=== PATIENT | female | born 1955 | race Caucasian/White ===

== ENCOUNTER → 2018-07-27 | Day surgery (SDC) | payer OTHER ==
--- NOTE | 2018-07-26 08:54 | Diagnostic Imaging Report ---
PROCEDURE: X-RAY CHEST, TWO VIEWS COMPARISON: None. INDICATIONS: PRE OPERATIVE CHEST X-RAY FOR KNEE SURGERY FINDINGS: The lungs are well-inflated. No focal airspace consolidation, pleural effusion, or pneumothorax. Mildly tortuous thoracic aorta with otherwise normal cardiomediastinal contour for technique. No acute osseous abnormality. Surgical clips project over the upper abdomen on the lateral radiograph and likely reflect cholecystectomy. CONCLUSION: No acute cardiopulmonary abnormality. Dictated by: Raymond Aldridge M.D. on 07/26/2018 at 9:05 Electronically approved by: Raymond Aldridge M.D. on 07/26/2018 at 9:05
[2018-07-26 08:55] LABS: BASOPHILS % 0.5 % (0.0-1.0); EOSINOPHILS # (AUTO) 0.2 (0.0-0.4); HEMATOCRIT 44.4 % (34.2-44.1); HEMOGLOBIN 14.2 g/dL (12.0-16.0); LYMPHOCYTES # (AUTO) 2.7 (1.0-3.2); LYMPHOCYTES % 33.6 % (18.0-39.1); MEAN CORPUSCULAR HEMOGLOBIN 28.2 pg (28-32); MEAN CORPUSCULAR VOLUME 88.3 fL (81-99); MONOCYTES # (AUTO) 0.6 (0.2-0.8); MONOCYTES % 7.7 % (4.4-11.3); NEUTROPHILS # (AUTO) 4.4 (2.1-6.9); PLATELET COUNT 207 x10e3/uL (140-360); RED BLOOD COUNT 5.03 x10e6/uL (3.6-5.1); RED CELL DISTRIBUTION WIDTH 13.7 % (11.7-14.4)
[~2018-07-27] MED LIST: BUPIVACAINE 0.5%/EPI 30 ML SDV INJ ONE; CEFAZOLIN SOD 2 GM/D5W 50ML 50 ML IV ONE; DEXAMETHASONE SOD PHOS INJ 4 MG/ML VIAL ONE; FENTANYL CITRATE/PF 100MCG/2 ML INJ ONE; KETOROLAC TROMETHAMINE 30 MG/ML VIAL ONE; LIDOCAINE HCL 2% LOCAL INJ 5 ML SDV VIAL INJ ONE; LOSARTAN POTASS25 MG PO; MIDAZOLAM HCL 2 MG/2 ML VIAL ONE; NEXIUM40 MG PO; ONDANSETRON HCL INJ 2 MG/ML VIAL ONE; PRAVACHOL40 MG PO; PROPOFOL IV EMULSION 10 MG/ML 20 ML VIAL ONE; SEVOFLURANE INHAL SOLN 250 ML PEN BTL ONE; TRILIPIX135 MG PO; VICODIN 5-5001 EACH PO; ZOFRAN ODT4 MG PO
--- OUTSIDE RECORDS SUMMARY | 2018-07-27 11:11 | XMS REPORT | Summary of Care ---
Author Author [facility] Outpatient Imaging [facility] [place] Address Unknown Phone Unavailable Encounter HQ Encntr_alias(FIN) [id number] Date(s): 02/20/15 - 02/20/15 [facility] [address] [place] [phone] Discharge Disposition: Home Attending Physician: Ian Lay DO Vital Signs No data available for this section Problem List No data available for this section Allergies, Adverse Reactions, Alerts No data available for this section Medications No data available for this section Results No data available for this section Immunizations No data available for this section Procedures No data available for this section Social History No data available for this section Assessment and Plan No data available for this section
--- OUTSIDE RECORDS SUMMARY | 2018-07-27 11:11 | XMS REPORT | Summary of Care ---
Author Organization Unknown Address Unknown Phone Unavailable Encounter HQ Julietter_génesis(FERNANDA) [id number] Date(s): 01/09/14 - 01/09/14 [facility] Outpatient Imaging - [address] [address] [place] Discharge Disposition: Home Physician Attending: Malena Hylton MD Reason for Visit 338 - PAIN NEC Problem List No data available for this section Allergies, Adverse Reactions, Alerts No data available for this section Medications No data available for this section Medications Administered During Your Visit No data available for this section Immunizations No data available for this section
--- OUTSIDE RECORDS SUMMARY | 2018-07-27 11:11 | XMS REPORT ---
[facility] Address Unknown Phone Unavailable Care Team Providers Care Claim Rep Name Role Phone ANKUR FRANKLIN Unavailable Unavailable Problems This patient has no known problems. Allergies, Adverse Reactions, Alerts This patient has no known allergies or adverse reactions. Medications This patient has no known medications. Results Test Description Test Time Test Comments Text Results Atomic Results Result Comments CHEST 2 VIEWS 2018-07-26 09:05:00 [place] [address] Patient Name: RACHAEL ASCENCIO MR #: [id number] : 1955 Age/Sex: 63/F Req #: [id number] Adm Physician: Ordered by: ANKUR FRANKLIN MD Report #: [id number] Location: OR Room/Bed: Procedure: [id number] DX/CHEST 2 VIEWS Exam Date: 07/26/18 Exam Time: 0830 REPORT STATUS: Signed PROCEDURE: X-RAY CHEST, TWO VIEWS COMPARISON: None. IN DICATIONS: PRE OPERATIVE CHEST X-RAY FOR KNEE SURGERY FINDINGS: The lungs are well-inflated. No focal airspace consolidation, pleural effusion, or pneumothorax. Mildly tortuous thoracic aorta with otherwise normal cardiomediastinal contour for technique. No acute osseous abnormality. Surgical clips project over the upper abdomen on the lateral radiograph and likely reflect cholecystectomy. CONCLUSION: No acute cardiopulmonary abnormality. Dictated by: En Montes M.D. on 07/26/2018 at 9:05 Electronically approved by: En Montes M.D. on at 9:05 Dictated By: EN MONTES MD 4 Transcribed By: PARMINDER on 07/26/18904 COPY TO: ANKUR FRANKLIN MD
--- OUTSIDE RECORDS SUMMARY | 2018-07-27 11:11 | XMS REPORT | Summary of Care ---
Author Author [facility] Outpatient Imaging [facility] Address Unknown Phone Unavailable Encounter HQ Clarantr_aliqueta(FIN) [id number] Date(s): 03/10/16 - 03/10/16 [facility] Outpatient Imaging [facility] [address] [facility], [address] [place] [phone] Discharge Disposition: Home or Self Care Attending Physician: Malena Hylton MD Vital Signs No data available for this [...]
--- OUTSIDE RECORDS SUMMARY | 2018-07-27 11:11 | XMS REPORT | Continuity of Care Document ---
Author Author Charito bolton Organization Interface Address Unknown Phone Unavailable Problems Problem Status Onset Date Classification Date Reported Comments Source M25.562 - PAIN IN LEFT KNEE M17.9 - "OST Active 12/19/2015 [facility] [address] 719.44 - JOINT PAIN-HAND Active 02/07/2015 [facility] [place] UNK Active 01/02/2015 [facility] 338 - PAIN NEC Active 01/02/2014 [facility] [place] Medications Medication Details Route Status Patient Instructions Ordering Provider Order Date Source Allergies, Adverse Reactions, Alerts Substance Category Reaction Severity Reaction type Status Date Reported Comments Source Immunizations Immunization Date Given Site Status Last Updated Comments Source Results Order Name Results Value Reference Range Date Interpretation Comments Source Knee 3 views DX Knee 3 views DX EXAM: X-RAY RIGHT KNEE 2 VIEWS DATE: 03/10/2016 7:57 AM CDT INDICATION: R93.7 Abnormal findings on diagnostic imaging of other parts of musculoskeletal system COMPARISON: None TECHNIQUE: AP, lateral, and patellar sunrise views FINDINGS: There is mild narrowing of the medial aspect of the patellofemoral joint compartment on the sunrise view. No fractures, osseous malalignment, or osseous destructive lesions are seen. No knee joint effusion or soft tissue abnormalities are noted. IMPRESSION: Mild patellofemoral joint space narrowing, likely from mild chondromalacia and osteoarthritis. 03/10/2016 - - Read by: Harley Bob MD Dictated Date/time: 03/10/16 08:18 Electronically Signed by: Harley Bob MD 03/10/16 08:19 FINAL REPORT Charito Bolton Knee 4+ views unilateral DX Knee 4+ views unilateral DX EXAM: X-RAY LEFT KNEE 4 VIEWS DATE: 12/23/2015 8:08 AM CDT INDICATION: M25.562 Pain in left knee COMPARISON: None TECHNIQUE: AP, lateral, patellar sunrise, and femoral tunnel views. AP and femoral tunnel views include the contralateral knee. FINDINGS: There is a slight degree of medial joint compartment joint space narrowing with no fractures, osseous malalignment, or osseous destructive lesions of the left knee. No left knee joint effusion or soft tissue abnormalities are seen. There is a mottled area of sclerosis involving the mid proximal tibial metaphysis and epiphysis measuring 1.5 x 2.3 cm and transverse and CC dimensions. This may represent a prominent tibial tuberosity en face versus a lesion possibly with cartilaginous matrix within it. Formal right knee series is recommended for further evaluation. IMPRESSION: 1. Mild medial joint compartment joint space narrowing of the left knee, possibly from mild chondromalacia or early osteoarthritis. 2. Nonspecific mottled sclerotic focus in the proximal right tibia which may represent a prominent tibial tuberosity versus a nonspecific lesion, possibly with cartilaginous matrix. Formal right knee series be recommended for further characterization. 12/23/2015 - - Read by: Harley Bob MD Dictated Date/time: 12/23/15 08:54 Electronically Signed by: Harley Bob MD 12/23/15 08:57 FINAL REPORT [facility] Hand 3 views DX Hand 3 views DX EXAM: X-RAY LEFT HAND 3 VIEWS DATE: 01/07/2015 COMPARISON EXAMS: None. CLINICAL INDICATION: Stiffness in the left thumb status post fall 4 months ago. Disorders of synovium, tendon, and bursa. DATA: None TECHNIQUE: AP, lateral, and oblique views DISCUSSION: There is mild joint space narrowing involving the first carpometacarpal joint. Mild osteophyte formation is seen at this joint. No fractures, osseous malalignment, or osseous destructive lesions are seen. Remainder the joint spaces the left hand are well-maintained. No soft tissue abnormalities are demonstrated. IMPRESSION: 1. Mild nonspecific joint space narrowing of the first carpometacarpal joint with mild osteophyte formation, most compatible with mild osteoarthritis. 2. No fractures or dislocations are demonstrated. 01/07/2015 - - Read by: Harley Bob MD Dictated Date/time: 01/07/15 10:36 Electronically Signed by: Harley Bob MD 01/07/15 10:39 FINAL REPORT [facility] Calcaneous series Calcaneous series 2 view(s) of the right calcaneus. INDICATION: Pain. COMPARISON: None. FINDINGS: No acute fracture or dislocation. Plantar calcaneal enthesophyte. Correlate clinically for plantar fasciitis. Intact Boehler's angle. Intact Achilles fat-pad. IMPRESSION: 1. No acute fracture. 2. Plantar calcaneal enthesophyte. 01/09/2014 - - Read by: Prabhu Arias MD Dictated Date/time: 01/09/14 23:36 Electronically Signed by: Prabhu Arias MD 01/09/14 23:37 FINAL REPORT [facility] Vital Signs Vital Sign Value Date Comments Source Encounters Location Location Details Encounter Type Encounter Number Reason For Visit Attending Provider ADM Date DC Date Status Source [facility] Outpatient Imaging - [place] [facility] [id number] Malena Hylton 01/09/2014 01/10/2014 [facility] Al[facility] Outpatient Imaging - [place] [facility] [id number] Malena Hylton 01/07/2015 01/08/2015 [facility] [place] [facility] [id number] Ian Lay 02/20/2015 2015 [facility] Outpatient Imaging - [place] [facility] [id number] Malena Hylton 12/23/2015 12/24/2015 [facility] Outpatient Imaging - [place] [facility] [id number] Malena Hylton 03/10/2016 03/11/2016 [facility] [place] Procedures Procedure Code Date Perfomer Comments Source
--- OUTSIDE RECORDS SUMMARY | 2018-07-27 11:11 | XMS REPORT | Summary of Care ---
Author Organization Unknown Address Unknown Phone Unavailable Encounter HQ Julietter_lorettaqueta(FERNANDA) [id number] Date(s): 01/07/15 - 01/07/15 [facility] Outpatient Imaging - [address], [address] [phone] Discharge Disposition: Home Physician Attending: Malena Hylton MD Vital Signs No data [...]
[2018-07-27 15:20] VITALS: BP 135/80
--- NOTE | 2018-07-28 14:02 | Operative Report ---
DATE OF PROCEDURE: July 27, 2018 PREOPERATIVE DIAGNOSES 1. Left knee medial meniscus tear. 2. Left knee degenerative joint disease in the knee. POSTOPERATIVE DIAGNOSES 1. Left knee medial meniscus tear. 2. Left knee degenerative joint disease in the knee. PROCEDURES PERFORMED: The patient underwent a left knee examination under anesthesia, left knee arthroscopy, left knee partial medial meniscectomy, left knee chondroplasty of the patella, the trochlea, the medial femoral condyle, the medial tibial plateau and the lateral tibial plateau. LITHOPRESS OPERATOR: Beulah Garcia. ANESTHESIA: General endotracheal intubation anesthesia. IV FLUIDS: Per the anesthesia record. OPERATIVE PROCEDURE IN DETAIL: Ms. Sharma was taken to the operating room, placed in the supine position on the operating room table. Following induction of general anesthesia as well as endotracheal intubation, the patient's left lower extremity was examined under anesthesia. It was found to have a mild effusion within the knee joint but an otherwise ligamentously stable knee. The patient's lower extremity was prepped and draped in standard surgical fashion. A 2-port technique used to provide this patient arthroscopic evaluation of the knee joint. Examination of the suprapatellar pouch and medial and lateral gutters found no evidence of loose bodies. There was, however, evidence of chondromalacia of the patellar and trochlear surfaces. The scope was advanced to the medial compartment. Examination of the medial compartment demonstrated a torn medial meniscus. There was also a chondromalacia of the articulating surfaces. A combination of biting forceps and a motorized shaver were used to resect the torn portion of meniscus. Chondroplasties of the medial femoral condyle and medial tibial plateau were performed at this time. The scope was then advanced to the intercondylar notch and the anterior cruciate ligament was identified and found to be intact. The scope was then advanced into the lateral compartment and examination of lateral compartment demonstrated chondromalacia of the lateral tibial plateau. A chondroplasty of this surface was performed. The scope was then placed in the suprapatellar pouch and chondroplasties of the patellar and trochlea were performed. The knee was then deflated of its sterile normal saline. Each of the portal sites were closed using 4-0 nylon suture. The portal sites as well as knee itself were then injected with half-percent Marcaine with epinephrine. Sterile dressings were applied. The patient was awakened and taken to the postanesthesia care in stable condition. Job#: [id number] TA
== END | disposition home or self-care (01) ==
LOC: OR 11:08
PROVIDERS: ATTEND Specialist
DX: S83.222A Peripheral tear of medial meniscus, current injury, left knee, initial encounter (principal); M17.12 Unilateral primary osteoarthritis, left knee; M22.42 Chondromalacia patellae, left knee; G47.33 Obstructive sleep apnea (adult) (pediatric); I10 Essential (primary) hypertension; E78.5 Hyperlipidemia, unspecified; I83.90 Asymptomatic varicose veins of unspecified lower extremity; X58.XXXA Exposure to other specified factors, initial encounter; Z01.810 Encounter for preprocedural cardiovascular examination; Z01.812 Encounter for preprocedural laboratory examination; Z01.818 Encounter for other preprocedural examination; Z68.41 Body mass index [BMI] 40.0-44.9, adult
CPT/HCPCS: 29881; 36415; 71046; 85025; 93005; J0690; J1100; J1885; J2001; J2250; J2405; J2704

== ENCOUNTER 2018-10-05 16:53 | Outpatient (RCR) | payer OTHER ==
[~2018-10-05 16:53] MED LIST changes: -BUPIVACAINE 0.5%/EPI 30 ML SDV INJ ONE; -CEFAZOLIN SOD 2 GM/D5W 50ML 50 ML IV ONE; -DEXAMETHASONE SOD PHOS INJ 4 MG/ML VIAL ONE; -FENTANYL CITRATE/PF 100MCG/2 ML INJ ONE; -KETOROLAC TROMETHAMINE 30 MG/ML VIAL ONE; -LIDOCAINE HCL 2% LOCAL INJ 5 ML SDV VIAL INJ ONE; -MIDAZOLAM HCL 2 MG/2 ML VIAL ONE; -ONDANSETRON HCL INJ 2 MG/ML VIAL ONE; -PROPOFOL IV EMULSION 10 MG/ML 20 ML VIAL ONE; -SEVOFLURANE INHAL SOLN 250 ML PEN BTL ONE
== END 2018-10-06 ==
LOC: PT 16:53
PROVIDERS: ATTEND Specialist
DX: M17.12 Unilateral primary osteoarthritis, left knee (principal); M25.562 Pain in left knee; M25.662 Stiffness of left knee, not elsewhere classified; M62.81 Muscle weakness (generalized); R26.2 Difficulty in walking, not elsewhere classified

== ENCOUNTER 2019-05-14 12:04 | Emergency (ER) | payer MEDICARE, OTHER ==
[~2019-05-14] VITALS: Ht 154.9 cm; Wt 97.1 kg
[2019-05-14 13:18] LABS: BASOPHILS % 0.2 % (0.0-1.0); EOSINOPHILS % 0.1 % (0.0-6.0); HEMOGLOBIN 13.7 g/dL (12.0-16.0); LYMPHOCYTES # (AUTO) 2.9 (1.0-3.2); LYMPHOCYTES % 18.4 % (18.0-39.1); MEAN CORPUSCULAR HEMOGLOBIN 28.1 pg (28-32); MEAN CORPUSCULAR HGB CONC 32.6 g/dL (31-35); MEAN CORPUSCULAR VOLUME 86.1 fL (81-99); MONOCYTES # (AUTO) 1.1 (0.2-0.8); MONOCYTES % 7.1 % (4.4-11.3); NEUTROPHILS # (AUTO) 11.7 (2.1-6.9); NEUTROPHILS % 73.4 % (38.7-80.0); PLATELET COUNT 282 x10e3/uL (140-360); RED BLOOD COUNT 4.88 x10e6/uL (3.6-5.1); RED CELL DISTRIBUTION WIDTH 13.1 % (11.7-14.4)
[2019-05-14 13:31] LABS: INR 1.04; PROTHROMBIN TIME 14.1 seconds (11.9-14.5)
[2019-05-14 13:40] LABS: ALANINE AMINOTRANSFERASE 27 IU/L (0-55); ALBUMIN 3.3 g/dL (3.5-5.0); ALBUMIN/GLOBULIN RATIO 0.8 (0.8-2.0); ALKALINE PHOSPHATASE 104 IU/L (40-150); ANION GAP 15.2 mmol/L (8-16); BLOOD UREA NITROGEN 14 mg/dL (7-26); BUN/CREATININE RATIO 19 (6-25); CALCIUM 9.7 mg/dL (8.4-10.2); CARBON DIOXIDE 27 mmol/L (22-29); CHLORIDE 103 mmol/L (98-107); CREATINE KINASE 119 IU/L (29-168); CREATININE, SERUM 0.73 mg/dL (0.57-1.11); EST GLOMERULAR FILTRATION RATE > 60 ML/MIN (60-); GLUCOSE 104 mg/dL (74-118); POTASSIUM 3.2 mmol/L (3.5-5.1); SODIUM 142 mmol/L (136-145)
[2019-05-14 13:52] LABS: BILIRUBIN,URINE NEGATIVE (NEGATIVE); CLARITY,URINE CLEAR (CLEAR); COLOR,URINE YELLOW (YELLOW); KETONES,URINE NEGATIVE (NEGATIVE); LEUKOCYTE ESTERASE ,URINE TRACE (NEGATIVE); NITRITE,URINE NEGATIVE (NEGATIVE); PROTEIN,URINE DIPSTICK TRACE (NEGATIVE); URINE UROBILINOGEN 0.2 mg/dL (0.2 - 1)
[2019-05-14 14:10] LABS: BACTERIA,URINE RARE /HPF; EPITHELIAL CELLS,URINE FEW /LPF
--- NOTE | 2019-05-14 14:12 | Diagnostic Imaging Report ---
History: Altered mental status Comparison studies: None Technique: Axial images were obtained from the skull base to the vertex. Coronal and sagittal reconstructions obtained from the axial data. Dose modulation, iterative reconstruction, and/or weight based adjustment of the mA/kV was utilized to reduce the radiation dose to as low as reasonably achievable. Intravenous contrast: None Findings: Scalp/skull: No abnormalities. No fractures, blastic or lytic lesions. Extra-axial spaces: No masses. No fluid collections. Brain sulci: Appropriate for age. Ventricles: Normal in size and configuration. No hydrocephalus. Parenchyma: No abnormal densities. No masses, hemorrhage, acute or chronic cortical vascular insults. Sellar/suprasellar region: No abnormalities Craniocervical junction: Patent foramen magnum. No Chiari one malformation. Incidental findings: Partially visualized air-fluid levels within the left greater and right sphenoid sinus and opacification of the left maxillary sinus and scattered ethmoid air cells. IMPRESSION: 1. No acute intracranial abnormalities. 2. Air-fluid levels within the sphenoid sinuses as well as partially visualized opacification of the left maxillary and ethmoid air cells. Correlation for signs/symptoms of sinusitis is recommended. Signed by: DR Garett Mendes M.D. on 05/14/2019 3:44 PM
--- NOTE | 2019-05-14 14:14 | Diagnostic Imaging Report ---
Frontal and lateral views of the chest. HISTORY: High blood pressure, altered mental status COMPARISON: Images from chest radiographs July 26, 2018. DISCUSSION: Soft tissue attenuation partially limits sensitivity of the exam. Overlying monitoring leads. Lungs: The lungs are well inflated. No evidence of a consolidative pneumonia or pulmonary alveolar edema. Pleura: No pleural effusion or pneumothorax. Heart and mediastinum: The cardiomediastinal silhouette appear(s) unremarkable. Bones and soft tissues: Mild multilevel degenerative disc changes. IMPRESSION: 1. No acute radiographic abnormality. 2. No significant interval change. Signed by: Dr. Pipo Sanon D.O., M.M.M. on 05/14/2019 2:10 PM
[2019-05-14] MEDS ORDERED: POTASSIUM CHLORIDE 20 MEQ TAB CR PO NR (15:02)
[2019-05-14] MEDS ORDERED: CEFTRIAXONE SOD 1 GM/NS 50 ML 50 ML IV ONE (16:15)
== END 2019-05-14 16:18 | disposition home or self-care (01) ==
LOC: ER 12:04
DX: I10 Essential (primary) hypertension (principal); J32.9 Chronic sinusitis, unspecified; N39.0 Urinary tract infection, site not specified; E78.5 Hyperlipidemia, unspecified; E66.9 Obesity, unspecified
CPT/HCPCS: 36415; 70450; 71046; 80053; 81001; 82550; 82553; 84484; 85025; 85610; 85730; 93005; 99284; J0696

== ENCOUNTER 2020-03-19 11:53 | Emergency (ER) | payer MEDICARE ==
[~2020-03-19] VITALS: Ht 154.9 cm; Wt 97.1 kg
--- NOTE | 2020-03-19 12:38 | Emergency Department Note ---
History of Present Illnes History of Present Illness Chief Complaint: Hypertension History of Present Illness This is a 65 year old female Chief Complaint Comment pt aaox4. ambul atory. pt states checked her bp at home and was 221/103. +hx of htn and "take two pills." no cp no sob. compliant with meds. . Historian: Patient Arrival Mode: Car Last Waxer Required: No Onset (how long ago): day(s) (1) Severity: mild Onset quality: sudden Duration (how long): day(s) (1) Timing of current episode: constant Progression: unchanged Chronicity: new Context: Denies recent illness Relieving factors: none Exacerbating factors: none Associated symptoms: Reports denies other symptoms Past Medical/Family History Physician Review I have reviewed the patient's past medical and family history. Any updates have been documented here. Past Medical History Recent Fever: No Clinical Suspicion of Infectio: No New/Unexplained Change in Ment: No Past Medical History: Hypertension, Hyperlipedemia Other Medical History: OBESITY NON SMOKER Past Surgical History: Cholecysctectomy, Hysterectomy, Knee Replacement, Orthopedic Implants Other Surgery: RIGHT WRIST Social History Smoking Cessation: Never Smoker Counseling Performed: No Alcohol Use: None Any Illegal Drug Use: No Other Last Tetanus: UTD Any Pre-Existing Lines (PICC,: No Review of Systems Review of Systems Constitutional: Reports no symptoms EENTM: Reports no symptoms Cardiovascular: Reports no symptoms Respiratory: Reports no symptoms Gastrointestinal: Reports no symptoms Genitourinary: Reports no symptoms Musculoskeletal: Reports no symptoms Integumentary: Reports no symptoms Neurological: Reports no symptoms Psychological: Reports no symptoms Endocrine: Reports no symptoms Hematological/Lymphatic: Reports no symptoms Physical Exam Related Data Allergies: Coded Allergies: No Known Allergies (Unverified , 05/05/13) Triage Vital Signs Vital Signs Date Time Temp Pulse Resp B/P (MAP) Pulse Ox O2 Delivery O2 Flow Rate FiO2 03/19/20 12:01 98.4 84 16 195/80 100 Room Air Vital signs reviewed: Yes Physical Exam CONSTITUTIONAL Constitutional: Present well-developed, Present well-nourished HENT HENT: Present normocephalic, Present atraumatic, Present oropharynx clear/moist, Present nose normal HENT L/R: Present left ext ear normal, Present right ext ear normal EYES Eyes: Reports PERRL, Reports conjunctivae normal NECK Neck: Present ROM normal PULMONARY Pulmonary: Present effort normal, Present breath sounds normal CARDIOVASCULAR Cardiovascular: Present regular rhythm, Present heart sounds normal, Present capillary refill normal, Present normal rate GASTROINTESTINAL Abdominal: Present soft, Present nontender, Present bowel sounds normal GENITOURINARY Genitourinary: Present exam deferred SKIN Skin: Present warm, Present dry MUSCULOSKELETAL Musculoskeletal: Present ROM normal NEUROLOGICAL Neurological: Present alert, Present oriented x 3, Present no gross motor or sensory deficits PSYCHOLOGICAL Psychological: Present mood/affect normal, Present judgement normal Results Laboratory Lab results reviewed: Yes Procedures 12 Lead ECG Interpretation ECG Interpretation : Last Waxer: Interpreted by ED physician Date: Mar 19, 2020 Rhythm: sinus rhythm Rate: normal QRS axis: normal ST segments normal: Yes T waves normal: Yes Clinical Impression: non-specific ECG Assessment & Plan Medical Decision Making MDM 65-year-old female sent for hypertension. She is a symptomatically this time. She currently takes amlodipine 2.5 mg at night. Laboratory workup was unremarkable and at this time there are no indications of an organ dysfunction. She was given potassium replacement for a potassium of 3.0 in the emergency department and 5 milligrams of amlodipine. Instructed her to increase her amlodipine to 5 mg daily and to call her doctor for further medication changes. Patient states agreement plan she is appropriate for discharge. Reassessment Reassessment time: 13:36 Reassessment Well appearing, NAD Assessment & Plan Final Impression: (1) Hypertension Depart Disposition: HOME, SELF-CARE Last Vital Signs Date Time Temp Pulse Resp B/P (MAP) Pulse Ox O2 Delivery O2 Flow Rate FiO2 03/19/20 12:01 98.4 84 16 195/80 100 Room Air Home Meds Reported Medications Losartan Potassium (LOSARTAN POTASSIUM) 25 Mg Tablet, 25 MG PO DAILY 05/04/13 NADINE RM MD Mar 19, 2020 12:38
--- NOTE | 2020-03-19 12:49 | NUR ---
PATIENT TO ROOM 1
[2020-03-19 12:52] LABS: BASOPHILS % 0.4 % (0.0-1.0); EOSINOPHILS # (AUTO) 0.1 (0.0-0.4); EOSINOPHILS % 1.1 % (0.0-6.0); HEMATOCRIT 46.5 % (34.2-44.1); HEMOGLOBIN 14.9 g/dL (12.0-16.0); LYMPHOCYTES # (AUTO) 2.1 (1.0-3.2); LYMPHOCYTES % 23.4 % (18.0-39.1); MEAN CORPUSCULAR HEMOGLOBIN 27.5 pg (28-32); MONOCYTES # (AUTO) 0.7 (0.2-0.8); NEUTROPHILS # (AUTO) 6.1 (2.1-6.9); NEUTROPHILS % 66.8 % (38.7-80.0); PLATELET COUNT 177 x10e3/uL (140-360); RED BLOOD COUNT 5.41 x10e6/uL (3.6-5.1); RED CELL DISTRIBUTION WIDTH 13.5 % (11.7-14.4)
[2020-03-19 13:04] LABS: BILIRUBIN,URINE NEGATIVE (NEGATIVE); CLARITY,URINE CLEAR (CLEAR); COLOR,URINE YELLOW (YELLOW); KETONES,URINE NEGATIVE (NEGATIVE); LEUKOCYTE ESTERASE ,URINE NEGATIVE (NEGATIVE); NITRITE,URINE NEGATIVE (NEGATIVE); PROTEIN,URINE DIPSTICK NEGATIVE (NEGATIVE); URINE UROBILINOGEN 0.2 mg/dL (0.2 - 1)
[2020-03-19 13:11] LABS: ALANINE AMINOTRANSFERASE 46 IU/L (0-55); ALBUMIN 4.2 g/dL (3.5-5.0); ALBUMIN/GLOBULIN RATIO 1.2 (0.8-2.0); ALKALINE PHOSPHATASE 93 IU/L (40-150); BLOOD UREA NITROGEN 10 mg/dL (7-26); BUN/CREATININE RATIO 12 (6-25); CALCIUM 9.8 mg/dL (8.4-10.2); CARBON DIOXIDE 28 mmol/L (22-29); CHLORIDE 103 mmol/L (98-107); CREATININE, SERUM 0.81 mg/dL (0.57-1.11); EST GLOMERULAR FILTRATION RATE > 60 ML/MIN (60-); GLUCOSE 98 mg/dL (74-118); SODIUM 141 mmol/L (136-145)
[2020-03-19 13:15] LABS: BACTERIA,URINE FEW /HPF; EPITHELIAL CELLS,URINE FEW /LPF; RBC,URINE 0-5 /HPF (0-5); WBC,URINE (MAN) 0-5 /HPF (0-5)
--- OUTSIDE RECORDS SUMMARY | 2020-03-19 13:16 | XMS REPORT | Continuity of Care Document ---
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 Name Role Phone [facility] Unavailable Un available Problems Problem Status Onset Date Classification Date Reported Comments Source M25.562 - PAIN IN LEFT KNEE M17.9 - "OST Active 12/19/2015 [facility] 719.44 - JOINT PAIN-HAND Active 02/07/2015 [facility] UNK Active 0 01/02/2015 [facility] - PAIN NEC Active 01/02/2014 [facility] [place] Vaccines Prophylactic Need Against Influenza Active 10/09/2013 [facility] Esophageal Reflux Active 10/09/2013 [facility] Tinea Cruris Active 10/09/2013 [facility] Hypertension Active 10/09/2013 [facility] Hyperlipidemia Active 10/09/2013 [facility] Taking Medication For A Long Time Active 10/09/2013 [facility] Medications Medication Details Route Status Patient Instructions Ordering Provider Order Date Source Losartan Potassium-HCTZ 100-25 MG Oral Tablet ; Start Date: 10/09/2013 (Active) Active 10/09/2013 [facility] AmLODIPine Besylate 5 MG Oral Tablet ; Start Date: 10/01/2013; End Date: (Active) Active 10/01/2013 [facility] Fenofibric Acid 135 MG Oral Capsule Delayed Release ; Start Date: 10/01/2013; End Date: (Active) Active 10/01/2013 [facility] NexIUM 40 MG Oral Capsule Delayed Release ; Start Date: 09/12/2013; End Date: (Active) Active 09/12/2013 [facility] Ranitidine HCl 300 MG Oral Tablet ; Start Date: 05/26/2013 (Active) Active 05/26/2013 [facility] Econazole Nitrate 1 % External Cream ; Start Date: 05/26/2013 (Active) Active 05/26/2013 [facility] AmLODIPine Besylate 5 MG Oral Tablet (Active) Active [facility] NexIUM 40 MG Oral Capsule Delayed Release (Active) Active [facility] Trilipix 135 MG Oral Capsule Delayed Release (Active) Active [facility] Losartan Potassium-HCTZ 100-25 MG Oral Tablet (Active) Active [facility] Pravastatin Sodium 10 MG Oral Tablet (Active) Active [facility] Multi Vitamin/Minerals Oral Tablet (Active) Active [facility] Calcium TABS (Active) Active [facility] Allergies, Adverse Reactions, Alerts Substance Category Reaction Severity Reaction type Status Date Reported Comments Source No Known Drug Allergies drug a llergy drug aller gy Active [facility] Immunizations Immunization Date Given Site Status Last Updated Comments Source Fluzone Intramuscular Injectable 05/26/2013 completed [facility] Hepatitis A completed [facility] Influenza completed [facility] Results No Data Provided for This Section Pathology Reports No Data Provided for This Section Diagnostic Reports Report Value Date Source Breast Limited Uni US LIMITED ULTRASOUND OF LEFT BREAST: 01/29/2020 CLINICAL: N63.20 Unspecified Lump In The Left Breast, Unspecified Quadrant/R92.8 Other Abnormal And Inconclusive Findings On Diagnostic Imaging Of Breast; N63.20 Unspecified Lump In The Left Breast, Unspecified Quadrant. COMPARISON:Comparison is made to exams dated: 01/29/2020 mammogram, 11/28/2018 ultrasound, 11/28/2018 mammogram, and 10/24/2018 mammogram - [facility]. TECHNIQUE: Color flow and real-time ultrasound of the left breast were performed on the areas of interest. FINDINGS: There is a stable oval 1.3 x 1.3 x 0.7 cm mass with a circumscribed margin in the left breast at 1 o'clock middle depth 9 cm from the nipple. This oval mass is hypoechoic. Color flow imaging demonstrates that there is no vascularity present. IMPRESSION: PROBABLY BENIGN RECOMMENDATION:The stable oval mass in the left breast resembles a fibroadenoma and is probably benign. A follow-up mammogram and an ultrasound in 12 months is recommended.(01/28/2021) Magnification views of left breast calcifications may be performed at that time to document stability. Professional services are provided by the [facility]. Hung Lema M.D. cm/:01/29/2020 13:41:02 Fashion Intern(s): Natalia Wiley [facility] letter sent: BI-RADS 3 Ultrasound BI-RADS: 3 Probably benign 01/29/2020 [facility] Breast Mammo Diag CHAD w spencer incl CAD MA BILATERAL DIGITAL DIAGNOSTIC MAMMOGRAM 3D/2D WITH CAD: 01/29/2020 CLINICAL: /R92.8. Current study was evaluated with a Computer Aided Detection (CAD) system. COMPARISON:Comparison is made to exams dated: 11/28/2018 mammogram and 10/24/2018 mammogram - [facility]. TECHNIQUE: Digital Breast Tomosynthesis was performed and utilized for Interpretation. Current study was also evaluated with a Computer Aided Detection (CAD) system. FINDINGS: The tissue of both breasts is heterogeneously dense, which could obscure detection of small masses. Scattered stable calcifications are noted bilaterally. There is a stable oval equal density mass with a circumscribed margin in the left breast at 1 o'clock middle depth 9 cm from the nipple. No other significant masses, calcifications, or other findings are seen in either breast. IMPRESSION: INCOMPLETE: NEEDS ADDITIONAL IMAGING EVALUATION RECOMMENDATION:The stable oval equal density mass in the left breast is indeterminate. An ultrasound is recommended. This exam was interpreted at [id number] for [place], SL 15. Professional services are provided by the [facility] of Diagnostic Imaging. Hung Lema M.D., cm/penrad:01/29/2020 12:11:28 Fashion Intern(s): RT Kelly(R)(M), [facility] Mammogram BI-RADS: 0 Indeterminate 01/29/2020 [facility] Bone Density DXA [employer] MA BONE DENSITY ASSESSMENT: 01/29/2020 CLINICAL DATA: Post menopausal. /Z13.820/Z78.0 RISK FACTORS: race. FINDINGS: Bone density evaluation was performed 01/29/2020 on the right femur neck using a Hologic unit. The BMD average for the exam is 0.788 g/cm2. The T-score is -0.60 and the Z-score is 1.10. This matches the World Health Organization's criteria for normal bone density and places the patient within normal limits of fracture risk. An additional bone density evaluation was performed 01/29/2020 on the left femur neck using a Hologic unit. The BMD average for the exam is 0.771 g/cm2. The T- score is -0.70 and the Z-score is 0.90. This matches the World Health Organization's criteria for normal bone density and places the patient within normal limits of fracture risk. An additional bone density evaluation was performed 01/29/2020 on the right hip using a Hologic unit. The BMD average for the exam is 0.918 g/cm2. The T-score is -0.20 and the Z-score is 1.10. This matches the World Health Organization's criteria for normal bone density and places the patient within normal limits of fracture risk. An additional bone density evaluation was performed 01/29/2020 on the left hip using a Hologic unit. The BMD average for the exam is 0.886 g/cm2. The T-score is -0.50 and the Z-score is 0.90. This matches the World Health Organization's criteria for normal bone density and places the patient within normal limits of fracture risk. An additional bone density evaluation was performed 01/29/2020 on the AP L1-L3 region of spine using a Hologic unit. The BMD average for the exam is 1.015 g/cm2. The Z-score is 1.80. This matches the World Health Organization's criteria for normal bone density and places the patient within normal limits of fracture risk. IMPRESSION: BONE DENSITY WITHIN NORMAL LIMITS Patient is at normal risk for fracture. This exam was interpreted at [id number] for NICK Abdalla 15. Hung Lema M.D. cm/penrad:01/29/2020 11:27:19 Fashion Intern(s): Livier LEGER(R)(M), [facility] 01/29/2020 [facility] [place] Breast Limited Uni US LIMITED ULTRASOUND OF LEFT BREAST: 11/28/2018 CLINICAL: /Callback. COMPARISON:Comparison is made to exams dated: 11/28/2018 mammogram and 10/24/2018 mammogram - [facility]. TECHNIQUE: Color flow and real-time ultrasound of the left breast were performed on the areas of interest. FINDINGS: There is an oval mass with a circumscribed margin in the left breast at 1 o'clock middle depth 9 cm from the nipple. This oval mass is hypoechoic. Color flow imaging demonstrates that there is no vascularity present. IMPRESSION: PROBABLY BENIGN RECOMMENDATION:The oval mass in the left breast resembles a fibroadenoma and is probably benign. A follow-up mammogram and an ultrasound in 6 months is recommended to demonstrate stability.(05/30/2019) This exam was interpreted at [id number] for NICK Abdalla. Professional services are provided by the [facility] Division of Diagnostic Imaging. Hung Lema M.D. cm/penrad:11/28/2018 16:02:56 Fashion Intern(s): Monalisa Lynn, [facility] letter sent: BI-RADS 3 Ultrasound BI-RADS: 3 Probably benign 11/28/2018 [facility] [place] Breast Mammo Diag UNI incl CAD MA UNILATERAL LEFT DIGITAL DIAGNOSTIC MAMMOGRAM WITH CAD: 11/28/2018 CLINICAL: R92.8 Other Abnormal And Inconclusive Findings On Diagnostic Imaging Of Breast/R92.8 Other Abnormal And Inconclusive Findings On Diagnostic Imaging Of Breast. Current study was evaluated with a Computer Aided Detection (CAD) system. COMPARISON:Comparison is made to exam dated: 10/24/2018 mammogram - [facility]. TECHNIQUE: Mammographic views were obtained using digital acquisition. Current study was also evaluated with a Computer Aided Detection (CAD) system. FINDINGS: The tissue of left breast is heterogeneously dense, which could obscure detection of small masses. There is a 1.4 cm oval equal density mass with an obscured margin in the left breast at 1 o'clock middle depth 9 cm from the nipple. There also are grouped amorphous round calcifications in the left breast at 12 o'clock middle depth 11 cm from the nipple. There are multiple other similar appearing groups of calcifications seen in the right breast. No other significant masses or calcifications are seen in the breast. IMPRESSION: INCOMPLETE: NEEDS ADDITIONAL IMAGING EVALUATION RECOMMENDATION:The 1.4 cm oval equal density mass in the left breast at 1 o'clock middle depth is indeterminate. An ultrasound is recommended. The grouped amorphous round calcifications in the left breast at 12 o'clock middle depth are probably benign. This exam was interpreted at [id number] for NICK Abdalla. [facility]. Hung Lema M.D. cm/penrad:11/28/2018 16:01:54 Fashion Intern(s): RT Rhonda(R)(M), [facility] Mammogram BI-RADS: 0 Indeterminate 11/28/2018 [facility] [place] Breast Mammo Scrn CHAD incl CAD MA BILATERAL DIGITAL SCREENING MAMMOGRAM WITH CAD: 10/24/2018 CLINICAL: Routine/Screening. Current study was evaluated with a Computer Aided Detection (CAD) system. COMPARISON:No prior exams were available for comparison. TECHNIQUE: Mammographic views were obtained using digital acquisition. Current study was also evaluated with a Computer Aided Detection (CAD) system. FINDINGS: The tissue of both breasts is heterogeneously dense, which could obscure detection of small masses. There are grouped calcifications in the left breast at 12 o'clock middle depth 10 cm from the nipple. There also is a 1.4 cm oval equal density asymmetry with an obscured and circumscribed margin in the left breast anterior depth superior region seen on the mediolateral oblique view only 10 cm from the nipple. No other significant masses, calcifications, or other findings are seen in either breast. IMPRESSION: INCOMPLETE: NEEDS ADDITIONAL IMAGING EVALUATION RECOMMENDATION:The grouped calcifications in the left breast at 12 o'clock middle depth are indeterminate. Magnification and lateral views are recommended. The 1.4 cm oval equal density asymmetry in the left breast anterior depth superior region seen on the mediolateral oblique view only is indeterminate. Diagnostic mammography views as well as an ultrasound are recommended. This exam was interpreted at [id number] for PILO Simeon. SUMMARY: The staff of [facility] will contact the referring physician for orders and then contact the patient to schedule the additional studies. A supplemental report will be issued following interpretation of the additional studies. Professional services are provided by the [facility] of Diagnostic Imaging. Tiffanie vaughn/katina:10/25/2018 14:00:05 Fashion Intern(s): RT Rhonda(R)(M), [facility] letter sent: BI-RADS 0 Mammogram BI-RADS: 0 Indeterminate 10/24/2018 [facility] Knee 3 views DX EXAM: X-RAY RI GHT KNEE 2 VIEWS DATE: 03/10/2016 7:57 AM [...] likely from mild chondromalacia and osteoarthritis. 03/10/2016 [facility] Knee 4+ views unilateral DX EX AM: X-RAY LEFT KNEE 4 VIEWS DATE: 12/23/2015 [...] IMPRESSION: 1. Mild medial joint compartment joint s pace narrowing of the left knee, possibly from mild chondromalacia or early osteoarthritis. 2. Nonspecific mottled sclerotic focus i n the proximal right tibia which may represent a prominent tibial tuberosity versus a nonspecific lesion, possibly with cartilaginous matrix. Formal right knee series be recommended for further characterization. 12/23/2015 [facility] Hand 3 views DX EXAM: X-RAY LE FT HAND 3 VIEWS DATE: 01/07/2015 COMPARISON EXAMS: [...] demonstrated. IMPRESSION: 1. Mild nonspecific joint space narrowin g of the first carpometacarpal joint with mild osteophyte formation, most compatible with mild osteoarthritis. 2. No fractures or dislocations are demo nstrated. 01/07/2015 [facility] Calcaneous series 2 view(s) of the right calcaneus. INDICATION: Pain. COMPARISON: None. FINDINGS: No acute fracture or dislocation. Plantar calcaneal enthesophyte. Correlate clinically for plantar fasciitis. Intact Boehler's angle. Intact Achilles fat-pad. IMPRESSION: 1. No acute fracture. 2. Plantar calcaneal enthesophyte. 01/09/2014 [facility] Consultation Notes No Data Provided for This Section Discharge Summaries No Data Provided for This Section History and Physicals No Data Provided for This Section Vital Signs No Data Provided for This Section Encounters Location Location Details Encounter Type Encounter Number Reason For Visit Attending Provider ADM Date DC Date Status Source AUDIT [id number] 05/26/2013 05/26/2013 [facility] AUDIT [id number] 09/12/2013 09/12/2013 [facility] A[facility]IT [id number] 10/01/2013 10/02/2013 [facility] AUDIT [id number] 10/09/2013 10/09/2013 [facility] [place] [facility] [id number] 00 Malena Hylton 01/09/2014 01/10/2014 KRISD [place] [facility] Out[facility] [place] [facility] [id number] Malena Hylton [facility]/07/2015 [facility] [place] [facility] [id number] Ian Rosanne 02/20/2015 2015 JAX oRsas [facility] [place] [facility] [id number] 03 Malena Hylton 12/23/2015 [facility]24[facility] [place] [facility] [id number] 04 Malena Warner 03/10/2016 03/11/2016 [facility] Outpatient Imaging - [place] [facility] [id number] 05 Malena Warner 10/24/2018 10/25/2018 [facility] [place] [facility] Out[facility] [place] [facility] [id number] 06 Malena Hylton 11/28/2018 11/29/2018 KRISShaunna Alvarenga [facility] Outpatient [facility] [place] [facility] [id number] 07 Malena Hylton 01/29/2020 01/30/2020 [facility] [place] Procedures No Data Provided for This Section Assessment and Plan No Data Provided for This Section Plan of Care Plan of Care Date Source [QLH] CMP W/EGFR 05/26/2013 Routine[Q] L IPID PANEL WITH REFLEX TO DIRECT LDL 05/26/2013 Routine[QLH] VITAMIN D, 1,25 DIHYDROXY LC/MS/MS 05/26/2013 Routine[QLH] TSH, 3RD GENERATION W/REFLEX TO FT4 05/26/2013 Routine[Q] METHYLMALONIC ACID, GC/MS/MS 05/26/2013 Routine 05/26/2013 [facility] Social History Social History Date Source No data available for this section 01/30/2020 [facility] No data available for this section 03/11/2016 [facility] Deyvi No data available for this section 2015 [facility] Marital History - Currently (Active) Never A Smoker (Active) Never Used Drugs (Active) Being A Social Drinker (Active) 10/09/2013 [facility] Family History Value Date S ource Maternal history of Hypertension (V17.49 ); (Active) Paternal history of Cirrhosis (Active) Paternal history of Alcoholism (Active) 10/09/2013 [facility] Maternal history of Hypertension (V17.49 ); (Active) Paternal history of Cirrhosis (Active) Paternal history of Alcoholism (Active) 10/02/2013 [facility] Maternal history of Hypertension (V17.49 ); (Active) Paternal history of Cirrhosis (Active) Paternal history of Alcoholism (Active) 09/12/2013 [facility] Maternal history of Hypertension (V17.49 ); (Active) Paternal history of Cirrhosis (Active) Paternal history of Alcoholism (Active) 05/26/2013 [facility] Advance Directives Order Name Results Value Date Source Advance Directives Advance Dir ectives No Advance Directives available. 10/09/2013 [facility] Advance Directives Advance Dir ectives No Advance Directives available. 10/02/2013 [facility] Advance Directives Advance Dir ectives No Advance Directives available. 09/12/2013 [facility] Advance Directives Advance Dir ectives No Advance Directives available. 05/26/2013 [facility] Functional Status No Data Provided for This Section
--- OUTSIDE RECORDS SUMMARY | 2020-03-19 13:16 | XMS REPORT | Summary of Care ---
Author Author [facility] - [facility] Organization [facility] - [facility] Address Unknown Phone Unavailable Encounter HQ Encntr_alias(FIN) [id number] Date(s): 01/29/20 - 01/29/20 [facility] Outpatient Imaging - [address] [address] [phone] Discharge Disposition: Home or Self Care Attending Physician: Malena Hylton MD Referring Physician: Malena Hylton MD Vital Signs No [...]
--- OUTSIDE RECORDS SUMMARY | 2020-03-19 13:16 | XMS REPORT | Summary of Care ---
Author Author [facility] Outpatient Imaging - [facility] Organization [facility] Outpatient Imaging - [facility] Address Unknown Phone Unavailable Encounter HQ Encntr_alias(FIN) [id number] Date(s): 10/24/18 - 10/24/18 [facility] Outpatient Imaging - [address] [phone] Discharge Disposition: Home or Self Care Attending [...]
--- OUTSIDE RECORDS SUMMARY | 2020-03-19 13:16 | XMS REPORT ---
Author Author RACHAEL ORDONEZ Organization Unknown Address Unknown Phone Care Team Providers Care Charge Entry Specialist Name Role Phone ELMIRA ORDONEZ PP Unavailable Reason for Referral No Reason for Referral was given. History of Present Illness No HPI available. Problems * Normal Routine History And Physical Adult (V70.0); (Active) * Vaccines Prophylactic Need Against Influenza (V04.81); (Active) * Esophageal Reflux (530.81); (Active) * Tinea Cruris (110.3); (Active) * Hypertension (401.9); (Active) * Hyperlipidemia (272.4); (Active) * Taking Medication For A Long Time (V58.69); (Active) Medication * AmLODIPine Besylate 5 MG Oral Tablet; TAKE 1 TABLET BY MOUTH DAILY; Start Date: 10/01/2013 (Active) * NexIUM 40 MG Oral Capsule Delayed Release; TAKE ONE CAPSULE BY MOUTH DAILY; Start Date: 09/12/2013; End Date: (Active) * Trilipix 135 MG Oral Capsule Delayed Release; TAKE 1 CAPSULE DAILY. (Active) * Losartan Potassium-HCTZ 100-25 MG Oral Tablet; TAKE 1 TABLET DAILY. (Active) * Pravastatin Sodium 10 MG Oral Tablet; TAKE 1 TABLET DAILY. (Active) * Multi Vitamin/Minerals Oral Tablet (Active) * Calcium TABS; TAKE 1 TABLET DAILY (Active) * Ranitidine HCl 300 MG Oral Tablet; TAKE 1 TABLET DAILY AT BEDTIME.; Start Date: 05/26/2013 (Active) * Econazole Nitrate 1 % External Cream; APPLY AND GENTLY MASSAGE INTO AFFECTED AREA(S) TWICE DAILY.; Start Date: 05/26/2013 (Active) * Fenofibric Acid 135 MG Oral Capsule Delayed Release; TAKE ONE CAPSULE BY MOUTH DAILY; Start Date: 10/01/2013; End Date: (Active) Allergies and Adverse Reactions * No Known Drug Allergies (Active) Past Medical History * History of Polyps Of The Sigmoid Colon (211.3); (Resolved) * History of Hypertension (401.9); (Resolved) * History of Hyperlipidemia (272.4); (Resolved) * History of Esophageal Reflux (530.81); (Resolved) Procedures Procedure Procedure Date Date Completed Status Hysterectomy - - Resolved Oophorectomy - Bilat (Removal Of Both Ovaries) Laparoscopic - - Resolved Cholecystectomy - - Resolved Wrist Surgery - - Resolved Immunization * Hepatitis A * Influenza * Fluzone Intramuscular Injectable (Lot #: [id number]) - Administered on: 05/26/2013 Family History * Maternal history of Hypertension (V17.49); (Active) * Paternal history of Cirrhosis (Active) * Paternal history of Alcoholism (Active) Social History * Marital History - Currently (Active) * Never A Smoker (Active) * Never Used Drugs (Active) * Being A Social Drinker (Active) Advance Directives * No Advance Directives available. Encounters * AUDIT 10/01/2013
--- OUTSIDE RECORDS SUMMARY | 2020-03-19 13:16 | XMS REPORT ---
Author Author RACHAEL Hitchcock Organization Unknown Address Unknown Phone Care Team Providers Care Account Specialist Name Role Phone Michelle Hitchcock PP Unavailable Reason for Referral No Reason [...] 5 MG Oral Tablet; TAKE 1 TABLET DAILY. (Active) * NexIUM 40 MG Oral Capsule [...] AREA(S) TWICE DAILY.; Start Date: 05/26/2013 (Active) Allergies and Adverse Reactions * No [...] Influenza * Fluzone Intramuscular Injectable (Lot #: [id number]) - Administered on: 05/26/2013 Family History * Maternal history of Hypertension (V17.49); (Active) * Paternal history of Cirrhosis (Active) * Paternal history of Alcoholism (Active) Social History * Marital History - Currently (Active) * Never A Smoker (Active) * Never Used Drugs (Active) * Being A Social Drinker (Active) Advance Directives * No Advance Directives available. Encounters * AUDIT 09/12/2013
--- OUTSIDE RECORDS SUMMARY | 2020-03-19 13:16 | XMS REPORT ---
Author Author RACHAEL Don Organization Unknown Address Unknown Phone Care Team Providers Care Aircraft Captain Name Role Phone Neema Don PP Unavailable Reason for Referral No Reason [...] 40 MG Oral Capsule Delayed Release; TAKE 1 CAPSULE DAILY (Active) * Trilipix 135 MG Oral Capsule [...] 1 TABLET DAILY AT BEDTIME.; Start Date: 05/26/2013; End Date: (Active) * Econazole Nitrate 1 % External Cream; APPLY AND GENTLY MASSAGE INTO AFFECTED AREA(S) TWICE DAILY.; Start Date: 05/26/2013; End Date: (Active) Allergies and Adverse Reactions [...] Influenza * Fluzone Intramuscular Injectable (Lot #: [id number]) - Administered on: 05/26/2013 Family History * Maternal history of Hypertension (V17.49); (Active) * Paternal history of Cirrhosis (Active) * Paternal history of Alcoholism (Active) Social History * Marital History - Currently (Active) * Never A Smoker (Active) * Never Used Drugs (Active) * Being A Social Drinker (Active) Treatment Plan * [QLH] CMP W/EGFR 05/26/2013 Routine * [Q] LIPID PANEL WITH REFLEX TO DIRECT LDL 05/26/2013 Routine * [QLH] VITAMIN D, 1,25 DIHYDROXY LC/MS/MS 05/26/2013 Routine * [QLH] TSH, 3RD GENERATION W/REFLEX TO FT4 05/26/2013 Routine * [Q] METHYLMALONIC ACID, GC/MS/MS 05/26/2013 Routine Advance Directives * No Advance Directives available. Encounters * AUDIT 05/26/2013
--- OUTSIDE RECORDS SUMMARY | 2020-03-19 13:16 | XMS REPORT ---
Author Author RACHAEL ORDONEZ Organization Unknown Address Unknown Phone Care Team Providers Care Machine Container Washer Name Role Phone ELMIRA ORDONEZ PP Unavailable [...] 1 TABLET BY MOUTH DAILY; Start Date: 10/01/2013; End Date: (Active) * NexIUM 40 MG Oral Capsule Delayed Release; TAKE ONE CAPSULE BY MOUTH DAILY; Start Date: 09/12/2013; End Date: (Active) * Trilipix 135 MG Oral Capsule Delayed Release; TAKE 1 CAPSULE DAILY. (Active) * Pravastatin Sodium 10 MG Oral Tablet; TAKE 1 TABLET DAILY. (Active) * Calcium TABS; TAKE 1 TABLET DAILY (Active) * Multi Vitamin/Minerals Oral Tablet (Active) * Ranitidine HCl 300 MG Oral Tablet; TAKE 1 TABLET DAILY AT BEDTIME.; Start Date: 05/26/2013 (Active) * Econazole Nitrate 1 % External Cream; APPLY AND GENTLY MASSAGE INTO AFFECTED AREA(S) TWICE DAILY.; Start Date: 05/26/2013 (Active) * Fenofibric Acid 135 MG Oral Capsule Delayed Release; TAKE ONE CAPSULE BY MOUTH DAILY; Start Date: 10/01/2013; End Date: (Active) * Losartan Potassium-HCTZ 100-25 MG Oral Tablet; TAKE 1 TABLET BY MOUTH DAILY; Start Date: 10/09/2013 (Active) Allergies and Adverse Reactions * No [...] Influenza * Fluzone Intramuscular Injectable (Lot #: [id number]) - Administered on: 05/26/2013 Family History * Maternal history of Hypertension (V17.49); (Active) * Paternal history of Cirrhosis (Active) * Paternal history of Alcoholism (Active) Social History * Marital History - Currently (Active) * Never A Smoker (Active) * Never Used Drugs (Active) * Being A Social Drinker (Active) Advance Directives * No Advance Directives available. Encounters * AUDIT 10/09/2013
--- OUTSIDE RECORDS SUMMARY | 2020-03-19 13:16 | XMS REPORT | Summary of Care ---
Author Author [facility] Outpatient Imaging - [facility] Organization [facility] Outpatient [facility] - [facility] Address Unknown Phone Unavailable Encounter HQ Encntr_[id number](FIN) [id number] Date(s): 11/28/18 - 11/28/18 [facility] Outpatient Imaging - [address] [phone] Discharge Disposition: Home or Self Care Attending [...]
--- OUTSIDE RECORDS SUMMARY | 2020-03-19 13:17 | XMS REPORT | Summary of Care ---
Author Author RACHAEL Gaviria Organization Unknown Address Unknown Phone Unavailable Care Team Providers Care Surveying Crew Rodman Name Role Phone JOSÉ LUIS Castellanos, ELMIRA Unavailable Unavailable Amanda Gaviria Unavailable Unavailable JOSÉ LUIS SHELTON [place], ELMIRA VELASCO Unavailable Unavailable ALISSA SHELTON, LUIS ANTONIO Vu Unavailable Unavailable LEIGH SHELTON [place], FAITH Alvarado Unavailable Unavailable ASHA BLOW OFF WORKER-C, ANGELO Maza Unavailable Unavailable JASMYNE SHELTON, SANJUANA Unavailable Unavailable Unavailable Unavailable Functional Status Name Dates Details Functional status health issues are not documented Status: Name Dates Details Cognitive status health issues are not d ocumented Status: Problems Name Dates Details Tinea cruris (110.3, B35.6) Status: Active Influenza vaccine needed (V04.81, Z23) Status: Active Skin irritation (709.9, R23.8) Status: Active Cutaneous candidiasis (112.3, B37.2) Status: Active Thumb paresthesia, left (782.0, R20.2) Status: Active Need for Zostavax administration (V04.89 , Z23) Status: Active Deficit of flexor tendon (727.89, M67.90 ) Status: Active Injury of flexor tendon of hand (959.4, S66.809A) Status: Active Left hand paresthesia (782.0, R20.2) Status: Active Esophageal reflux (530.81, K21.9) Status: Active Encounter for long-term (current) use of medications (V58.69, Z79.899) Status: Active Plantar fasciitis (728.71, M72.2) Status: Active Screening for colon cancer (V76.51, Z12. 11) Status: Active Need for lxdjpkqhlo-krpimpv-nvhsxmdyp (T dap) vaccine (V06.1, Z23) Status: Active Injury of left thumb (959.5, S69.92XA) Status: Active Chronic allergic rhinitis (477.9, J30.9) Status: Active RAD (reactive airway disease) (493.90, J 45.909) Status: Active History of frequent nasal spray use (Z87 .898) Status: Active Acute tracheobronchitis (466.0, J20.9) Status: Active Left knee pain (719.46, M25.562) Status: Active Acute UTI (599.0, N39.0) Status: Active Influenza vaccination declined by patien t (V64.06, Z28.21) Status: Active Suspected sleep apnea (781.99, R29.818) Status: Active Meralgia paresthetica, bilateral lower l imbs (355.1, G57.13) Status: Active DJD (degenerative joint disease) of knee (715.36, M17.10) Status: Active Need for influenza vaccination (V04.81, Z23) Status: Active On statin therapy (V58.69, Z79.899) Status: Active Pruritic erythematous rash (698.8, L29.8 ) Status: Active Abnormal bone xray (793.7, R93.7) Status: Active H/O mixed hyperlipidemia (V12.29, Z86.39 ) Status: Resolved Screening for diabetes mellitus (V77.1, Z13.1) Status: Active Screening for hypothyroidism (V77.0, Z13 .29) Status: Active 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 2) Status: Active BOM (bilateral otitis media) (382.9, H66 .93) Status: Active BMI 40.0-44.9, adult (V85.41, Z68.41) Status: Active Hyperlipidemia (272.4, E78.5) Status: Active Follow up (V67.9, Z09) Status: Active Hypertriglyceridemia (272.1, E78.1) Status: Active Need for hepatitis C screening test (V73 .89, Z11.59) Status: Active Postcholecystectomy diarrhea (564.4, R19 .7) Status: Active Postcholecystectomy diarrhea (564.4, R19 .7) Status: Active Blepharitis of left lower eyelid, unspec ified type (373.00, H01.005) Status: Active Encounter for monitoring statin therapy (V58.83, Z51.81) Status: Active Need for 23-polyvalent pneumococcal poly saccharide vaccine (V03.82, Z23) Status: Active Nephropathy screen (V81.5, Z13.89) Status: Active Need for shingles vaccine (V04.89, Z23) Status: Active Encounter for mini-mental status examina tion Status: Active No impairment of memory (V49.89, Z78.9) Status: Active Heart murmur (785.2, R01.1) Status: Active Depression screen (V79.0, Z13.31) Status: Active At low risk for fall (V49.89, Z91.81) Status: Active Essential (primary) hypertension (401.9, I10) Status: Active Mixed hyperlipidemia (272.2, E78.2) Status: Active Sigmoid diverticulosis (562.10, K57.30) Status: Active Low serum HDL (272.9, R74.8) Status: Active On potassium wasting diuretic therapy (V 58.69, Z79.899) Status: Active Abnormal mammogram of left breast (793.8 0, R92.8) Status: Active Personal history of colonic polyps (V12. 72, Z86.010) Status: Active Breast cancer screening (V76.10, Z12.39) Status: Active Colon cancer screening (V76.51, Z12.11) Status: Active Encounter for osteoporosis screening in asymptomatic postmenopausal patient (V82.81, Z13.820) Status: Active Class 3 severe obesity due to excess malbe ories without serious comorbidity with body mass index (BMI) of 40.0 to 44.9 in adult (278.01, E66.01) Status: Active History of Prediabetes (790.29, R73.03) Status: Resolved At risk for coronary artery disease (V49 .89, Z91.89) Status: Active Dense breast tissue on mammogram (793.89 , R92.2) Status: Active Left breast mass (611.72, N63.20) Status: Active Screening for osteoporosis (V82.81, Z13. 820) Status: Active Postmenopausal (V49.81, Z78.0) Status: Active Medications Name Dates Details Losartan Potassium-HCTZ 100-25 MG Oral T ablet TAKE 1 TABLET BY MOUTH DAILY Quantity: 90 JOSÉ LUIS Castellanos, ELMIRA * Start : 09-Oct-2013 Active Rosuvastatin Calcium 10 MG Oral Tablet Take one tablet daily * Quantity: 90 Refills: 1 JOSÉ LUIS Castellanos, ELMIRA * Start : 23-Feb-2019 Active amLODIPine Besylate 2.5 MG Oral Tablet TAKE 1 TABLET BY MOUTH DAILY AT BEDTIME * Quantity: 90 Refills: 1 JOSÉ LUIS Castellanos, ELMIRA * Start : 06-Oct-2019 Active Cholestyramine 4 GM Oral Packet MIX ONE PACKET AND TAKE BY MOUTH ONCE A DAY IN THE MORNING * Quantity: 30 Refills: 3 JOSÉ LUIS Castellanos, ELMIRA * Start : 06-Oct-2019 Active Shingrix 50 MCG Intramuscular Suspension Reconstituted INJECT 0.5 ML IM, please administer vaccine series per protocol * Quantity: 1 Refills: 0 JOSÉ LUIS Castellanos, ELMIRA * Start : 06-Oct-2019 Active Tyixe-4-wcgz Ethyl Esters 1 GM Oral Capsule TAKE 2 CAPSULES BY MOUTH TWICE A DAY * Quantity: 120 Refills: 3 JOSÉ LUIS Castellanos, ELMIRA * Start : 04-Dec-2019 Active Allergies and Adverse Reactions Name Dates Details No Known Drug Allergies (Allergy) Status : Active Past Medical History Name Dates Details Influenza vaccine needed (V04.81, Z23) Status: Active H/O mixed hyperlipidemia (V12.29, Z86.39 ) Status: Resolved History of esophageal reflux (V12.79, Z8 7.19) Status: Resolved History of essential hypertension (V12.5 9, Z86.79) Status: Resolved History of hyperlipidemia (V12.29, Z86.3 9) Status: Resolved History of Polyp of sigmoid colon (211.3 , K63.5) Status: Resolved History of Prediabetes (790.29, R73.03) Status: Resolved Procedures Procedure Dates Details [Q] LIPID PANEL WITH REFLEX TO DIRECT LDL Date: 05-Dec-2019 MA Digital Mammo DX [place] G0204 Date: 05-Dec-2019 [place] [address] Date: 05-Dec-2019 MA Bone Density DXA Dual Energy 54130 Date: 05-Dec-2019 History of Hysterectomy Completed History of Oophorectomy - Bilat (Removal Of Both Ovaries) La paroscopic Completed History of Cholecystectomy Completed History of Wrist Surgery Completed History of Knee Surgery Completed Immunization Name Dates Details Influenza on: 10-Jun-2011 Hepatitis A on: 19-Nov-2011 Fluzone INJ Lot #: [id number] on: 26-May-2013 Zoster (Zostavax) Lot #: [id number] on: 04-Dec-2014 Tdap Lot #: [id number] on: 07-Jan-2015 Fluzone Quadrivalent 0.5 ML Intramuscula r Suspension Lot #: [id number] on: 01-Jun-2017 Influenza on: 09-Jun-2019 Pneumococcal polysaccharide vaccine, 23 valent Lot #: [id number] on: 06-Oct-2019 Family History Name Dates Details Family history of Hypertension (V17.49) Status: Active Name Dates Details Family history of Cirrhosis Status: Active Family history of Alcoholism Status: Active Social History Name Dates Details - Status: Name Dates Details Never smoked tobacco (finding) Vital Signs Date Test Result Details No Known Vitals to report Results Date Description Value Details Results not documented Plan of Care Name Dates Details Planned Observations Planned Goals not documented Planned Encounters Gastroenterology Referral Appointment; MARI KOVACS M.D. On: 21-Dec-2019 13:30 Appointment; ELMIRA ORDONEZ M.D. On: 19-Jan-2020 9:00 Interventions Provided Follow-ups/Referrals* Cardiology Referral; To Be Done: 05 Dec 2019 Instructions Name Dates Details Instructions not documented Encounters Appointment; SANJUANA MEDLEY M.D. Encounter Diagnosis: Problem not documented On: 11-Jan-2018 13:15 Appointment; ELMIRA ORDONEZ M.D. Encounter Diagnosis: Problem not documented On: 08-Aug-2018 9:30 Appointment; LIGIA MCGARRY P.A. Encounter Diagnosis: Problem not documented On: 02-Nov-2018 10:30 Appointment; DAVIDE ANSARI APRN Encounter Diagnosis: Problem not documented On: 10-Feb-2019 14:30 Appointment; ANGELO BARRY APRN Encounter Diagnosis: Problem not documented On: 12-May-2019 13:30 Appointment; ANGELO BARRY APRN Encounter Diagnosis: Problem not documented On: 19-May-2019 10:30 Appointment; DAVIDE ANSARI APRN Encounter Diagnosis: Problem not documented On: 29-May-2019 8:45 Appointment; ESTEPHANIE WAGNER M.D. Encounter Diagnosis: Problem not documented On: 29-Jun-2019 9:00 Appointment; ELMIRA ORDONEZ M.D. Encounter Diagnosis: Problem not documented On: 06-Oct-2019 14:15 Appointment; GORGE, MILLIE Encounter Diagnosis: Problem not documented On: 25-Oct-2019 13:00 Appointment; ELMIRA ORDONEZ M.D. Encounter Diagnosis: Problem not documented On: 04-Dec-2019 15:45
--- OUTSIDE RECORDS SUMMARY | 2020-03-19 13:17 | XMS REPORT | Summary of Care ---
Author Author RACHAEL Hernandez Organization Unknown Address [facility] Phone Unavailable Care Team Providers Care Director Of Strategic Programs Name Role Phone ANGELO BARRY APRN Unavailable Unavailable JOSÉ LUIS Castellanos, ELMIRA Unavailable Unavailable Alva Hernandez Unavailable Unavailable ELAN WARNER, DAVIDE Unavailable Unavailable JOSÉ LUIS SHELTON [place], ELMIRA VELASCO Unavailable Unavailable ALISSA SHELTON, LUIS ANTONIO Vu Unavailable Unavailable LEIGH SHELTON [place], FAITH Alvarado Unavailable Unavailable ASHA MIXER MACHINE FEEDER-C, ANGELO Maza Unavailable Unavailable JASMYNE SHELTON, SANJUANA [...] (V76.51, Z12. 11) Status: Active Need for cfwdlmgycz-bouqwhu-fdvzqysna (T dap) vaccine (V06.1, Z23) Status: Active [...] mixed hyperlipidemia (V12.29, Z86.39 ) Status: Resolved Breast cancer screening (V76.10, Z12.39) Status: Active Screening for diabetes mellitus (V77.1, Z13.1) Status: Active Screening for hypothyroidism (V77.0, Z13 .29) Status: Active Prediabetes (790.29, R73.03) Status: Active Low serum HDL (272.9, R74.8) Status: Active On potassium wasting diuretic therapy (V 58.69, Z79.899) Status: Active Ulcer of right cornea (370.00, [...] Status: Active Hypertriglyceridemia (272.1, E78.1) Status: Active Mixed hyperlipidemia (272.2, E78.2) Status: Active Need for hepatitis C screening test (V73 .89, Z11.59) Status: Active Need for 23-polyvalent pneumococcal poly saccharide vaccine (V03.82, Z23) Status: Active Essential (primary) hypertension (401.9, I10) Status: Active Postcholecystectomy diarrhea (564.4, R19 .7) Status: Active Class 3 severe obesity due to excess mable ories with body mass index (BMI) of 40.0 to 44.9 in adult (278.01, E66.01) Status: Active Encounter for monitoring statin therapy (V58.83, Z51.81) Status: Active Nephropathy screen (V81.5, Z13.89) Status: Active Heart murmur (785.2, R01.1) Status: Active Need for shingles vaccine (V04.89, Z23) Status: Active Postcholecystectomy diarrhea (564.4, R19 .7) Status: Active Blepharitis of left lower eyelid, unspec ified type (373.00, H01.005) Status: Active At low risk for fall (V49.89, Z91.81) Status: Active Depression screen (V79.0, Z13.31) Status: Active No impairment of memory (V49.89, Z78.9) Status: Active Encounter for mini-mental status examina tion Status: Active Medications Name Dates Details Losartan Potassium-HCTZ 100-25 MG Oral T ablet TAKE 1 TABLET BY MOUTH DAILY Quantity: 30 ELMIRA ORDONEZ M.D. * Start : 09-Oct-2013 Active Rosuvastatin Calcium 10 MG Oral Tablet TAKE 1 TABLET BY MOUTH AT BEDTIME * Quantity: 90 Refills: 0 DAVIDE ANSARI APRN * Start : 23-Feb-2019 Active Fluticasone Propionate 50 MCG/ACT Nasal Suspension USE 2 SPRAYS IN EACH NOSTRIL TWICE DAILY. * Quantity: 1 Refills: 0 ANGELO BARRY APRN * Start : 19-May-2019 Active 16 GM Bottle amLODIPine Besylate 2.5 MG Oral Tablet TAKE 1 TABLET BY MOUTH DAILY AT BEDTIME * Quantity: 30 Refills: 3 JOSÉ LUIS [...] Castellanos, ELMIRA * Start : 06-Oct-2019 Active Allergies and Adverse Reactions Name Dates [...] sigmoid colon (211.3 , K63.5) Status: Resolved Procedures Procedure Dates Details [QLH] CMP W/EGFR Date: 06-Oct-2019 [QLH] TSH, 3RD GENERATION W/REFLEX TO FT4 Date: 06-Oct-2019 [QH] PROTEIN, TOTAL W/CREAT, RANDOM URINE Date: 06-Oct-2019 [QLH] HEPATITIS C ANTIBODY Date: 06-Oct-2019 [QH] LIPID PANEL WITH REFLEX TO DIRECT LDL Date: 06-Oct-2019 [N] 2D Echo complete, with Doppler 96300 Date: 06-Oct-2019 History of Hysterectomy Completed History of Oophorectomy - Bilat (Removal Of Both Ovaries) La paroscopic Completed History of Cholecystectomy Completed History of Wrist Surgery Completed History of Knee Surgery Completed Immunization Name Dates Details Influenza on: 10-Jun-2011 Hepatitis A on: 19-Nov-2011 Fluzone INJ Lot #: [id number] on: 26-May-2013 Zoster (Zostavax) Lot #: [id number] on: 04-Dec-2014 Tdap Lot #: [id number] on: 07-Jan-2015 Fluzone Quadrivalent 0.5 ML Intramuscula r Suspension Lot #: [id number] on: 01-Jun-2017 Influenza on: 09-Jun-2019 Pneumococcal polysaccharide vaccine, 23 valent Lot #: [id number] on: 06-Oct-2019 Family History Name Dates Details Family history of Hypertension (V17.49) Status: Active Name Dates Details Family history of Cirrhosis Status: Active Family history of Alcoholism Status: Active Social History Name Dates Details - Status: Name Dates Details Never smoked tobacco (finding) Vital Signs Date Test Result Details [id number] Systolic blood pressure 132 mm[Hg] Status: Comments : Location: LUE; Position: Sitting Diastolic blood pressure 84 mm[Hg] Status: Comment s: Location: LUE; Position: Sitting [id number] Systolic blood pressure 145 mm[Hg] Status: Comments : Location: LUE; Position: Sitting Diastolic blood pressure 79 mm[Hg] Status: Comment s: Location: LUE; Position: Sitting Body height 61 in Status: Weight 217.9 lb Status: Body mass index (BMI) [Ratio] 41.17 kg/m2 Status: Body surface area Derived from formula 1.96 m2 S tatus: Body temperature 97.1 f Status: Comments: Me thod: Temporal Heart Rate 74 /min Status: Comments: Lo cation: L Radial; Respiratory rate 16 /min Status: Comments: Qu ality: Normal Physical Findings 0 Status: Comments: Pa in Scale Physical Findings 0 Status: Comments: Al cohol Screen - How many times in the past yr have you had 5 (for M) or 4 (for F) or 4 (for all > 65yrs) or more drinks in a day? Physical Findings 0 Status: Comments: PH Q-9 Adult Depression Screening Results Date Description Value Details Results not documented Plan of Care Name Dates Details Planned Observations Planned Goals not documented Planned Encounters Appointment; MILLIE PENNINGTON On: 25-Oct-2019 13:00 Appointment; ELMIRA ORDONEZ M.D. On: 06-Nov-2019 9:00 Instructions Name Dates Details Instructions not documented [...]
--- OUTSIDE RECORDS SUMMARY | 2020-03-19 13:17 | XMS REPORT | Summary of Care ---
Author Author RACHAEL ORDONEZ M.D. Organization Unknown Address Unknown Phone Unavailable Care Team Providers Care Gun Club Manager Name Role Phone JOSÉ LUIS Castellanos, ELMIRA Unavailable Unavailable JOSÉ LUIS SHELTON [place], ELMIRA VELASCO Unavailable Unavailable LUIS ANTONIO MAXWELL MD Unavailable Unavailable LEIGH SHELTON [place], FAITH Alvarado Unavailable Unavailable ASHA ALONSO-C, ANGELO Maza Unavailable Unavailable JASMYNE SHELTON, SANJUANA [...] (V76.51, Z12. 11) Status: Active Need for pemvipjocy-dxqplrb-vqyzgyply (T dap) vaccine (V06.1, Z23) Status: Active [...] severe obesity due to excess mable ories without serious comorbidity with body mass index (BMI) of 40.0 to 44.9 in adult (278.01, E66.01) Status: Active History of Prediabetes (790.29, R73.03) Status: Resolved Medications Name Dates Details Losartan Potassium-HCTZ 100-25 MG Oral T ablet TAKE 1 TABLET BY MOUTH DAILY Quantity: 90 GOODINE M.D., ELMIRA * Start : 09-Oct-2013 Active Rosuvastatin Calcium 10 MG Oral Tablet Take one tablet daily * Quantity: 90 Refills: 1 ELMIRA ORDONEZ M.D. * Start : 23-Feb-2019 Active amLODIPine Besylate 2.5 MG Oral Tablet TAKE 1 TABLET BY MOUTH DAILY AT BEDTIME * Quantity: 90 Refills: 1 ELMIRA ORDONEZ M.D. * Start : 06-Oct-2019 Active Cholestyramine 4 GM Oral Packet MIX ONE PACKET AND TAKE BY MOUTH ONCE A DAY IN THE MORNING * Quantity: 30 Refills: 3 ELMIRA ORDONEZ M.D. * Start : 06-Oct-2019 Active Shingrix 50 MCG Intramuscular Suspension Reconstituted INJECT 0.5 ML IM, please administer vaccine series per protocol * Quantity: 1 Refills: 0 ELMIRA ORDONEZ M.D. * Start : 06-Oct-2019 Active Ivebu-0-wkqc Ethyl Esters 1 GM Oral Capsule TAKE 2 CAPSULES BY MOUTH TWICE A DAY * Quantity: 120 Refills: 3 ELMIRA ORDONEZ M.D. * Start : 04-Dec-2019 Active Allergies and [...] R73.03) Status: Resolved Procedures Procedure Dates Details History of Hysterectomy Completed History of Oophorectomy - Bilat (Removal Of Both Ovaries) La paroscopic Completed History of Cholecystectomy Completed History of Wrist Surgery Completed History of Knee Surgery Completed Immunization Name Dates Details Influenza on: 10-Jun-2011 Hepatitis A on: 19-Nov-2011 Fluzone INJ Lot #: [id number] on: 26-May-2013 Zoster (Zostavax) Lot #: [id number] on: 04-Dec-2014 Tdap Lot #: [id number] on: 07-Jan-2015 Fluzone Quadrivalent 0.5 ML Intramuscula r Suspension Lot #: [id number] on: 01-Jun-2017 Influenza on: 09-Jun-2019 Pneumococcal polysaccharide vaccine, 23 valent Lot #: [id number] on: 06-Oct-2019 Family History Name Dates Details [...] Planned Goals not documented Planned Encounters Appointment; ELMIRA ORDONEZ M.D. On: 04-Dec-2019 15:45 Interventions Provided Medication Changes* amLODIPine Besylate 2.5 MG Oral Tablet - Renew * Losartan Potassium-HCTZ 100-25 MG Oral Tablet - Renew * Kmytn-3-tspf Ethyl Esters 1 GM Oral Capsule - Start * Rosuvastatin Calcium 10 MG Oral Tablet - Renew Plan* Reviewed and discussed with patient results of lab performed 11/2019 and echocardiogram performed 10/2019 * Mixed hyperlipidemia with elevated LDL, low HDL, markedly elevated triglycerides: * CONTINUE rosuvastatin 10 mg daily. Discussed need for consistency with daily use and strategies for improving compliance. * START Lovaza 1 g 2 capsules twice daily. * Lab 6 weeks after starting Lovaza: Lipid panel. * Hypertension: Continue current antihypertensives without changes as follows * -Losartan - HCTZ 100-25 mg daily * -Amlodipine 2.5 mg daily. * -Continue to self monitor BP daily * Class III obesity with BMI 41: Diet and exercise counseling * Colon cancer screening and polyp surveillance in patient with history of multiple colonic polyps: Referral to gastroenterology, Dr. Pipo Sanchez. * Breast cancer screening: Follow-up studies at [facility] * Bilateral diagnostic mammogram. * Bilateral breast ultrasound. * Diagnoses: Heterogeneously dense breast tissue. Abnormal mammogram left breast. Left breast mass * Cardiology referral to establish care and for cardiac evaluation: * Diagnosis for referral: * -Risk factors for coronary artery disease: * -Mixed hyperlipidemia with low HDL syndrome, elevated LDL and elevated triglycerides. * -Hypertension. * -History of prediabetes * -Morbid obesity. BMI of 41 * Postmenopausal osteoporosis screening: Order DEXA scan ([facility]) * Lab requisition to be mailed to patient's home: Lipid panel to be performed in 6 weeks * Schedule patient office visit for 8 weeks. Instructions Name Dates Details Instructions not documented [...] Problem not documented On: 06-Oct-2019 14:15 Appointment; MILLIE PENNINGTON Encounter Diagnosis: Problem not documented On: 25-Oct-2019 13:00 Appointment; ELMIRA ORDONEZ M.D. Encounter Diagnosis: Problem not documented On: 04-Dec-2019 15:45
--- OUTSIDE RECORDS SUMMARY | 2020-03-19 13:17 | XMS REPORT | Summary of Care ---
Author Author JOSÉ LUIS Castellanos, RACHAEL Balderas Organization Unknown Address Unknown Phone Unavailable Care Team Providers Care Yarder Name Role Phone ANGELO BARRY APRN Unavailable Unavailable JOSÉ LUIS Castellanos, ELMIRA Unavailable Unavailable DAVIDE ANSARI APRN Unavailable Unavailable JOSÉ LUIS SHELTON ID, ELMIRA VELASCO Unavailable Unavailable ALISSA SHELTON, LUIS ANTONIO Vu Unavailable Unavailable LEIGH SHELTON ID, FAITH Alvarado Unavailable Unavailable ASHA YEAST TENDER-C, ANGELO Maza Unavailable Unavailable JASMYNE SHELTON, SANJUANA [...] (V76.51, Z12. 11) Status: Active Need for fxyusmlkbz-fjndned-wvqgowtgx (T dap) vaccine (V06.1, Z23) Status: Active [...] Active Mixed hyperlipidemia (272.2, E78.2) Status: Active On potassium wasting diuretic therapy (V 58.69, Z79.899) Status: Active Low serum HDL (272.9, R74.8) Status: Active Breast cancer screening (V76.10, Z12.39) Status: Active Colon cancer screening (V76.51, Z12.11) Status: Active Encounter for osteoporosis screening in asymptomatic postmenopausal patient (V82.81, Z13.820) Status: Active Prediabetes (790.29, R73.03) Status: Active Class 3 severe obesity due to excess mable ories without serious comorbidity with body mass index (BMI) of 40.0 to 44.9 in adult (278.01, E66.01) Status: Active Medications Name Dates Details Losartan Potassium-HCTZ 100-25 MG Oral T ablet TAKE 1 TABLET BY MOUTH DAILY Quantity: 30 GOODINE M.KRISTINA KimballA * Start : 09-Oct-2013 Active Rosuvastatin Calcium 10 MG Oral Tablet TAKE 1 TABLET BY MOUTH AT BEDTIME * Quantity: 90 Refills: 0 ELAN NUCLEAR MEDICINE OFFICER, DAVIDE * Start : 23-Feb-2019 Active Fluticasone Propionate 50 MCG/ACT Nasal Suspension USE 2 SPRAYS IN EACH NOSTRIL TWICE DAILY. * Quantity: 1 Refills: 0 ANGELO BARRY APRN * Start : 19-May-2019 Active 16 GM Bottle amLODIPine Besylate 2.5 MG Oral Tablet TAKE 1 TABLET BY MOUTH DAILY AT BEDTIME * Quantity: 30 Refills: 3 GOODINE M.D., ELMIRA * Start : 06-Oct-2019 Active Cholestyramine 4 GM Oral Packet MIX ONE PACKET AND TAKE BY MOUTH ONCE A DAY IN THE MORNING * Quantity: 30 Refills: 3 GOODINE M.D., ELMIRA * Start : 06-Oct-2019 Active Shingrix 50 MCG Intramuscular Suspension Reconstituted INJECT 0.5 ML IM, please administer vaccine series per protocol * Quantity: 1 Refills: 0 GOODINE M.D., ELMIRA * Start : 06-Oct-2019 Active Allergies [...] K63.5) Status: Resolved Procedures Procedure Dates Details History of Hysterectomy Completed History of Oophorectomy - Bilat (Removal Of Both Ovaries) La paroscopic Completed History of Cholecystectomy Completed History of Wrist Surgery Completed History of Knee Surgery Completed Immunization Name Dates Details Influenza on: 10-Jun-2011 Hepatitis A on: 19-Nov-2011 Fluzone INJ Lot #: [id number] on: 26-May-2013 Zoster (Zostavax) Lot #: [id number] on: 04-Dec-2014 Tdap Lot #: [id number] on: 07-Jan-2015 Fluzone Quadrivalent 0.5 ML Intramuscula r Suspension Lot #: [id number] on: 01-Jun-2017 Influenza on: 09-Jun-2019 Pneumococcal polysaccharide vaccine, 23 valent Lot #: [id number] on: 06-Oct-2019 Family History Name Dates Details [...] Appointment; ELMIRA ORDONEZ M.D. On: 04-Dec-2019 15:45 Instructions Name Dates Details Instructions not documented [...]
--- OUTSIDE RECORDS SUMMARY | 2020-03-19 13:17 | XMS REPORT | Summary of Care ---
Author RACHAEL Rudolph Organization Unknown Address [facility] Phone Unavailable Care Team Providers Care Beauty Culturist Apprentice Name Role Phone JOSÉ LUIS Castellanos, ELMIRA Unavailable Unavailable JOSÉ LUIS SHELTON [place], ELMIRA VELASCO Unavailable Unavailable ALISSA SHELTON, LUIS ANTONIO Vu Unavailable Unavailable LEIGH SHELTON [place], FAITH Alvarado Unavailable Unavailable ASHA FIBER OPTICS ENGINEER-C, ANGELO Maza Unavailable Unavailable JASMYNE SHELTON, SANJUANA [...] (V76.51, Z12. 11) Status: Active Need for gqkbxfemrr-dgsqhga-hganraagb (T dap) vaccine (V06.1, Z23) Status: Active [...] BY MOUTH DAILY Quantity: 90 JOSÉ LUIS Balderas.Shaunna., ELMIRA * Start : 09-Oct-2013 Active Rosuvastatin Calcium 10 MG Oral Tablet Take one tablet daily * Quantity: 90 Refills: 1 JOSÉ LUIS Balderas.Rehana, ELMIRA * Start : 23-Feb-2019 Active amLODIPine Besylate 2.5 MG Oral Tablet TAKE 1 TABLET BY MOUTH DAILY AT BEDTIME * Quantity: 90 Refills: 1 JOSÉ LUIS Balderas.Rehana, ELMIRA * Start : 06-Oct-2019 Active Cholestyramine 4 GM Oral Packet MIX ONE PACKET AND TAKE BY MOUTH ONCE A DAY IN THE MORNING * Quantity: 30 Refills: 3 JOSÉ LUIS Balderas.Shaunna., ELMIRA * Start : 06-Oct-2019 Active Shingrix 50 MCG Intramuscular Suspension Reconstituted INJECT 0.5 ML IM, please administer vaccine series per protocol * Quantity: 1 Refills: 0 JOSÉ LUIS Balderas.Shaunna., ELMIRA * Start : 06-Oct-2019 Active Extyw-6-mfng Ethyl Esters 1 GM Oral Capsule TAKE 2 CAPSULES BY MOUTH TWICE A DAY * Quantity: 120 Refills: 3 GOODDIRK M.Shaunna., ELMIRA * Start : 04-Dec-2019 Active Allergies [...] G0204 Date: 05-Dec-2019 [place] [address] Date: 05-Dec-2019 MA Bone Density DXA Dual Energy 40410 Date: 05-Dec-2019 History of Hysterectomy Completed History of Oophorectomy - Bilat (Removal Of Both Ovaries) La paroscopic Completed History of Cholecystectomy Completed History of Wrist Surgery Completed History of Knee Surgery Completed Immunization Name Dates Details Influenza on: 10-Jun-2011 Hepatitis A on: 19-Nov-2011 Fluzone INJ Lot #: [id number] on: 26-May-2013 Zoster (Zostavax) Lot #: [id number] on: 04-Dec-2014 Tdap Lot #: [id number] on: 07-Jan-2015 Fluzone Quadrivalent 0.5 ML Intramuscula r Suspension Lot #: [id number] on: 01-Jun-2017 Influenza on: 09-Jun-2019 Pneumococcal polysaccharide vaccine, 23 valent Lot #: [id number] on: 06-Oct-2019 Family History Name Dates Details [...] Planned Encounters Appointment; ELMIRA ORDONEZ M.D. On: 19-Jan-2020 9:00 Interventions Provided Follow-ups/Referrals* Cardiology Referral; To Be Done: 05 Dec 2019 * Gastroenterology Referral; To Be Done: 05 Dec 2019 [...]
--- OUTSIDE RECORDS SUMMARY | 2020-03-19 13:17 | XMS REPORT | Summary of Care ---
Author Author RACHAEL Gan R.N. Organization Unknown Address Unknown Phone Unavailable Care Team Providers Care Shank Archer Name Role Phone ASHA WARNER, ANGELO Unavailable Unavailable JOSÉ LUIS Castellanos, ELMIRA Unavailable Unavailable [facility] LIGIA Unavailable Unavailable ELAN WARNER, DAVIDE Unavailable Unavailable JOSÉ LUIS SHELTON [place], ELMIRA VELASCO Unavailable Unavailable JASMYNE SHELTON, SANJUANA Unavailable Unavailable ALISSA SHELTON, LUIS ANTONIO Vu Unavailable Unavailable LEIGH SHELTON [place], FAITH Alvarado Unavailable Unavailable ASHA VETERINARIAN EPIDEMIOLOGIST-C, ANGELO D Unavailable Unavailable Unavailable Unavailable Functional Status Name [...] (V76.51, Z12. 11) Status: Active Need for avyxamqiut-iwaxpsw-xsoegilda (T dap) vaccine (V06.1, Z23) Status: Active [...] lower l imbs (355.1, G57.13) Status: Active Morbid obesity with BMI of 40.0-44.9, ad ult (278.01, E66.01) Status: Active DJD (degenerative joint disease) of [...] BMI 40.0-44.9, adult (V85.41, Z68.41) Status: Active Essential (primary) hypertension (401.9, I10) Status: Active Hyperlipidemia (272.4, E78.5) Status: Active Follow up (V67.9, Z09) Status: Active Hypertriglyceridemia (272.1, E78.1) Status: Active Mixed hyperlipidemia (272.2, E78.2) Status: Active Need for hepatitis C screening test (V73 .89, Z11.59) Status: Active Medications Name Dates Details Losartan Potassium-HCTZ 100-25 MG Oral T ablet TAKE 1 TABLET BY MOUTH DAILY Quantity: 30 ELMIRA ORDONEZ M.D. * Start : 09-Oct-2013 Active Exkkvjgb-Xrwjgfqvk-TV 3.5-85952-3 Ophthalmic Suspension * Refills: 0 LIGIA LAND * Start : 02-Nov-2018 Active 7.5 ML Bottle Rosuvastatin Calcium 10 MG Oral Tablet TAKE 1 TABLET BY MOUTH AT BEDTIME * Quantity: 90 Refills: 0 DAVIDE ANSARI APRN * Start : 23-Feb-2019 Active Metoprolol Succinate ER 25 MG Oral Tablet Extended Release 24 Hour TAKE 1 TABLET DAILY. * Quantity: 30 Refills: 3 ANGELO BARRY APRN * Start : 19-May-2019 Active Ciprodex 0.3-0.1 % Otic Suspension INSTILL 4 DROPS IN THE AFFECTED EAR(S) TWICE DAILY * Quantity: 1 Refills: 0 ANGELO BARRY APRN * Start : 19-May-2019 Active 7.5 ML Bottle Fluticasone Propionate 50 MCG/ACT Nasal Suspension USE 2 SPRAYS IN EACH NOSTRIL TWICE DAILY. * Quantity: 1 Refills: 0 ANGELO BARRY APRN * Start : 19-May-2019 Active 16 GM Bottle Iqiau-6-bjuk Ethyl Esters 1 GM Oral Capsule TAKE 2 CAPSULE TWICE DAILY. * Quantity: 360 Refills: 1 DAVIDE ANSARI APRN * Start : 30-May-2019 Active Allergies and Adverse Reactions Name Dates [...] A on: 19-Nov-2011 Fluzone INJ Lot #: [id number] on: 26-May-2013 Zoster (Zostavax) Lot #: [id number] on: 04-Dec-2014 Tdap Lot #: [id number] on: 07-Jan-2015 Fluzone Quadrivalent 0.5 ML Intramuscula r Suspension Lot #: [id number] on: 01-Jun-2017 Family History Name Dates Details Family history [...] Planned Encounters Appointment; ELMIRA ORDONEZ M.D. On: 06-Oct-2019 14:15 Instructions Name Dates Details Instructions not documented [...]
--- OUTSIDE RECORDS SUMMARY | 2020-03-19 13:17 | XMS REPORT | Summary of Care ---
Author Author RACHAEL Palomo Organization Unknown Address Unknown Phone Unavailable Care Team Providers Care Air Chipper Name Role Phone ASHA WARNER, ANGELO Unavailable Unavailable JOSÉ LUIS Castellanos, ELMIRA Unavailable Unavailable [facility] [place] ECHO Unavailable Unavailable ELAN WARNER, DAVIDE Unavailable Unavailable JOSÉ LUIS SHELTON [place], ELMIRA VELASCO Unavailable Unavailable ALISSA SHELTON, LUIS ANTONIO Vu Unavailable Unavailable LEIGH SHELTON [place], FAITH Alvarado Unavailable Unavailable ASHA PUDDLER PILE DRIVING-C, ANGELO Maza Unavailable Unavailable JASMYNE SHELTON, SANJUANA [...] (V76.51, Z12. 11) Status: Active Need for vxtlohtsqf-vdsudir-gvdpxijal (T dap) vaccine (V06.1, Z23) Status: Active [...] screening test (V73 .89, Z11.59) Status: Active Essential (primary) hypertension (401.9, I10) [...] Active Heart murmur (785.2, R01.1) Status: Active Mixed hyperlipidemia (272.2, E78.2) Status: Active Depression screen (V79.0, Z13.31) Status: Active At low risk for fall (V49.89, Z91.81) Status: Active Class 3 severe obesity due to excess mable ories with body mass index (BMI) of 40.0 to 44.9 in adult (278.01, E66.01) Status: Active Medications Name Dates Details Losartan Potassium-HCTZ 100-25 MG Oral T ablet TAKE 1 TABLET BY MOUTH DAILY Quantity: 30 GOODINE ELMIRA Castellanos * Start : 09-Oct-2013 Active Rosuvastatin Calcium [...] AT BEDTIME * Quantity: 30 Refills: 3 ESTER ORDONEZ M.D.NDA * Start : 06-Oct-2019 Active Cholestyramine 4 GM Oral Packet MIX ONE PACKET AND TAKE BY MOUTH ONCE A DAY IN THE MORNING * Quantity: 30 Refills: 3 ESTER ORDONEZ M.D.NDA * Start : 06-Oct-2019 Active Shingrix 50 [...] WITH REFLEX TO DIRECT LDL Date: 06-Oct-2019 History of Hysterectomy Completed History of Oophorectomy - Bilat (Removal Of Both Ovaries) La paroscopic Completed History of Cholecystectomy Completed History of Wrist Surgery Completed History of Knee Surgery Completed Immunization Name Dates Details Influenza on: 10-Jun-2011 Hepatitis A on: 19-Nov-2011 Fluzone INJ Lot #: [id number] on: 26-May-2013 Zoster (Zostavax) Lot #: [id number] on: 04-Dec-2014 Tdap Lot #: [id number] on: 07-Jan-2015 Fluzone Quadrivalent 0.5 ML Intramuscula r Suspension Lot #: [id number] on: 01-Jun-2017 Influenza on: 09-Jun-2019 Pneumococcal polysaccharide vaccine, 23 valent Lot #: [id number] on: 06-Oct-2019 Family History Name Dates Details Family history of Hypertension (V17.49) Status: Active Name Dates Details Family history of Cirrhosis Status: Active Family history of Alcoholism Status: Active Social History Name Dates Details - Status: Name Dates Details Never smoked tobacco (finding) Vital Signs Date Test Result Details [id number] Systolic blood pressure 132 mm[Hg] Status: Comments : Location: LUE; Position: Sitting Diastolic blood pressure 84 mm[Hg] Status: Comment s: Location: LUE; Position: Sitting :39 Systolic blood pressure 145 mm[Hg] Status: Comments [...] Planned Encounters Appointment; ELMIRA ORDONEZ M.D. On: 06-Nov-2019 9:00 [...]
--- OUTSIDE RECORDS SUMMARY | 2020-03-19 13:17 | XMS REPORT | Summary of Care ---
Author Author RACHAEL Gan R.N. Organization Unknown Address Unknown Phone Unavailable Care Team Providers Care Rn Psych Name Role Phone ASHA WARNER, ANGELO Unavailable Unavailable JOSÉ LUIS Castellanos, ELMIRA Unavailable Unavailable ELAN WARNER, DAVIDE Unavailable Unavailable JOSÉ LUIS SHELTON [place], ELMIRA VELASCO Unavailable Unavailable JASMYNE SHELTON, SANJUANA Unavailable Unavailable ALISSA SHELTON, LUIS ANTONIO Vu Unavailable Unavailable LEIGH SHELTON [place], FAITH Alvarado Unavailable Unavailable ASHA TEST FIXTURE DESIGNER-C, ANGELO Maza Unavailable Unavailable Unavailable Unavailable Functional Status Name [...] (V76.51, Z12. 11) Status: Active Need for efcajshoci-uhnkotk-dvouzcweu (T dap) vaccine (V06.1, Z23) Status: Active [...] N39.0) Status: Active Influenza vaccination declined by patiafsaneh t (V64.06, Z28.21) Status: Active Suspected sleep [...] screening test (V73 .89, Z11.59) Status: Active Class 3 severe obesity due to excess mable ories with body mass index (BMI) of 40.0 to 44.9 in adult (278.01, E66.01) Status: Active Need for 23-polyvalent pneumococcal poly saccharide vaccine (V03.82, Z23) Status: Active Medications Name Dates Details Losartan [...] MG Oral Tablet Extended Release 24 Hour take 1 tablet prn * Refills: 3 ANGELO BARRY APRN * Start : 19-May-2019 Active Fluticasone Propionate 50 MCG/ACT Nasal Suspension USE 2 SPRAYS IN EACH NOSTRIL TWICE DAILY. * Quantity: 1 Refills: 0 ANGELO BARRY APRN * Start : 19-May-2019 Active 16 GM Bottle Allergies and Adverse Reactions Name Dates Details [...] A on: 19-Nov-2011 Fluzone INJ Lot #: [id number] on: 26-May-2013 Zoster (Zostavax) Lot #: [id number] on: 04-Dec-2014 Tdap Lot #: [id number] on: 07-Jan-2015 Fluzone Quadrivalent 0.5 ML Intramuscula r Suspension Lot #: [id number] on: 01-Jun-2017 Influenza on: 09-Jun-2019 Family History Name Dates Details Family history of Hypertension (V17.49) Status: Active Name Dates Details Family history of Cirrhosis Status: Active Family history of Alcoholism Status: Active Social History Name Dates Details - Status: Name Dates Details Never smoked tobacco (finding) Vital Signs Date Test Result Details :47 Systolic blood pressure 132 mm[Hg] Status: Comments [...] Details Planned Observations Planned Goals not documented Interventions Provided Labs/Procedures/Imaging* Tobacco Use Screening; Done: 06 Oct 2019 Instructions Name Dates Details Instructions not [...] not documented On: 19-May-2019 10:30 Appointment; DAVIDE NASARI APRN Encounter Diagnosis: Problem not documented On: 29-May-2019 8:45 Appointment; ESTEPHANIE WAGNER M.D. Encounter Diagnosis: Problem not documented On: 29-Jun-2019 9:00 Appointment; ELMIRA ORDONEZ M.D. Encounter Diagnosis: Problem not documented On: 06-Oct-2019 14:15
--- OUTSIDE RECORDS SUMMARY | 2020-03-19 13:17 | XMS REPORT | Summary of Care ---
Author Author RACHAEL Gan R.N. Organization Unknown Address Unknown Phone Unavailable Care Team Providers Care Electrical Subcontractor Name Role Phone ANGELO BARRY APRN Unavailable Unavailable JOSÉ LUIS Castellanos, ELMIRA Unavailable Unavailable DAVIDE ANSARI APRN Unavailable Unavailable JOSÉ LUIS SHELTON [place], ELMIRA VELASCO Unavailable Unavailable ALISSA SHELTON, LUIS ANTONIO Vu Unavailable Unavailable LEIGH SHELTON [place], FAITH Alvarado Unavailable Unavailable ASHA ORTHODONTIC TECHNICIAN-C, ANGELO Maza Unavailable Unavailable JASMYNE SHELTON, SANJUANA [...] (V76.51, Z12. 11) Status: Active Need for htjttmerhs-gljotmz-gjlcnrhcl (T dap) vaccine (V06.1, Z23) Status: Active [...] 06-Oct-2019 [N] 2D Echo complete, with Doppler 30615 Date: 06-Oct-2019 History of Hysterectomy Completed History of Oophorectomy - Bilat (Removal Of Both Ovaries) La paroscopic Completed History of Cholecystectomy Completed History of Wrist Surgery Completed History of Knee Surgery Completed Immunization Name Dates Details Influenza on: 10-Jun-2011 Hepatitis A on: 19-Nov-2011 Fluzone INJ Lot #: [id number] on: 26-May-2013 Zoster (Zostavax) Lot #: [id number] on: 04-Dec-2014 Tdap Lot #: [id number] on: 07-Jan-2015 Fluzone Quadrivalent 0.5 ML Intramuscula r Suspension Lot #: [id number] on: 01-Jun-2017 Influenza on: 09-Jun-2019 Pneumococcal polysaccharide vaccine, 23 valent Lot #: [id number] on: 06-Oct-2019 Family History Name Dates Details Family history of Hypertension (V17.49) Status: Active Name Dates Details Family history of Cirrhosis Status: Active Family history of Alcoholism Status: Active Social History Name Dates Details - Status: Name Dates Details Never smoked tobacco (finding) Vital Signs Date Test Result Details [id number] Systolic blood pressure 132 mm[Hg] Status: Comments : Location: LUE; Position: Sitting Diastolic blood pressure 84 mm[Hg] Status: Comment s: Location: LUE; Position: Sitting [id number] Systolic blood pressure 145 mm[Hg] Status: Comments [...] of Care Name Dates Details Planned Observations [N] 2D Echo complete, with Doppler [id number] On: 06-Oct-19 20 Intent Planned Goals not documented Planned Encounters Ophthalmology Referral Appointment; ELMIRA ORDONEZ M.D. On: 06-Nov-2019 9:00 Interventions Provided Medication Changes* amLODIPine Besylate 2.5 MG Oral Tablet - Start * Cholestyramine 4 GM Oral Packet - Start * Shingrix 50 MCG Intramuscular Suspension Reconstituted - Start Labs/Procedures/Imaging* [QH] LIPID PANEL WITH REFLEX TO DIRECT LDL; To Be Done: 06 Oct 2019 * [QH] PROTEIN, TOTAL W/CREAT, RANDOM URINE; To Be Done: 06 Oct 2019 * [QLH] CMP W/EGFR; To Be Done: 06 Oct 2019 * [QLH] HEPATITIS C ANTIBODY; To Be Done: 06 Oct 2019 * [QLH] TSH, 3RD GENERATION W/REFLEX TO FT4; To Be Done: 06 Oct 2019 * Tobacco Use Screening; Done: 06 Oct 2019 * Tobacco Use Screening; Done: 06 Oct 2019 Medications/Immunizations Administered* Pneumococcal polysaccharide vaccine, 23 valent; Done: 06 Oct 2019 Plan* Hypertension: * - Continue Instructions Name Dates Details Instructions not documented [...]
--- OUTSIDE RECORDS SUMMARY | 2020-03-19 13:17 | XMS REPORT | Summary of Care ---
Author Author RACHAEL Gan R.N. Organization Unknown Address Unknown Phone Unavailable Care Team Providers Care Clay Press Operator Name Role Phone JOSÉ LUIS Castellanos, ELMIRA Unavailable Unavailable Rosa Gan R.N. Unavailable Unavailable JOSÉ LUIS SHELTON [place], ELMIRA VELASCO Unavailable Unavailable ALISSA SHELTON, LUIS ANTONIO Vu Unavailable Unavailable LEIGH SHELTON [place], FAITH Alvarado Unavailable Unavailable ASHA ALONSO-Jazz, ANGELO Maza Unavailable Unavailable JASMYNE SHELTON, SANJUANA [...] (V76.51, Z12. 11) Status: Active Need for ivllvhsxjh-wmpdncr-eptlnvozv (T dap) vaccine (V06.1, Z23) Status: Active [...] 1 TABLET BY MOUTH DAILY Quantity: 90 ESETR ORDONEZ M.D.NDA * Start : 09-Oct-2013 Active Rosuvastatin Calcium 10 MG Oral Tablet Take one tablet daily * Quantity: 90 Refills: 1 ESTER ORDONEZ M.D.NDA * Start : 23-Feb-2019 Active amLODIPine Besylate [...] per protocol * Quantity: 1 Refills: 0 ESTER ORDONEZ M.D.NDA * Start : 06-Oct-2019 Active Katdt-2-ahqo Ethyl Esters 1 GM Oral Capsule TAKE [...] G0204 Date: 05-Dec-2019 [place] [address] Date: 05-Dec-2019 [place] Bone Density DXA Dual Energy 15027 Date: 05-Dec-2019 History of Hysterectomy Completed History of Oophorectomy - Bilat (Removal Of Both Ovaries) La paroscopic Completed History of Cholecystectomy Completed History of Wrist Surgery Completed History of Knee Surgery Completed Immunization Name Dates Details Influenza on: 10-Jun-2011 Hepatitis A on: 19-Nov-2011 Fluzone INJ Lot #: [id number] on: 26-May-2013 Zoster (Zostavax) Lot #: [id number] on: 04-Dec-2014 Tdap Lot #: [id number] on: 07-Jan-2015 Fluzone Quadrivalent 0.5 ML Intramuscula r Suspension Lot #: [id number] on: 01-Jun-2017 Influenza on: 09-Jun-2019 Pneumococcal polysaccharide vaccine, 23 valent Lot #: [id number] on: 06-Oct-2019 Family History Name Dates Details [...] of Care Name Dates Details Planned Observations [Q] LIPID PANEL WITH REFLEX TO DIRECT LDL On: 15-Jan-20 20 Intent Planned Goals not documented Planned Encounters Gastroenterology Referral Cardiology Referral Interventions Provided Labs/Procedures/Imaging* MA Bone Density DXA Dual Energy 66088; To Be Done: 05 Dec 2019 * MA Digital Mammo DX Leonid G0204; To Be Done: 05 Dec 2019 * [place] [address]; To Be Done: 05 Dec 2019 Instructions [...] not documented On: 12-May-2019 13:30 Appointment; ANGELO BARYR APRN Encounter Diagnosis: Problem not documented On: [...]
--- OUTSIDE RECORDS SUMMARY | 2020-03-19 13:17 | XMS REPORT | Continuity of Care Document ---
Author Author [facility] t Organization [facility] Address 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 Attphys Unavailable BESSIE PÉREZ M.D. Attphys Unavailemma TIJERINALINDA-, ECHO Attphys Unavailable ESTEPHANIE WAGNER M.D. Attphys Unavailable DAVIDE ANSARI APRN Attphys Unavailable ANGELO BARRY APRN Attphys Unavailable Emma MCLEAN Attphys Unavailable LIGIA MCGARRY P.A. Attphys Unavailable ANKUR FRANKLIN Attphys Unavailable SANJUANA MEDLEY M.D. Attphys Unavailable Clinton Lay Attphys Payers Payer Name Policy Type Policy Number Effective Date Expiration Date S rachel MEDICARE ADVANTAGE GENERIC [id number] 2019 00:00:00 Aar Medicare Complete [id number] I [facility] Hmo [id number] 2017 00:00:00 C HI [facility] Problems Condition Name Condition Details Condition Category Status Onset Date Resolution Date Last Treatment Date Treating Clinician Comments Source M25.562 - PAIN IN LEFT KNEE M17.9 - "OST M25.562 - PAIN IN LEFT KNEE M17.9 - "OST Active 12/19/2015 Charito Rosas Diagnosis Active 2015-12-19 00:01:00 2015-12-23 07:51:00 Sherrie Rosas 719.44 - JOINT PAIN-HAND 719. 44 - JOINT PAIN-HAND Active 02/07/2015 PILO Rosas Diagnosis Active 2015-02-07 00:01:00 2015 13:50:00 [facility] UNK UNK Active 01/02/2015 [facility] Active 2015-01-02 00:00:00 2015-04-16 15:36:00 M ozshawnjaime [address] 338 - PAIN NEC 338 - PAIN NEC Active 01/02/2014 OPIShaunna [place] Diagnosis Active 2014-01-02 00:01:00 2014-01-09 16:33:00 [facility] En[facility] for mini-mental status examination Encounter for mini-mental status examination Problem Active [facility] History of hyperlipidemia History of hyperlipidemia Problem Resolved [facility] History of Prediabetes History of Prediabetes Problem Resolved [facility] [place] [facility] History of esophageal reflux History of esophageal reflux Problem Re solved [facility] [place] [facility] History of essential hypertension History of essential hypertens ion Problem Resolved [facility] [place] [facility] History of Polyp of sigmoid colon History of Polyp of sigmoid co cj Problem Resolved [facility] [place] [facility] Tinea cruris Tinea cruris Problem Active [facility] [place] [facility] Influenza vaccine needed Influenza vaccine needed Problem Active [facility] [place] [facility] Skin irritation Skin irritation Problem Active [facility] [place] [facility] Cutaneous candidiasis Cutaneous candidiasis Problem Active [facility] [place] [facility] Left hand paresthesia Left hand paresthesia Problem Active [facility] [place] [facility] Deficit of flexor tendon Deficit of flexor tendon Problem Active [facility] [place] [facility] Injury of flexor tendon of hand Injury of flexor tendon of hand Pro blem Active [facility] jo[facility]ina Phys[facility] Chronic GERD Chronic GERD Problem Active [facility] [place] [facility] On potassium wasting diuretic therapy On potassium wasting d iuretic therapy Problem Active [facility] [place] [facility] Plantar fasciitis Plantar fasciitis Problem Active [facility] [place] [facility] Colon cancer screening Colon cancer screening Problem Active [facility] [place] [facility] Injury of left thumb Injury of left thumb Problem Active [facility] [place] [facility] Chronic allergic rhinitis Chronic allergic rhinitis Problem Active [facility] [place] [facility] RAD (reactive airway disease) RAD (reactive airway disease) Problem Active [facility] [place] [facility] History of frequent nasal spray use History of frequent nasal sp ray use Problem Active [facility] [place] [facility] Acute tracheobronchitis Acute tracheobronchitis Problem Active [facility] [place] [facility] Left knee pain Left knee pain Problem Active [facility] [place] [facility] Acute UTI Acute UTI Problem Active [facility] Influenza vaccination declined by patient Influenza va ccination declined by patient Problem Active [facility] Suspected sleep apnea Suspected sleep apnea Problem Active [facility] Meralgia paresthetica, bilateral lower limbs Meralgia paresthetica, bilateral lower limbs Problem Active [facility] DJD (degenerative joint disease) of knee DJD (degenera tive joint disease) of knee Problem Active [facility] Pruritic erythematous rash Pruritic erythematous rash Problem Active [facility] [place] [facility] Abnormal bone xray Abnormal bone xray Problem Active [facility] [place] [facility] Screening for diabetes mellitus Screening for diabetes mellitus Pro blem Active [facility] Screening for hypothyroidism Screening for hypothyroidism Problem Active [facility] [place] [facility] Ulcer of right cornea Ulcer of right cornea Problem Active [facility] [place] [facility] Blurred vision Blurred vision Problem Active [facility] [place] [facility] Elevated hemoglobin A1c Elevated hemoglobin A1c Problem Active [facility] [place] [facility] Acute recurrent maxillary sinusitis Acute recurrent maxillary si nusitis Problem Active [facility] [place] [facility] Otitis media Otitis media Problem Active [facility] [place] [facility] Allergic rhinitis, seasonal Allergic rhinitis, seasonal Problem Active [facility] BOM (bilateral otitis media) BOM (bilateral otitis media) Problem Active [facility] BMI 40.0-44.9, adult BMI 40.0-44.9, adult Problem Active [facility] Hyperlipidemia Hyperlipidemia Problem Active [facility] Follow up Follow up Problem Active [facility] Hypertriglyceridemia Hypertriglyceridemia Problem Active [facility] [place] [facility] Need for hepatitis C screening test Need for hepatitis C screeni ng test Problem Active [facility] Postcholecystectomy diarrhea Postcholecystectomy diarrhea Problem Active [facility] Blepharitis of left lower eyelid, unspecified type Ble pharitis of left lower eyelid, unspecified type Problem Active [facility] Encounter for monitoring statin therapy Encounter for monito ring statin therapy Problem Active [facility] [place] [facility] Nephropathy screen Nephropathy screen Problem Active [facility] [place] [facility] No impairment of memory No impairment of memory Problem Active [facility] [place] [facility] Heart murmur Heart murmur Problem Active [facility] [place] [facility] Depression screen Depression screen Problem Active [facility] [place] [facility] At low risk for fall At low risk for fall Problem Active [facility] [place] [facility] Essential (primary) hypertension Essential (primary) hypertensio n Problem Active [facility] [place] [facility] Mixed hyperlipidemia Mixed hyperlipidemia Problem Active [facility] [place] [facility] Sigmoid diverticulosis Sigmoid diverticulosis Problem Active [facility] [place] [facility] Low serum HDL Low serum HDL Problem Active [facility] [place] [facility] Abnormal mammogram of left breast Abnormal mammogram of left elise ast Problem Active [facility] Personal history of colonic polyps Personal history of colonic p olyps Problem Active [facility] Breast cancer screening Breast cancer screening Problem Active [facility] Screening for osteoporosis Screening for osteoporosis Problem Active [facility] Class 3 severe obesity due to excess mable ories without serious comorbidity with body mass index (BMI) of 40.0 to 44.9 in adult Class 3 severe obesity due to excess calories without serious comorbidity with body mass index (BMI) of 40.0 to 44.9 in adult Problem Active [facility] At risk for coronary artery disease At risk for coronary artery disease Problem Active [facility] Dense breast tissue on mammogram Dense breast tissue on mammogra m Problem Active [facility] Left breast mass Left breast mass Problem Active [facility] Postmenopausal Postmenopausal Problem Active [facility] Chronic diarrhea Chronic diarrhea Problem Active [facility] Vaccines Prophylactic Need Against Influenza Vaccines Prophylactic Need Against Influenza Active 10/09/2013 [facility] Problem Active 2013-10-09 12:45:51 Memilir Rosas Esophageal Reflux Esop hageal Reflux Active 10/09/2013 [facility] Problem Active 2013-10-09 12:45:51 M yoan Rosas Tinea Cruris Charo a Cruris Active 10/09/2013 [facility] Problem Active 2013-10-09 12:45:51 Erasmodaily Rosas Hypertension Hype rtension Active 10/09/2013 [facility] Problem Active 2013-10-09 12:45:51 Erasmodaily Rosas Hyperlipidemia Hype rlipidemia Active 10/09/2013 [facility] Problem Active 2013-10-09 12:45:51 M yoan Rosas Taking Medication For A Long Time Taking Medication For A Long Time Active 10/09/2013 [facility] Problem Active 2013-10-09 12:45:51 Charito Rosas Allergies, Adverse Reactions, Alerts Allergy Name Allergy Type Status Severity Reaction(s) Onset Date Inacti ve Date Treating Clinician Comments Source No Known Drug Allergies No Known Drug Allergies Active Charito Rosas Family History Family Member Diagnosis Comments Start Date Stop Date Source Mother Family history of Hypertension [facility] [place] [facility] Father Family history of Cirrhosis [facility] [place] [facility] Father Family history of alcoholism [facility] Unknown Family Member Family History 2013-05-26 14:37:22 2 14:37:22 Charito Rosas Social History Social Habit Start Date Stop Date Quantity Comments Source Sex Assigned At MD Zuniga Social History 2013-10-09 12:45:51 2013-10-09 12:45:51 Charito Rosas Smoking Status Start Date Stop Date Source Never smoked tobacco (finding) [facility] Medications Ordered Medication Name Filled Medication Name Start Date Stop Da te Current Medication? Ordering Clinician Indication Dosage Frequency Signature (SIG) Comments Components Source Remxf-3-vsif Ethyl Esters 1 GM Oral Capsule [place]-3-ac id Ethyl Esters 1 GM Oral Capsule 2019-12-04 00:00:00 Yes ELMIRA HYLTON M.D. TAKE 2 CAPSULES BY MOUTH TWICE A DAY [facility] amLODIPine Besylate 2.5 MG Oral Tablet amLODIPine Besylate 2 .5 MG Oral Tablet 2019-10-06 00:00:00 Yes ELMIRA HYLTON M.D. TAKE 1 TABLET BY MOUTH DAILY AT BEDTIME [facility] [place] [facility] Cholestyramine 4 GM Oral Packet Cholestyramine 4 GM Oral Pac ket 2019-10-06 00:00:00 Yes ELMIRA HYLTON M.D. MIX ONE PACKET AND TAKE BY MOUTH ONCE A DAY IN THE MORNING [facility] [place] [facility] Shingrix 50 MCG Intramuscular Suspension Reconstituted Shingrix 50 MCG Intramuscular Suspension Reconstituted 2019-10-06 00:00:00 Yes ELMIRA HYLTON M.D. INJECT 0.5 ML IM, please administer vacc ine series per protocol [facility] Rosuvastatin Calcium 10 MG Oral Tablet Rosuvastatin Calcium 10 MG Oral Tablet 2019-02-23 00:00:00 Yes ELMIRA HYLTON M.D. Take one tablet daily [facility] Trilipix 135 MG Oral Capsule Delayed Release 2013-10-09 12:45:51 Yes (Active) Charito Rosas Pravastatin Sodium 10 MG Oral Tablet 2013-10-09 12:45:51 Ye s (Active) Charito Rosas Multi Vitamin/Minerals Oral Tablet 2013-10-09 12:45:51 Yes (Active) Charito Rosas Calcium TABS 2013-10-09 12:45:51 Yes (Activ e) Charito Rosas Losartan Potassium-HCTZ 100-25 MG Oral Tablet 2013-10-09 06:00:0 0 Yes ; Start Date: 10/09/2013 (Active) Charito Rosas Losartan Potassium-HCTZ 100-25 MG Oral Tablet Losartan Potassium-HCTZ 100-25 MG Oral Tablet 2013-10-09 00:00:00 Yes ELMIRA HYLTON M.D. TAKE 1 TABLET BY MOUTH DAILY [facility] [place] [facility] Losartan Potassium-HCTZ 100-25 MG Oral Tablet 2013-10-02 00:15:0 9 Yes (Active) Charito Rosas AmLODIPine Besylate 5 MG Oral Tablet 2013-10-01 06:00:00 Ye s ; Start Date: 10/01/2013; End Date: (Active) Charito Rosas Fenofibric Acid 135 MG Oral Capsule Delayed Release 10-01 06:00:00 Yes ; Start Date: 10/01/2013; End Date: 08/1899 (Active) Charito Rosas AmLODIPine Besylate 5 MG Oral Tablet 2013-09-12 22:49:44 Ye s (Active) Charito Rosas NexIUM 40 MG Oral Capsule Delayed Release 2013-09-12 06:00:00 Yes ; Start Date: 09/12/2013; End Date: (Active) Charito Rosas NexIUM 40 MG Oral Capsule Delayed Release 2013-05-26 14:37:22 Yes (Active) Charito Bartonann Ranitidine HCl 300 MG Oral Tablet 2013-05-26 05:00:00 Yes ; Start Date: 05/26/2013 (Active) Charito Bartonemma bauer Econazole Nitrate 1 % External Cream 2013-05-26 05:00:00 Ye s ; Start Date: 05/26/2013 (Active) Charito Florencia nn Losartan Potassium 25 Mg Tablet Losartan Potassium 25 Mg Tablet Yes 25 Daily [facility] Esomeprazole Magnesium (Nexium) 40 Mg Capsule., 40 M g Oral Esomeprazole Magnesium (Nexium) 40 Mg Capsule., 40 Mg Oral 2018-07-26 00:00:00 No 40 Daily [facility] Fenofibric Acid (Choline) (Trilipix) 135 Mg Capsule. , 135 Mg Oral Fenofibric Acid (Choline) (Trilipix) 135 Mg Capsule., 135 Mg Oral 201 03-20-18 00:00:00 No 135 Daily [facility] Hydrocodone Bit/Acetaminophen* (Vicodin 5-500 Tablet*) 1 Each Tablet, 1 Tab Oral Hydrocodone Bit/Acetaminophen* (Vicodin 5-500 Tablet*) 1 Each Tablet, 1 Tab Oral 2018-07-26 00:00:00 No 1 Q4-6 as needed [facility] Ondansetron (Zofran Odt) 4 Mg Tab.rapdis, 14 Mg Oral O ndansetron (Zofran Odt) 4 Mg Tab.rapdis, 14 Mg Oral 2018-07-26 00:00:00 No 14 Every 4-6 Hours as needed [facility] Pravastatin Sodium (Pravachol) 40 Mg Tablet, 40 Mg Ora l Pravastatin Sodium (Pravachol) 40 Mg Tablet, 40 Mg Oral 2018-07-26 00:00:00 No 40 Daily [facility] Immunizations Ordered Immunization Name Filled Immunization Name Date Status Comments Source Pneumococcal polysaccharide vaccine, 23 valent 2019-09 14:40:[address] [facility] [place] [facility] Influenza 2019-06-09 00:00:00 [facility] Fluzone Quadrivalent 0.5 ML Intramuscular Suspension 2017-06-01 10:29:00 Completed [facility] Tdap 2015-01-07 11:11:[address] [facility] Zoster (Zostavax) 2014-12-04 10:45:00 Completed [facility] Fluzone INJ 2013-05-26 09:22:00 [facility] Hepatitis A 2011-11-19 00:00:00 [facility] Influenza 2011-06-10 00:00:[address] [facility] Vital Signs Vital Name Observation Time Observation Value Comments Source Systolic blood pressure 2020-01-19 09:17:00 126 mm[Hg] [facility] Diastolic blood pressure 2020-01-19 09:17:00 77 mm[Hg] [facility] Body height 2020-01-19 09:17:00 61 [in_us] [facility] Weight 2020-01-19 09:17:00 217 [lb_av] [facility] Body mass index (BMI) [Ratio] 2020-01-19 09:17:00 41 kg/m2 [facility] Systolic blood pressure 2019-12-15 09:17:00 133 mm[Hg] Loca tion: LUE; Position: Sitting [facility] [place] [facility] Diastolic blood pressure 2019-12-15 09:17:00 81 mm[Hg] Loc ation: LUE; Position: Sitting [facility] Body height 2019-12-15 09:17:00 61 [in_us] [facility] Weight 2019-12-15 09:17:00 217 [lb_av] [facility] Body mass index (BMI) [Ratio] 2019-12-15 09:17:00 41 kg/m2 [facility] Body temperature 2019-12-15 09:17:00 97.3 [degF] [facility] Heart Rate 2019-12-15 09:17:00 66 /min Location: L Brachial Artery; [facility] Systolic blood pressure 2019-10-06 13:47:00 132 mm[Hg] Loca tion: LUE; Position: Sitting [facility] Diastolic blood pressure 2019-10-06 13:47:00 84 mm[Hg] Loc ation: LUE; Position: Sitting [facility] Systolic blood pressure 2019-10-06 13:39:00 145 mm[Hg] Loca tion: LUE; Position: Sitting [facility] Diastolic blood pressure 2019-10-06 13:39:00 79 mm[Hg] Loc ation: LUE; Position: Sitting [facility] Body height 2019-10-06 13:39:00 61 [in_us] [facility] Weight 2019-10-06 13:39:00 217.9 [lb_av] [facility] Body mass index (BMI) [Ratio] 2019-10-06 13:39:00 41.17 kg/m2 [facility] Body temperature 2019-10-06 13:39:00 97.1 [degF] Method: Temporal [facility] Heart Rate 2019-10-06 13:39:00 74 /min Location: L Radial; [facility] Respiratory rate 2019-10-06 13:39:00 16 /min Quality: Normal [facility] BP Systolic 2019-05-19 10:17:00 127 mm[Hg] Location: [place]; [place] on: Sitting [facility] BP Diastolic 2019-05-19 10:17:00 66 mm[Hg] Location: [place]; [place] on: Sitting [facility] Height 2019-05-19 10:17:00 61 [in_us] [facility] Weight 2019-05-19 10:17:00 215 [lb_av] [facility] Body Mass Index Calculated 2019-05-19 10:17:00 40.62 kg/m2 [facility] Temperature 2019-05-19 10:17:00 98.2 [degF] Method: Temporal [facility] Heart Rate 2019-05-19 10:17:00 79 /min [facility] Respiration Rate 2019-05-19 10:17:00 16 /min [facility] BP Systolic 2019-05-12 13:12:00 122 mm[Hg] Location: [place] Con[place] on: Sitting [facility] BP Diastolic 2019-05-12 13:12:00 63 mm[Hg] Location: [place] Con[place] on: Sitting [facility] Height 2019-05-12 13:12:00 61 [in_us] [facility] Weight 2019-05-12 13:12:00 218 [lb_av] [facility] Body Mass Index Calculated 2019-05-12 13:12:00 41.19 kg/m2 [facility] Temperature 2019-05-12 13:12:00 97.7 [degF] Method: Temporal [facility] Heart Rate 2019-05-12 13:12:00 71 /min [facility] Respiration Rate 2019-05-12 13:12:00 16 /min [facility] Procedures Procedure Date / Time Performed Performing Clinician Sour e [Q] LIPID PANEL WITH REFLEX TO DIRECT LDL 2019-12-15 00:00:00 [facility] [QL] CMP W/EGFR 2019-12-15 00:00:00 [place] [facility] [N] Carotid Bilateral [id number] 2019-12-15 00:00:00 [facility] [Q] LIPID PANEL WITH REFLEX TO DIRECT LDL 2019-12-05 00:00:00 [facility] MA Digital Mammo DX Leonid [id number] 2019-12-05 00:00:00 [facility] [place] [id number] 2019-12-05 00:00:[address] [facility] [place] Bone Density DXA [employer] [id number] 2019-12-05 00:00:[address] [facility] [place] [facility] [QL] CMP W/EGFR 2019-10-06 00:00:00 [facility] [QL] TSH, 3RD GENERATION W/REFLEX TO FT4 2019-10-06 00:00:00 [facility] [Q] PROTEIN, TOTAL W/CREAT, RANDOM URINE 2019-10-06 00:00:00 [facility] [QL] HEPATITIS C ANTIBODY 2019-10-06 00:00:00 [facility] [Q] LIPID PANEL WITH REFLEX TO DIRECT LDL 2019-10-06 00:00:00 [facility] [N] 2D Echo complete, with Doppler [id number] 2019-10-06 00:00:00 [facility] [[facility]] CBC (INCLUDES DIFF/PLT) 2019-05-30 00:00:00 [facility] [QL] CMP W/EGFR 2019-05-30 00:00:00 [facility] [[facility]] LIPID PANEL 2019-05-30 00:00:00 [facility] Computed tomography of brain without radiopaque contrast 201 04-18-06 00:00:00 DINORA MCLEAN [facility] X-ray of chest, two views 2019-05-14 00:00:00 DINORA MCLEAN [facility] KNEE ARTHROSCOPY/SURGERY 2018-07-27 00:00:00 ANKUR FRANKLIN [facility] X-ray of chest, two views 2018-07-26 00:00:00 ANKUR FRANKLIN [facility] History of Hysterectomy [facility] History of Oophorectomy - Bilat (Removal Of Both Ovaries) Laparo scopic [facility] History of Cholecystectomy [facility] History of Wrist Surgery [facility] History of Knee Surgery [facility] Plan of Care Planned Activity Planned Date Details Comments Source Future Scheduled Test 2020-03-16 00:00:00 [N] Carotid Bilate ral [id number] [code = [N] Carotid Bilateral [id number]] [facility] Future Scheduled Test 2020-01-15 00:00:00 [Q] LIPID PANEL WI TH REFLEX TO DIRECT LDL [code = [Q] LIPID PANEL WITH REFLEX TO DIRECT LDL] [facility] Future Scheduled Test 2020-01-15 00:00:00 [Q] LIPID PANEL WI TH REFLEX TO DIRECT LDL [code = [Q] LIPID PANEL WITH REFLEX TO DIRECT LDL] [facility] Diagnostic Test Pending 2019-12-05 00:00:00 [place] Digital Mammo DX Leonid [id number] [code = G0204] [facility] [facility] ns Diagnostic Test Pending 2019-12-05 00:00:00 [place] [address] [code = 53203] [facility] ns Diagnostic Test Pending 2019-12-05 00:00:00 MA Bone Density DXA [employer] Energy 86662 [code = 51869] [facility] ns Diagnostic Test Pending 2019-10-06 00:00:00 [N] 2D Echo comp lete, with Doppler 65605 [code = [N] 2D Echo complete, with Doppler 76622] [facility] Future Scheduled Test 2013-05-26 14:37:22 Plan of Care [code = 1877 6-5] [facility] Future Scheduled Test [QLH] CBC (INCLUDE S DIFF/PLT) [code = [QLH] CBC (INCLUDES DIFF/PLT)] After 20Aug2019 [facility] Future Scheduled Test [QLH] CMP W/EGFR [code = [ QLH] CMP W/EGFR] After 20Aug2019 [facility] Future Scheduled Test [QLH] LIPID PANEL [code = [QLH] LIPID PANEL] After 20Aug2019 [facility] Future Appointment 2020-03-22 13:00:00 [facility] Start Date/Time End Date/Time Encounter Type Admission Type [facility] Care Department Encounter ID Source 2020-01-29 10:22:00 2020-01-29 23:59:00 Outpatient Elmira Hylton DEXTER [facility]IP [id number] 2020-01-29 00:00:00 2020-01-29 23:59:00 Outpatient MDA MDA [id number] MD Zuniga 2020-01-19 09:30:00 2020-01-19 09:30:00 Appointment; KRISTINA HYLTON M.D. GOODINE, GLENDA, M.D. [facility] [id number] [facility] 2019-12-15 09:00:00 2019-12-15 09:00:00 Appointment; BESSIE HUSSEIN M.D. CHARITAKIS, KONSTANTINOS, M.D. [facility] [id number] [facility] 2019-12-04 15:45:00 2019-12-04 15:45:00 Appointment; KRISTINA HYLTON M.D. GOODINE, GLENDA, M.D. [facility] [id number] [facility] 2019-10-25 13:00:00 2019-10-25 13:00:00 Appointment; STEPHON-Santi ORNELAS-MS, MILLIE [facility] [id number] [facility] 2019-10-06 14:15:00 2019-10-06 14:15:00 Appointment; KRISTINA HYLTON M.D. GOODINE, GLENDA, M.D. [facility] [id number] [facility] 2019-06-29 09:00:00 2019-06-29 09:00:00 Appointment; ESTEPHANIE WAGNER M.D. BYRD, MICHAEL, M.D. [facility] [id number] [facility] 2019-06-15 09:00:00 2019-06-15 09:00:00 Appointment; ESTEPHANIE WAGNER M.D. BYRD, MICHAEL, M.D. [facility] 1 [id number] [facility] 2019-05-29 08:45:00 2019-05-29 08:45:00 Appointment; DAVIDE ANSARI APRN DUGAS, NANCY, APRN [facility] 1 [id number] [facility] 2019-05-19 10:30:00 2019-05-19 10:30:00 Appointment; ZACKARY BARRY APRN HOANG, CHRISTINA, APRN [facility] [id number] [facility] 2019-05-14 12:04:00 2019-05-14 16:18:00 Departed Emergency Room 1 DINORA MCLEAN [facility] [id number] [facility] 2019-05-12 13:30:00 2019-05-12 13:30:00 Appointment; ZACKARY BARRY, ROOF TRUSS DETAILER ANGELO BARRY, ROOF TRUSS DETAILER [facility] UTP [id number] [facility] 2019-02-10 14:30:00 2019-02-10 14:30:00 Appointment; DAVIDE ANSARI, DAVIDE FIELDS, ALANA [facility] UTP [id number] [facility] 2018-11-28 14:07:00 2018-11-28 23:59:00 [facility] [id number] 2018-11-02 10:30:00 2018-11-02 10:30:00 Appointment; RACHEL MCGARRY P.A. SPOONER, JOSEPH, P.A. [facility] UTP [id number] [facility] 2018-10-24 14:54:00 2018-10-24 23:59:00 [facility] [id number] 2018-09-15 13:24:00 2018-10-06 23:59:00 Discharged Recurring [facility] [id number] [facility] 2018-08-08 09:30:00 2018-08-08 09:30:00 Appointment; KRISTINA HYLTON M.D. GOODINE, GLENDA, M.D. [facility] UTP [id number] [facility] 2018-07-27 11:08:00 2018-07-27 11:08:00 Registered Surgical Day Car e ANKUR GONZALEZ [facility] [id number] [facility] 2018-01-11 13:15:00 2018-01-11 13:15:00 Appointment; SANJUANA MEDLEY M.D. SATTAR, BEENA, M.D. [facility] UTP [id number] [facility] 2017-06-01 09:30:00 2017-06-01 09:30:00 Appointment; KRISTINA HYLTON M.D. GOODINE, GLENDA, M.D. [facility] [id number] [facility] 2016-03-10 07:46:00 2016-03-10 23:59:00 Outpatient Elmira Hylton [facility] [id number] 2015-12-23 07:38:00 2015-12-23 23:59:00 Outpatient Elmira Hylton [facility] [id number] 2015-02-20 13:28:00 2015-02-20 23:59:00 Outpatient [place] Ian lockhart [facility] [id number] 2015-01-07 10:06:00 2015-01-07 23:59:00 Outpatient Elmira Hylton [facility] [id number] 2014-01-09 16:24:00 2014-01-09 23:59:00 Outpatient Elmira Hylton [facility] [id number] 2013-10-09 06:45:51 2013-10-09 06:45:51 Outpatient [facility] [id number] 2013-10-01 18:15:10 2013-10-01 18:15:09 Outpatient IE [place] [id number] 2013-09-12 16:49:44 2013-09-12 16:49:44 Outpatient IE IE [id number] 2013-05-26 09:37:23 2013-05-26 09:37:22 [facility]patient [facility] [id number] Results Test Description Test Time Test Comments Results Result Comments Source [[facility]] LIPID PANEL 2019-05-29 09:07:00 Test Item CHOLESTEROL, TOTAL; Normal (test code = 2093-3) 155 mg/dl <200 N HDL CHOLESTEROL; Below Low Threshold (test code = 2085-9) 38 mg/dl >50 TRIGLYCERIDES; Above High Threshold (test code = 2571-8) 321 mg/dl <150 If a non-fasting specimen was collected, considerrepeat triglyceride testing on a fasting specimenif clinically indicated. Elton et al. J. of Clin. Lipidol. 2015;9:129-169. LDL-CHOLESTEROL; Normal (test code = 04497-5) 78 {MG/DL MABLE} N Reference range: <100 Desirable range <100 mg/dL for primary prevention; <70 mg/dL for patients with CHD or diabetic patients with > or = 2 CHD risk factors. LDL-C is now calculated using the Isadora calculation, which is a validated novel method providing better accuracy than the Friedewald equation in the estimation of LDL-C. Levi QUINTANA et al. CHRISSIE. 2013;310(75): 0529-9657 (http ://education.Neighbor.ly/faq/AQN106) CHOL/HDLC RATIO (test code = CHOL/HDLC RATIO) 4.1 {CALC} <5.0 N NON HDL CHOLESTEROL (test code = NON HDL CHOLESTEROL) 117 {MG/DL C AL} <130 N For patients with diabetes plus 1 major ASCVD risk factor, treating to a non-HDL-C goal of <100 mg/dL (LDL-C of <70 mg/dL) is considered a therapeutic option. [facility] [id number] 14:10:00* Test Item Value Reference Range Interpretation Comments Urine WBC (test code = 5821-4) 6-10 0-5 H [facility] ZQY4051-84-07 14:10:00* Test Item Value Reference Range Interpretation Comments Urine RBC (test code = 57100-3) 6-10 0-5 H [facility] Gyfyvqru4467-25-30 14:10:00* Test Item Value Reference Range Interpretation Comments Urine Bacteria (test code = 34876-7) RARE NONE [facility] Epithelial Skaeq3866-31-51 14:10:00 * Test Item Value Reference Range Interpretation Comments Urine Epithelial Cells (test code = 14955-0) FEW NONE [facility]iscoProthrombin Uuec9321-47-35 14:07:00* Test Item Value Reference Range Interpretation Comments Prothrombin Time (test code = 5902-2) 14.1 11.9-14.5 [facility]iscoProthromb Time International Ratio 2019-05-14 14:07:00* Test Item Value Reference Range Interpretation Comments Prothromb Time International Ratio (test code = 6301-6) 1.04 Oral Anticoagulant Therapy INR Values:1. Low Intensity Therapy 1.5 - 2.02 . Moderate Intensity Therapy 2.0 - 3.03. High Intensity Therapy(1) 2.5 - 3. 54. High Intensity Therapy(2) 3.0 - 4.05. Panic Value INR > 5.0 [facility]iscoAct[facility] Partial Thromboplast Time 2019-05-14 14:07:00* Test Item Value Reference Range Interpretation Comments Activated Partial Thromboplast Time (test code = 64613-6) 31.0 23.8-35.5 [facility]iscoCHEST 2 HNHYI5628-29-74 14:07:00 [facility] [address] [address] Patient Name: RACHAEL ASCENCIO MR #: [id number] : 1955 Age/Sex: 64/F Req #: [id number] Adm Physician: Ordered by: DINORA MCLEAN MD Report #: [id number] Location: ER Room/Bed: Procedure: [id number] DX /CHEST 2 VIEWS Exam Date: 05/14/19 Exam Time: 1345 REPORT STATUS: Signed Frontal and lateral views of the chest. HISTORY: High blood pressure, altered mental status COMPARISON: Images from chest radiographs July 26, 2018. DISCUSSION: Soft tissue attenuation partially limits sensitivity of the exam. Overlying monitoring leads. Lungs: The lungs are well inflated. No evidence of a consolidative pneumonia or pulmonary alveolar edema. Pleu ra: No pleural effusion or pneumothorax. Heart and mediastinum: The cardiomediastinal silhouette appear(s) unremarkable. Bones and soft tissue s: Mild multilevel degenerative disc changes. IMPRESSION: 1. No acute radiographic abnormality. 2. No significant interval change. Ashley d by: Dr. Pipo Gonzalez D.O., M.M.M. on 05/14/2019 2:10 PM Dictated By: MARY GONZALEZ DO 09 Transcri bed By: KRISTYN on 05/14/191409 COPY TO: DINORA MCLEAN MD CT BRAIN PH4713-11-14 14:06:[address] [address] Patient Name: RACHAEL ASCENCIO MR #: [id number] : 1955 Age/Sex: 64/F Req #: [id number] Adm Physician: Ordered by: DINORA MCLEAN MD Report #: [id number] Location: ER Room/Bed: Procedure: [id number] CT /CT BRAIN WO Exam Date: 05/14/19 Exam Time: 1340 REPORT STATUS: Signed History: Alte red mental status Comparison studies: None Technique: Axial imag es were obtained from the skull base to the vertex. Coronal and sagittal rec onstructions obtained from the axial data. Dose modulation, iterative reconstr uction, and/or weight based adjustment of the mA/kV was utilized to reduce th e radiation dose to as low as reasonably achievable. Intravenous contras t: None Findings: Scalp/skull: No abnormalities. No fractures, marjan tic or lytic lesions. Extra-axial spaces: No masses. No fluid collectio ns. Brain sulci: Appropriate for age. Ventricles: Normal in size and conf iguration. No hydrocephalus. Parenchyma: No abnormal densities. No ma sses, hemorrhage, acute or chronic cortical vascular insults. Sellar/supras ellar region: No abnormalities Craniocervical junction: Patent foramen magnum. No Chiari one malformation. Incidental findings: Partially visualized a ir-fluid levels within the left greater and right sphenoid sinus and opacifica tion of the left maxillary sinus and scattered ethmoid air cells. IMPRESS ION: 1. No acute intracranial abnormalities. 2. Air-fluid levels within the sphenoid sinuses as well as partially visualized opacification of the lef t maxillary and ethmoid air cells. Correlation for signs/symptoms of sinusitis is recommended. Signed by: DR Garett Mendes M.D. on 05/14/2019 3:44 PM Dictated By: GARETT TABOR MD 43 Transcribed By: KRISTYN on 05/14/191543 COPY TO: DINORA MCLEAN MD Sodium Yddnt3202-05-02 14:05:00* Test Item Value Reference Range Interpretation Comments Sodium Level (test code = 2951-2) 142 136-145 [facility]assium Didpq3901-46-43 14:05:00* Test Item Value Reference Range Interpretation Comments Potassium Level (test code = 2823-3) 3.2 3.5-5.1 L [facility]iscoChloride Ssxvq7525-06-62 14:05:00* Test Item Value Reference Range Interpretation Comments Chloride Level (test code = 2075-0) 103 98-107 [facility]iscoCarbon Dioxide Mwcew4146-31-78 14:05:00* Test Item Value Reference Range Interpretation Comments Carbon Dioxide Level (test code = 2028-9) 27 22-29 [facility] FriscoAnion Yuw3945-52-22 14:05:00* Test Item Value Reference Range Interpretation Comments Anion Gap (test code = 29880-0) 15.2 8-16 [facility]iscoBlood Urea Ryentocu5946-49-07 14:05:00* Test Item Value Reference Range Interpretation Comments Blood Urea Nitrogen (test code = 3094-0) 14 7-26 [facility]iscoCreatinine2019-10-06 14:05:00* Test Item Value Reference Range Interpretation Comments Creatinine (test code = 2160-0) 0.73 0.57-1.11 [facility]iscoBUN/Creatinine Brzfx4625-22-51 14:05:00* Test Item Value Reference Range Interpretation Comments BUN/Creatinine Ratio (test code = 3097-3) 19 6-25 [facility]iscoEstimat Glomerular Filtration Rate 2019-05-14 14:05:00* Test Item Value Reference Range Interpretation Comments Estimat Glomerular Filtration Rate (test code = 586287619) > 60 >60 Ranges were taken from the National Kidney Disease Education Program and the [facility] Foundation literature.Reference ranges:60 or greater: Tnhpaz71-36 ( for 3 consecutive months): Chronic kidney disease 15 or less: Kidney failureTexas Health FriscoGlucose Ghsje5444-68-49 14:05:00* Test Item Value Reference Range Interpretation Comments Glucose Level (test code = YJF2827) 104 74-118 [facility]iscoCalcium Pcdsa5841-76-11 14:05:00* Test Item Value Reference Range Interpretation Comments Calcium Level (test code = 36944-0) 9.7 8.4-10.2 [facility]iscoTotal Vfmhlavzd9565-24-30 14:05:00* Test Item Value Reference Range Interpretation Comments Total Bilirubin (test code = 1975-2) 0.3 0.2-1.2 [facility] FriscoAspartate Amino Transf (AST/SGOT) 2019-05-14 14:05:00* Test Item Value Reference Range Interpretation Comments Aspartate Amino Transf (AST/SGOT) (test code = Aspartate Amino Transf (AST/SGOT)) 17 5-34 [facility]iscoAlanine Aminotransferase (ALT/SGPT) 2019-05-14 14:05:00* Test Item Value Reference Range Interpretation Comments Alanine Aminotransferase (ALT/SGPT) (test code = 1742-6) 27 0-55 [facility] FriscoTotal Djkipgu2260-45-81 14:05:00* Test Item Value Reference Range Interpretation Comments Total Protein (test code = 2885-2) 7.3 6.5-8.1 [facility] FriscoAlbumin2019-10-06 14:05:00* Test Item Value Reference Range Interpretation Comments Albumin (test code = 1751-7) 3.3 3.5-5.0 L [facility] FriscoGlobulin2019-10-06 14:05:00* Test Item Value Reference Range Interpretation Comments Globulin (test code = 19629-5) 4.0 2.3-3.5 H [facility] FriscoAlbumin/Globulin Mabgf4768-63-16 14:05:00 * Test Item Value Reference Range Interpretation Comments Albumin/Globulin Ratio (test code = 1759-0) 0.8 0.8-2.0 [facility] FriscoAlkaline Ygaptuhkykf2081-32-64 14:05:00* Test Item Value Reference Range Interpretation Comments Alkaline Phosphatase (test code = 6768-6) 104 40-150 [facility]iscoCreatine Iyomye4939-84-51 14:05:00* Test Item Value Reference Range Interpretation Comments Creatine Kinase (test code = 2157-6) 119 29-168 [facility]iscoCreatine Kinase SN0577-77-66 14:05:00* Test Item Value Reference Range Interpretation Comments Creatine Kinase MB (test code = 80565-1) 2.00 0-5.0 [facility]iscoTroponin L9904-32-53 14:05:00* Test Item Value Reference Range Interpretation Comments Troponin I (test code = BTR7555) < 0.001 0-0.300 [facility]iscoWhite Blood Mrzdn6216-30-97 14:02:00* Test Item Value Reference Range Interpretation Comments White Blood Count (test code = 6690-2) 15.88 4.8-10.8 H [facility] FriscoRed Blood Yfvts7824-48-76 14:02:00* Test Item Value Reference Range Interpretation Comments Red Blood Count (test code = 789-8) 4.88 3.6-5.1 [facility]iscoHemoglobin2019-10-06 14:02:00* Test Item Value Reference Range Interpretation Comments Hemoglobin (test code = 65115-7) 13.7 12.0-16.0 [facility]iscoHematocrit2019-10-06 14:02:00* Test Item Value Reference Range Interpretation Comments Hematocrit (test code = 4544-3) 42.0 34.2-44.1 [facility] FriscoMean Corpuscular Tnzgav8131-93-36 14:02:00* Test Item Value Reference Range Interpretation Comments Mean Corpuscular Volume (test code = 787-2) 86.1 81-99 [facility]iscoMean Corpuscular Yahjjwquuo6461-85-54 14:02:00* Test Item Value Reference Range Interpretation Comments Mean Corpuscular Hemoglobin (test code = 785-6) 28.1 28-32 [facility] FriscoMean Corpuscular Hemoglobin Concent 2019-05-14 14:02:00* Test Item Value Reference Range Interpretation Comments Mean Corpuscular Hemoglobin Concent (test code = 786-4) 32.6 31-35 [facility]iscoRed Cell Distribution Gmtle9082-15-82 14:02:00* Test Item Value Reference Range Interpretation Comments Red Cell Distribution Width (test code = 81568-4) 13.1 11.7 -14.4 [facility]iscoPlatelet Hddkh1618-60-56 14:02:00* Test Item Value Reference Range Interpretation Comments Platelet Count (test code = 777-3) 282 140-360 [facility]iscoNeutrophils (%) (Auto)2019-05-14 14:02:00 * Test Item Value Reference Range Interpretation Comments Neutrophils (%) (Auto) (test code = 47287-8) 73.4 38.7-80.0 [facility]iscoLymphocytes (%) (Auto)2019-05-14 14:02:00 * Test Item Value Reference Range Interpretation Comments Lymphocytes (%) (Auto) (test code = 736-9) 18.4 18.0-39.1 [facility]iscoMonocytes (%) (Auto)2019-05-14 14:02:00* Test Item Value Reference Range Interpretation Comments Monocytes (%) (Auto) (test code = 5905-5) 7.1 4.4-11.3 [facility]iscoEosinophils (%) (Auto)2019-05-14 14:02:00 * Test Item Value Reference Range Interpretation Comments Eosinophils (%) (Auto) (test code = 713-8) 0.1 0.0-6.0 [facility]iscoBasophils (%) (Auto)2019-05-14 14:02:00* Test Item Value Reference Range Interpretation Comments Basophils (%) (Auto) (test code = 706-2) 0.2 0.0-1.0 [facility] FriscoIM GRANULOCYTES %2019-05-14 14:02:00* Test Item Value Reference Range Interpretation Comments IM GRANULOCYTES % (test code = IM GRANULOCYTES %) 0.8 0.0- 1.0 [facility]iscoNeutrophils # (Auto)2019-05-14 14:02:00* Test Item Value Reference Range Interpretation Comments Neutrophils # (Auto) (test code = 751-8) 11.7 2.1-6.9 H [facility]iscoLymphocytes # (Auto)2019-05-14 14:02:00* Test Item Value Reference Range Interpretation Comments Lymphocytes # (Auto) (test code = 25538-4) 2.9 1.0-3.2 [facility]iscoMonocytes # (Auto)2019-05-14 14:02:00* Test Item Value Reference Range Interpretation Comments Monocytes # (Auto) (test code = 742-7) 1.1 0.2-0.8 H [facility]iscoEosinophils # (Auto)2019-05-14 14:02:00* Test Item Value Reference Range Interpretation Comments Eosinophils # (Auto) (test code = 711-2) 0.0 0.0-0.4 [facility]iscoBasophils # (Auto)2019-05-14 14:02:00* Test Item Value Reference Range Interpretation Comments Basophils # (Auto) (test code = 704-7) 0.0 0.0-0.1 [facility] FriscoAbsolute Immature Granulocyte (auto 2019-05-14 14:02:00* Test Item Value Reference Range Interpretation Comments Absolute Immature Granulocyte (auto (alirio t code = Absolute Immature Granulocyte (auto) 0.13 0-0.1 H [facility]iscoUrine Ipiph5874-10-78 14:01:00* Test Item Value Reference Range Interpretation Comments Urine Color (test code = 5778-6) YELLOW YELLOW [facility]iscoUrine Aerzude7786-67-51 14:01:00* Test Item Value Reference Range Interpretation Comments Urine Clarity (test code = 52281-6) CLEAR CLEAR [facility]iscoUrine Specific Uajykyg2104-25-93 14:01:00 * Test Item Value Reference Range Interpretation Comments Urine Specific [place] (test code = 5811-5) 1.015 1.010-1.02 5 [facility]iscoUrine uG0645-33-19 14:01:00* Test Item Value Reference Range Interpretation Comments Urine pH (test code = 75519-7) 7.5 5-7 [facility]iscoUrine Leukocyte Zzlhhyla7956-84-62 14:01:00* Test Item Value Reference Range Interpretation Comments Urine Leukocyte Esterase (test code = 83136-5) TRACE NEGATIV E H [facility]iscoUrine Pbfsqkk4531-18-81 14:01:00* Test Item Value Reference Range Interpretation Comments Urine Nitrite (test code = 98618-2) NEGATIVE NEGATIVE [facility]iscoUrine Wccnzcu8497-06-78 14:01:00* Test Item Value Reference Range Interpretation Comments Urine Protein (test code = 69998-1) TRACE NEGATIVE H [facility]iscoUrine Glucose (UA)2019-05-14 14:01:00* Test Item Value Reference Range Interpretation Comments Urine Glucose (UA) (test code = 89379-1) NEGATIVE NEGATIVE [facility]iscoUrine Jstcdod7231-85-59 14:01:00* Test Item Value Reference Range Interpretation Comments Urine Ketones (test code = 72704-6) NEGATIVE NEGATIVE [facility]iscoU[facility] Sohkjwwyyzab5224-02-15 14:01:00* Test Item Value Reference Range Interpretation Comments Urine Urobilinogen (test code = 09065-1) 0.2 0.2-1 [facility]iscoU[facility] Qznwxcxel8909-92-94 14:01:00* Test Item Value Reference Range Interpretation Comments Urine Bilirubin (test code = 1977-8) NEGATIVE NEGATIVE [facility]iscoUrine Fjeof4049-97-25 14:01:00* Test Item Value Reference Range Interpretation Comments Urine Blood (test code = 01789-0) TRACE NEGATIVE [facility]iscoWhite Blood Ferge4690-10-47 09:06:00* Test Item Value Reference Range Interpretation Comments White Blood Count (test code = 6690-2) 8.07 4.8-10.8 [facility]iscoRed Blood Kqyjc4138-20-08 09:06:00* Test Item Value Reference Range Interpretation Comments Red Blood Count (test code = 789-8) 5.03 3.6-5.1 [facility]iscoHemoglobin2018-12-18 09:06:00* Test Item Value Reference Range Interpretation Comments Hemoglobin (test code = 23548-1) 14.2 12.0-16.0 [facility]iscoHematocrit2018-12-18 09:06:00* Test Item Value Reference Range Interpretation Comments Hematocrit (test code = 4544-3) 44.4 34.2-44.1 H [facility]iscoMean Corpuscular Dhblec2592-08-23 09:06:00* Test Item Value Reference Range Interpretation Comments Mean Corpuscular Volume (test code = 787-2) 88.3 81-99 [facility]iscoMean Corpuscular Pdthipeuhv6118-48-25 09:06:00* Test Item Value Reference Range Interpretation Comments Mean Corpuscular Hemoglobin (test code = 785-6) 28.2 28-32 [facility]iscoMean Corpuscular Hemoglobin Concent 2018-07-26 09:06:00* Test Item Value Reference Range Interpretation Comments Mean Corpuscular Hemoglobin Concent (test code = 786-4) 32.0 31-35 [facility]iscoRed Cell Distribution Pkxoi5230-17-29 09:06:00* Test Item Value Reference Range Interpretation Comments Red Cell Distribution Width (test code = 79373-1) 13.7 11.7 -14.4 [facility] FriscoPlatelet Tkkhd8773-10-61 09:06:00* Test Item Value Reference Range Interpretation Comments Platelet Count (test code = 777-3) 207 140-360 [facility]iscoNeutrophils (%) (Auto)2018-07-26 09:06:00 * Test Item Value Reference Range Interpretation Comments Neutrophils (%) (Auto) (test code = 46560-1) 55.0 38.7-80.0 [facility]iscoLymphocytes (%) (Auto)2018-07-26 09:06:00 * Test Item Value Reference Range Interpretation Comments Lymphocytes (%) (Auto) (test code = 736-9) 33.6 18.0-39.1 [facility]iscoMonocytes (%) (Auto)2018-07-26 09:06:00* Test Item Value Reference Range Interpretation Comments Monocytes (%) (Auto) (test code = 5905-5) 7.7 4.4-11.3 [facility]iscoEosinophils (%) (Auto)2018-07-26 09:06:00 * Test Item Value Reference Range Interpretation Comments Eosinophils (%) (Auto) (test code = 713-8) 3.0 0.0-6.0 [facility]iscoBasophils (%) (Auto)2018-07-26 09:06:00* Test Item Value Reference Range Interpretation Comments Basophils (%) (Auto) (test code = 706-2) 0.5 0.0-1.0 [facility]iscoIM GRANULOCYTES %2018-07-26 09:06:00* Test Item Value Reference Range Interpretation Comments IM GRANULOCYTES % (test code = IM GRANULOCYTES %) 0.2 0.0- 1.0 [facility]iscoNeutrophils # (Auto)2018-07-26 09:06:00* Test Item Value Reference Range Interpretation Comments Neutrophils # (Auto) (test code = 751-8) 4.4 2.1-6.9 [facility]iscoLymphocytes # (Auto)2018-07-26 09:06:00* Test Item Value Reference Range Interpretation Comments Lymphocytes # (Auto) (test code = 52855-2) 2.7 1.0-3.2 [facility]iscoMonocytes # (Auto)2018-07-26 09:06:00* Test Item Value Reference Range Interpretation Comments Monocytes # (Auto) (test code = 742-7) 0.6 0.2-0.8 [facility]iscoEosinophils # (Auto)2018-07-26 09:06:00* Test Item Value Reference Range Interpretation Comments Eosinophils # (Auto) (test code = 711-2) 0.2 0.0-0.4 [facility]iscoBasophils # (Auto)2018-07-26 09:06:00* Test Item Value Reference Range Interpretation Comments Basophils # (Auto) (test code = 704-7) 0.0 0.0-0.1 [facility] 2018-07-26 09:06:00* Test Item Value Reference Range Interpretation Comments Absolute Immature Granulocyte (auto (alirio t code = Absolute Immature Granulocyte (auto) 0.02 0-0.1 [facility] [id number] 09:05:00 [place] [address] Patient Name: RACHAEL ASCENCIO MR #: [id number] : 1955 Age/Sex: 63/F Req #: [id number] Adm Physician: Ordered by: ANKUR FRANKLIN MD Report #: [id number] Location: OR Room/Bed: Procedure: [id number] DX/CHEST 2 VIEWS Exam Date: 07/26/18 Exam Time: 083 0 REPORT STATUS: Signed PROCEDUR E: X-RAY CHEST, TWO VIEWS COMPARISON: None. INDICATIONS: PRE OPERATIVE CHEST X-RAY FOR KNEE SURGERY FINDINGS: The lungs are well-inflated. No focal airspace consolidation, pleural effusion, or pneumothorax. Mildly tortu ous thoracic aorta with otherwise normal cardiomediastinal contour for techni que. No acute osseous abnormality. Surgical clips project over the upper abdomen on the lateral radiograph and likely reflect cholecystectomy. CO NCLUSION: No acute cardiopulmonary abnormality. Dictated by: Konrad Aldridge M.D. on 07/26/2018 at 9:05 Electronically approved by: En cuenca M.D. on 07/26/2018 at 9:05 Dictated By: EN ALDRIDGE MD El ectronically Signed By: EN ALDRIDGE MD on 07/26/18904 Transcribed By: PARMINDER on 07/26/18904 COPY TO: ANKUR FRANKLIN MD
--- OUTSIDE RECORDS SUMMARY | 2020-03-19 13:17 | XMS REPORT | Summary of Care ---
Author Author JOSÉ LUIS Castellanos, RACHAEL Balderas Organization Unknown Address Unknown Phone Unavailable Care Team Providers Care Traffic Operations Manager Name Role Phone ANGELO BARRY APRN Unavailable Unavailable JOSÉ LUIS Castellanos, ELMIRA Unavailable Unavailable DAVIDE ANSARI APRN Unavailable Unavailable JOSÉ LUIS SHELTON [place], ELMIRA VELASCO Unavailable Unavailable ALISSA SHELTON, LUIS ANTONIO Vu Unavailable Unavailable LEIGH SHELTON [place], FAITH Alvarado Unavailable Unavailable ASHA COORDINATOR INTEGRATED MARKETING-C, ANGELO Maza Unavailable Unavailable JASMYNE SHELTON, SANJUANA [...] (V76.51, Z12. 11) Status: Active Need for swhaxquxbo-vswcoag-bzpbabkrg (T dap) vaccine (V06.1, Z23) Status: Active [...] N39.0) Status: Active Influenza vaccination declined by roc t (V64.06, Z28.21) Status: Active Suspected sleep [...] 06-Oct-2019 [N] 2D Echo complete, with Doppler 68789 Date: 06-Oct-2019 History of Hysterectomy Completed History of Oophorectomy - Bilat (Removal Of Both Ovaries) La paroscopic Completed History of Cholecystectomy Completed History of Wrist Surgery Completed History of Knee Surgery Completed Immunization Name Dates Details Influenza on: 10-Jun-2011 Hepatitis A on: 19-Nov-2011 Fluzone INJ Lot #: [id number] on: 18-Oct-2013 Zoster (Zostavax) Lot #: [id number] on: 04-Dec-2014 Tdap Lot #: [id number] on: 07-Jan-2015 Fluzone Quadrivalent 0.5 ML Intramuscula r Suspension Lot #: [id number] on: 01-Jun-2017 Influenza on: 09-Jun-2019 Pneumococcal polysaccharide vaccine, 23 valent Lot #: [id number] on: 06-Oct-2019 Family History Name Dates Details Family history of Hypertension (V17.49) Status: Active Name Dates Details Family history of Cirrhosis Status: Active Family history of Alcoholism Status: Active Social History Name Dates Details - Status: Name Dates Details Never smoked tobacco (finding) Vital Signs Date Test Result Details [id number] Systolic blood pressure 132 mm[Hg] Status: Comments [...] Oct 2019 * Tobacco Use Screening; Done: 13 Oct 2019 * Tobacco Use Screening; Done: 06 Oct 2019 * Tobacco Use Screening; Done: 06 Oct 2019 Follow-ups/Referrals* Ophthalmology Referral; To Be Done: 06 Oct 2019 Medications/Immunizations Administered* Pneumococcal polysaccharide vaccine, 23 valent; Done: 06 Oct 2019 Plan* Hypertension: * - START Amlodipine 2.5 mg daily at bedtime * - Continue Losartan- HCTZ 100- 25 mg daily * Postcholecystectomy diarrhea: * - START Cholestyramine 4 GM, mix one packet and take by mouth once a day in the morning * Blepharitis of left lower eyelid: * - Patient referred to opthalmology for ongoing care * Labs ordered for monitoring HTN, HLD, and screening for thyroid disorders including: CMP w/eGFR, TSH w/reflex to FT4, Lipid panel, and random urine with total protein creatinine ratio. * Hepatitis C screening: Hepatitis C antibody * Immunizations: Pneumovax- 23 vaccine administered in office today. Shingrix vaccine prescription provided. Patient advised to have vaccine administered at a local pharmacy. * Class 3 obesity with BMI of 41.17: Diet and exercise counseling * Depression Screen: Negative with a PHQ-9 score of 0 * Fall risk: Low with no falls in the past year * Mini-cognitive examination: Negative for cognitive impairment with a score of 5/5 on clock and word recall * Return to clinic in 1 months for follow up evaluation of HTN. * Return to clinic sooner if needed. Instructions Name Dates Details Instructions not documented Encounters Appointment; ASNJUANA MEDLEY M.D. Encounter Diagnosis: Problem not documented [...] Problem not documented On: 19-May-2019 10:30 Appointment; DVAIDE ANSARI APRN Encounter Diagnosis: Problem not documented On: 29-May-2019 8:45 Appointment; ESTEPHANIE WAGNER M.D. Encounter Diagnosis: Problem not documented On: 29-Jun-2019 9:00 Appointment; ELMIRA ORDONEZ M.D. Encounter Diagnosis: Problem not documented On: 06-Oct-2019 14:15
--- OUTSIDE RECORDS SUMMARY | 2020-03-19 13:17 | XMS REPORT | Summary of Care ---
Author Author RACHAEL Gaviria Organization Unknown Address Unknown Phone Unavailable Care Team Providers Care Staff Forester Name Role Phone JOSÉ LUIS Castellanos, ELMIRA Unavailable Unavailable Amanda Gaviria Unavailable Unavailable JOSÉ LUIS SHELTON [place], ELMIRA VELASCO Unavailable Unavailable ALISSA SHELTON, LUIS ANTONIO Vu Unavailable Unavailable LEIGH SHELTON [place], FAITH Alvarado Unavailable Unavailable ASHA MEDICAL AIDES TEACHER-C, ANGELO Maza Unavailable Unavailable JASMYNE SHELTON, SANJUANA [...] (V76.51, Z12. 11) Status: Active Need for fmwxzdavhr-phtrknb-sfdstasqs (T dap) vaccine (V06.1, Z23) Status: Active [...] Castellanos, ELMIRA * Start : 06-Oct-2019 Active Znxne-6-ebiw Ethyl Esters 1 GM Oral Capsule TAKE [...] G0204 Date: 05-Dec-2019 [place] [address] Date: 05-Dec-2019 [place] Bone Density DXA Dual Energy 94981 Date: 05-Dec-2019 History of Hysterectomy Completed History of Oophorectomy - Bilat (Removal Of Both Ovaries) La paroscopic Completed History of Cholecystectomy Completed History of Wrist Surgery Completed History of Knee Surgery Completed Immunization Name Dates Details Influenza on: 10-Jun-2011 Hepatitis A on: 19-Nov-2011 Fluzone INJ Lot #: [id number] on: 26-May-2013 Zoster (Zostavax) Lot #: [id number] on: 04-Dec-2014 Tdap Lot #: [id number] on: 07-Jan-2015 Fluzone Quadrivalent 0.5 ML Intramuscula r Suspension Lot #: [id number] on: 01-Jun-2017 Influenza on: 09-Jun-2019 Pneumococcal polysaccharide vaccine, 23 valent Lot #: [id number] on: 06-Oct-2019 Family History Name Dates Details [...] Observations Planned Goals not documented Planned Encounters Cardiology Referral Appointment; BESSIE PÉREZ M .D. On: 15-Dec-2019 9:00 Appointment; MARI KOVACS M.D. On: 21-Dec-2019 13:30 Appointment; ELMIRA ORDONEZ M.D. On: 19-Jan-2020 9:00 Instructions Name Dates Details Instructions not [...] Problem not documented On: 06-Oct-2019 14:15 Appointment; [facility] [place] Encounter Diagnosis: Problem not documented On: 25-Oct-2019 13:00 Appointment; ELMIRA ORDONEZ M.D. Encounter Diagnosis: Problem not documented On: 04-Dec-2019 15:45
--- OUTSIDE RECORDS SUMMARY | 2020-03-19 13:17 | XMS REPORT | Summary of Care ---
Author Author RACHAEL Roa R.N. Unknown Address Unknown Phone Unavailable Care Team Providers Care Tip Finisher Name Role Phone ASHA Bird.Jeff, ANGELO Unavailable Unavailable JOSÉ LUIS Castellanos, ELMIRA Unavailable Unavailable Crispin Duarte, Elena Unavailable Unavailable ZEFERINO P.A., LIGIA Unavailable Unavailable ELAN N.P., DAVIDE Unavailable Unavailable JOSÉ LUIS SHELTON CT, ELMIRA VELASCO Unavailable Unavailable ALISSA SHELTON, LUIS ANTONIO Vu Unavailable Unavailable LEIGH SHELTON [place], FAITH Alvarado Unavailable Unavailable ASHA SEWING MACHINE REPAIRER-C, ANGELO Maza Unavailable Unavailable JASMYNE SHELTON, SANJUANA [...] (V76.51, Z12. 11) Status: Active Need for qwhhmgnypn-spebxhj-smkfeeokb (T dap) vaccine (V06.1, Z23) Status: Active [...] Active Mixed hyperlipidemia (272.2, E78.2) Status: Active Medications Name Dates Details Losartan Potassium-HCTZ 100-25 MG Oral T ablet TAKE 1 TABLET BY MOUTH DAILY Quantity: 30 ELMIRA ORDONEZ M.D. * Start : 09-Oct-2013 Active Rpfpjbxw-Ljbmzlxeu-QW 3.5-08692-7 Ophthalmic Suspension * Refills: 0 LIGIA LAND * Start : 02-Nov-2018 Active 7.5 ML Bottle Rosuvastatin Calcium 10 MG Oral Tablet TAKE 1 TABLET BY MOUTH AT BEDTIME * Quantity: 90 Refills: 0 ELAN N.P.DAVIDE * Start : 23-Feb-2019 Active Metoprolol Succinate ER 25 MG Oral Tablet Extended Release 24 Hour TAKE 1 TABLET DAILY. * Quantity: 30 Refills: 3 ASHA N.P.ANGELO * Start : 19-May-2019 Active Ciprodex 0.3-0.1 % Otic Suspension INSTILL 4 DROPS IN THE AFFECTED EAR(S) TWICE DAILY * Quantity: 1 Refills: 0 ASHA N.P.ANGELO * Start : 19-May-2019 Active 7.5 ML Bottle Fluticasone Propionate 50 MCG/ACT Nasal Suspension USE 2 SPRAYS IN EACH NOSTRIL TWICE DAILY. * Quantity: 1 Refills: 0 ASHA N.P.ANGELO * Start : 19-May-2019 Active 16 GM Bottle Cikii-5-uyhw Ethyl Esters 1 GM Oral Capsule TAKE 2 CAPSULE TWICE DAILY. * Quantity: 360 Refills: 1 ELAN N.P.DAVIDE * Start : 30-May-2019 Active Allergies and [...] of Polyp of sigmoid colon (211.3 , D12.5) Status: Resolved Procedures Procedure Dates Details [PENDING SALE TO [facility]] CBC (INCLUDES DIFF/PLT) Date: 30-May-2019 [PENDING SALE TO [facility]] CMP W/EGFR Date: 30-May-2019 [PENDING SALE TO [facility]] LIPID PANEL Date: 30-May-2019 History of Hysterectomy Completed History of Oophorectomy - Bilat (Removal Of Both Ovaries) La paroscopic Completed History of Cholecystectomy Completed History of Wrist Surgery Completed History of Knee Surgery Completed Immunization Name Dates Details Influenza on: 10-Jun-2011 Hepatitis A on: 19-Nov-2011 Fluzone INJ Lot #: [id number] on: 26-May-2013 Zoster (Zostavax) Lot #: [id number] on: 04-Dec-2014 Tdap Lot #: [id number] on: 07-Jan-2015 Fluzone Quadrivalent 0.5 ML Intramuscula r Suspension Lot #: [id number] on: 01-Jun-2017 Family History Name Dates Details Family history of Hypertension (V17.49) Status: Active Name Dates Details Family history of Cirrhosis Status: Active Family history of Alcoholism Status: Active Social History Name Dates Details - Status: Name Dates Details Never smoker Vital Signs Date Test Result Details 18-Gge-305191:17 BP Systolic 127 mm[Hg] Status: Comments: Lo cation: LUE; Position: Sitting BP Diastolic 66 mm[Hg] Status: Comments: Lo cation: LUE; Position: Sitting Height 61 in Status: Weight 215 lb Status: Body Mass Index Calculated 40.62 kg/m2 Status: Body Surface Area Calculated 1.95 m2 Status: Temperature 98.2 f Status: Comments: Me thod: Temporal Heart Rate 79 /min Status: Respiration Rate 16 /min Status: Results Date Description Value Details 01-Byr-19586:07 [PENDING SALE TO [facility]] LIPID PANEL Comments: REPORT COM MENT:FASTING:YES CHOLESTEROL, TOTAL 155 mg/dl (Normal) Range: <2 00 HDL CHOLESTEROL 38 mg/dl (Below low threshold) Range: >50 TRIGLYCERIDES 321 mg/dl (Above high threshold ) Range: <150 Comments: If a non-fasting specimen was collected, considerrepeat triglyceride testing on a fasting specimenif clinically indicated. Elton et al. J. of Clin. Lipidol. 2015;9:129-169. LDL-CHOLESTEROL 78 {MG/DL__CAL} (Normal) Commen ts: Reference range: <100 Desirable range <100 mg/dL for primary prevention; <70 mg/dL for patients with CHD or diabetic patients with > or = 2 CHD risk factors. LDL-C is now calculated using the Levi-Lennon calculation, which is a validated novel method providing better accuracy than the Friedewald equation in the estimation of LDL- C. Levi QUINTANA et al. CHRISSIE. 2013;310(19): 8922-5678 (http ://education.SetJam.TokBox/faq/WKB789) CHOL/HDLC RATIO 4.1 {CALC} (Normal) Range: <5.0 NON HDL CHOLESTEROL 117 {MG/DL__CAL} (Normal) R joyce: <130 Comments: For patients with diabetes plus 1 major ASCVD risk factor, treating to a non-HDL-C goal of <100 mg/dL (LDL-C of <70 mg/dL) is considered a therapeutic option. Plan of Care Name Dates Details Planned Observations Planned Goals not documented Planned Encounters Appointment; ESTEPHANIE WAGNER M.D. On: 29-Jun-2019 9:00 Interventions Provided Medication Changes* Losartan Potassium-HCTZ 100-25 MG Oral Tablet - Renew Instructions Name Dates Details Instructions not documented Encounters Appointment; SANJUANA MEDLEY M.D. Encounter Diagnosis: Problem not documented On: 11-Jan-2018 13:15 Appointment; ELMIRA ORDONEZ M.D. Encounter Diagnosis: Problem not documented On: 08-Aug-2018 9:30 Appointment; LIGIA MCGARRY P.A. Encounter Diagnosis: Problem not documented On: 02-Nov-2018 10:30 Appointment; DAVIDE ANSARI NP Encounter Diagnosis: Problem not documented On: 10-Feb-2019 14:30 Appointment; ANGELO BARRY NP Encounter Diagnosis: Problem not documented On: 12-May-2019 13:30 Appointment; ANGELO BARRY NP Encounter Diagnosis: Problem not documented On: 19-May-2019 10:30 Appointment; DAVIDE ANSARI NP Encounter Diagnosis: Problem not documented On: 29-May-2019 8:45
--- OUTSIDE RECORDS SUMMARY | 2020-03-19 13:18 | XMS REPORT | Summary of Care ---
Author Author RACHAEL Bloom R.N. Organization Unknown Address Unknown Phone Unavailable Care Team Providers Care Production Counter Name Role Phone JOSÉL UIS Castellanos, ELMIRA Unavailable Unavailable BETO Castellanos, BESSIE Unavailable Unavailab nadege ORDONEZ MD [place], ELMIRA VELASCO Unavailable Unavailable ALISSA SHELTON, LUIS ANTONIO Vu Unavailable Unavailable LEIGH SHELTON [place], FAITH Alvarado Unavailable Unavailable ASHA DORSEY, ANGELO Maza Unavailable Unavailable JASMYNE SHELTON, SANJUANA [...] (V76.51, Z12. 11) Status: Active Need for nskshidnoo-bclxodw-jecpjiwus (T dap) vaccine (V06.1, Z23) Status: Active [...] 1 TABLET BY MOUTH DAILY Quantity: 90 ESTER ORDONEZ M.D.NDA * Start : 09-Oct-2013 Active Rosuvastatin Calcium 10 MG Oral Tablet Take one tablet daily * Quantity: 90 Refills: 1 ELMIRA ORDONEZ M.D. * Start : 23-Feb-2019 Active amLODIPine Besylate 2.5 MG Oral Tablet TAKE 1 TABLET BY MOUTH DAILY AT BEDTIME * Quantity: 90 Refills: 1 ESTER ORDONEZ M.D.NDA * Start : 06-Oct-2019 [...] ORDONEZ M.D. * Start : 06-Oct-2019 Active Pxvgo-3-ckin Ethyl Esters 1 GM Oral Capsule TAKE [...] G0204 Date: 05-Dec-2019 [place] [address] Date: 05-Dec-2019 [place] Bone Density DXA Dual Energy 16208 Date: 05-Dec-2019 History of Hysterectomy Completed History of Oophorectomy - Bilat (Removal Of Both Ovaries) La paroscopic Completed History of Cholecystectomy Completed History of Wrist Surgery Completed History of Knee Surgery Completed Immunization Name Dates Details Influenza on: 10-Jun-2011 Hepatitis A on: 19-Nov-2011 Fluzone INJ Lot #: [id number] on: 26-May-2013 Zoster (Zostavax) Lot #: [id number] on: 04-Dec-2014 Tdap Lot #: [id number] on: 07-Jan-2015 Fluzone Quadrivalent 0.5 ML Intramuscula r Suspension Lot #: [id number] on: 01-Jun-2017 Influenza on: 09-Jun-2019 Pneumococcal polysaccharide vaccine, 23 valent Lot #: [id number] on: 06-Oct-2019 Family History Name Dates Details Family history of Hypertension (V17.49) Status: Active Name Dates Details Family history of Cirrhosis Status: Active Family history of alcoholism (V17.0, Z81 .1) Status: Active Social History Name Dates Details - Status: Name Dates Details Never smoked tobacco (finding) Vital Signs Date Test Result Details No Known Vitals to report Results Date Description Value Details Results not documented Plan of Care Name Dates Details Planned Observations Planned Goals not documented Planned Encounters Appointment; MARI KOVACS M.D. On: 21-Dec-2019 13:30 Appointment; ELMIRA ORDONEZ M.D. On: 19-Jan-2020 9:00 Interventions Provided Labs/Procedures/Imaging* Tobacco Use Screening; Done: 15 Dec 2019 Follow-ups/Referrals* Cardiology Referral; Done: 15 Dec 2019 Instructions Name Dates Details Instructions [...] Diagnosis: Problem not documented On: 04-Dec-2019 15:45 Appointment; BESSIE PÉREZ M .D. Encounter Diagnosis: Problem not documented On: 15-Dec-2019 9:00
--- OUTSIDE RECORDS SUMMARY | 2020-03-19 13:18 | XMS REPORT | Summary of Care ---
Author Author RACHAEL Bloom R.N. Organization Unknown Address Unknown Phone Unavailable Care Team Providers Care Digital Sales Manager Name Role Phone JOSÉ LUIS Castellanos, ELMIRA Unavailable Unavailable BETO Castellanos, BESSIE Unavailable Unavailab nadege ORDONEZ MD [place], ELMIRA VELASCO Unavailable Unavailable ALISSA SHELTON, LUIS ANTONIO Vu Unavailable Unavailable LEIGH SHELTON [place], FAITH Alvarado Unavailable Unavailable ASHA DORSEY, ANGELO [...] (V76.51, Z12. 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 2) Status: Active BOM (bilateral otitis media) (382.9, H66 .93) Status: Active Hyperlipidemia (272.4, E78.5) Status: Active [...] impairment of memory (V49.89, Z78.9) Status: Active Depression screen (V79.0, Z13.31) Status: Active At low risk for fall (V49.89, Z91.81) Status: Active Mixed hyperlipidemia (272.2, E78.2) Status: [...] Status: Active Postmenopausal (V49.81, Z78.0) Status: Active Elevated hemoglobin A1c (790.29, R73.09) Status: Active BMI 40.0-44.9, adult (V85.41, Z68.41) Status: Active Essential (primary) hypertension (401.9, I10) Status: Active H/O mixed hyperlipidemia (V12.29, Z86.39 ) Status: Resolved Heart murmur (785.2, R01.1) Status: Active Medications Name Dates Details Losartan Potassium-HCTZ 100-25 MG Oral T ablet TAKE 1 TABLET BY MOUTH DAILY Quantity: 90 ELMIRA ORDONEZ M.D. * Start : 09-Oct-2013 [...] ORDONEZ M.D. * Start : 06-Oct-2019 Active Sosdh-4-nvzm Ethyl Esters 1 GM Oral Capsule TAKE 2 CAPSULES BY MOUTH TWICE A DAY * Quantity: 120 Refills: 3 ESTER ORDONEZ M.D.NDA * Start : 04-Dec-2019 Active Allergies and [...] G0204 Date: 05-Dec-2019 [place] [address] Date: 05-Dec-2019 [place] Bone Density DXA Dual Energy 81755 Date: 05-Dec-2019 History of Hysterectomy Completed History of Oophorectomy - Bilat (Removal Of Both Ovaries) La paroscopic Completed History of Cholecystectomy Completed History of Wrist Surgery Completed History of Knee Surgery Completed Immunization Name Dates Details Influenza on: 10-Jun-2011 Hepatitis A on: 19-Nov-2011 Fluzone INJ Lot #: [id number] on: 26-May-2013 Zoster (Zostavax) Lot #: [id number] on: 04-Dec-2014 Tdap Lot #: [id number] on: 07-Jan-2015 Fluzone Quadrivalent 0.5 ML Intramuscula r Suspension Lot #: [id number] on: 01-Jun-2017 Influenza on: 09-Jun-2019 Pneumococcal polysaccharide vaccine, 23 valent Lot #: [id number] on: 06-Oct-2019 Family History Name Dates Details Family history of Hypertension (V17.49) Status: Active Name Dates Details Family history of Cirrhosis Status: Active Family history of alcoholism (V17.0, Z81 .1) Status: Active Social History Name Dates Details - Status: Name Dates Details Never smoked tobacco (finding) Vital Signs Date Test Result Details 15-Dec-20199:17 Systolic blood pressure 133 mm[Hg] Status: Comments : Location: LUE; Position: Sitting Diastolic blood pressure 81 mm[Hg] Status: Comment s: Location: LUE; Position: Sitting Body height 61 in Status: Weight 217 lb Status: Body mass index (BMI) [Ratio] 41 kg/m2 Status: Body surface area Derived from formula 1.96 m2 S tatus: Body temperature 97.3 f Status: Heart Rate 66 /min Status: Comments: Lo cation: L Brachial Artery; Results Date Description Value Details Results not documented Plan of Care Name Dates Details Planned Observations Planned Goals not documented Planned Encounters Appointment; MARI KOVACS M.D. On: 21-Dec-2019 13:30 Appointment; ELMIRA ORDONEZ M.D. On: 19-Jan-2020 9:00 Interventions Provided Labs/Procedures/Imaging* Tobacco Use Screening; Done: 15 Dec 2019 Follow-ups/Referrals* Cardiology Referral; Done: 15 Dec 2019 Plan* 1. Mixed hyperlipidemia: * Currently taking rosuvastatin 10 mg daily, sometimes non complaint. * She has taken in the past fenofibrate which was discontinued when experience facial erythema. * Start vascepa 1 bid and check carotid dopplers and lipid in 1M * 2. Hypertension: well controlled on losartan/HCTZ 100-25 mg daily and amlodipine 2.5 mg daily * 3. Murmur: benign, TTE reviewed Instructions Name Dates Details Instructions not documented [...] Problem not documented On: 06-Oct-2019 14:15 Appointment; [facility] [place] Encounter Diagnosis: Problem not documented On: 25-Oct-2019 13:00 Appointment; ELMIRA ORDONEZ M.D. Encounter Diagnosis: Problem not documented On: 04-Dec-2019 15:45 Appointment; BESSIE PÉREZ M .D. Encounter Diagnosis: Problem not documented On: 15-Dec-2019 9:00
--- OUTSIDE RECORDS SUMMARY | 2020-03-19 13:18 | XMS REPORT | Summary of Care ---
Author RACHAEL Connolly Organization Unknown Address Unknown Phone Unavailable Care Team Providers Care Dye Jig Operator Name Role Phone JOSÉ LUIS Castellanos, ELMIRA Unavailable Unavailable BETO Castellanos, SERAFIN Unavailable Unavailab Saúl Nichole Unavailable Unavailable JOSÉ LUIS SHELTON CT, ELMIRA VELASOC Unavailable Unavailable ALISSA SHELTON, LUIS ANTONIO Vu Unavailable Unavailable LEIGH SHELTON CT, FAITH Alvarado Unavailable Unavailable ASHA ALONSO-Jazz, ANGELO Maza Unavailable Unavailable JASMYNE SHELTON, SANJUANA Unavailable Unavailable Beto SHELTON, Serafin Unavailable Unavailable Unavailable Unavailable Functional Status Name [...] (V76.51, Z12. 11) Status: Active Need for ywvgezfcsc-fxtmzsa-ruztgsvld (T dap) vaccine (V06.1, Z23) Status: Active [...] Status: Active Influenza vaccination declined by roc peñaloza (V64.06, Z28.21) Status: Active Suspected sleep apnea [...] ORDONEZ M.D.NDA * Start : 06-Oct-2019 Active Ayczk-7-etua Ethyl Esters 1 GM Oral Capsule TAKE 2 CAPSULES BY MOUTH TWICE A DAY * Quantity: 120 Refills: 3 ELMIRA ORDONEZ M.D. * Start : 04-Dec-2019 Active Vascepa 1 GM Oral Capsule TAKE 1 CAPSULE TWICE DAILY * Quantity: 180 Refills: 0 SERAFIN PÉREZ M.D. * Start : 15-Dec-2019 Active Allergies and Adverse Reactions Name Dates [...] WITH REFLEX TO DIRECT LDL Date: 05-Dec-2019 [Q] LIPID PANEL WITH REFLEX TO DIRECT LDL Date: 15-Dec-2019 [QL] CMP W/EGFR Date: 15-Dec-2019 [N] Carotid Bilateral [id number] Date: 15-Dec-2019 MA Digital Mammo DX Leonid G0204 Date: 05-Dec-2019 [place] [address] Date: 05-Dec-2019 MA Bone Density DXA Dual Energy 98145 Date: 05-Dec-2019 History of Hysterectomy Completed History of Oophorectomy - Bilat (Removal Of Both Ovaries) La paroscopic Completed History of Cholecystectomy Completed History of Wrist Surgery Completed History of Knee Surgery Completed Immunization Name Dates Details Influenza on: 10-Jun-2011 Hepatitis A on: 19-Nov-2011 Fluzone INJ Lot #: [id number] on: 26-May-2013 Zoster (Zostavax) Lot #: [id number] on: 04-Dec-2014 Tdap Lot #: [id number] on: 07-Jan-2015 Fluzone Quadrivalent 0.5 ML Intramuscula r Suspension Lot #: [id number] on: 01-Jun-2017 Influenza on: 09-Jun-2019 Pneumococcal polysaccharide vaccine, 23 valent Lot #: [id number] on: 06-Oct-2019 Family History Name Dates Details [...] Care Name Dates Details Planned Observations [N] Carotid Bilateral 82290 On: 16-Mar-2020 Intent Planned Goals not documented Planned Encounters Appointment; ELMIRA ORDONEZ M.D. On: 19-Jan-2020 9:00 Appointment; MARI KOVACS M.D. On: 22-Jan-2020 10:00 Appointment; [facility], ECHO On: 18-Mar-2020 15:00 Appointment; SERAFIN PÉREZ M .D. On: 22-Mar-2020 13:00 Instructions Name Dates Details Instructions not documented [...] Problem not documented On: 06-Oct-2019 14:15 Appointment; [place], ECHO Encounter Diagnosis: Problem not documented On: 25-Oct-2019 13:00 Appointment; ELMIRA ORDONEZ M.D. Encounter Diagnosis: Problem not documented On: 04-Dec-2019 15:45 Appointment; SERAFIN PÉREZ M .D. Encounter Diagnosis: Problem not documented On: 15-Dec-2019 9:00
--- OUTSIDE RECORDS SUMMARY | 2020-03-19 13:18 | XMS REPORT | Summary of Care ---
Author Author RACHAEL ORDONEZ M.D. Organization Unknown Address Unknown Phone Unavailable Care Team Providers Care Ordnance Corps Officer Name Role Phone JOSÉ LUIS Castellanos, ELMIRA Unavailable Unavailable BETO Castellanos, SERAFIN Unavailable Unavailab nadege ORDONEZ MD [place], ELMIRA VELASCO Unavailable Unavailable ALISSA SHELTON, LUIS ANTONIO Vu Unavailable Unavailable LEIGH SHELTON [place], FAITH Alvarado Unavailable Unavailable ASHA ALONSO-Jazz, ANGELO [...] (V76.51, Z12. 11) Status: Active Need for neygjdjlcv-rsgevre-ugmykjrpj (T dap) vaccine (V06.1, Z23) Status: Active [...] ORDONEZ M.D.NDA * Start : 06-Oct-2019 Active Qigwp-5-kche Ethyl Esters 1 GM Oral Capsule TAKE 2 CAPSULES BY MOUTH TWICE A DAY * Quantity: 120 Refills: 3 ELMIRA ORDONEZ M.D. * Start : 04-Dec-2019 Active Vascepa 1 GM Oral Capsule TAKE 1 CAPSULE TWICE DAILY * Quantity: 180 Refills: 0 BETO Castellanos ESRAFIN * Start : 15-Dec-2019 Active Allergies and [...] Date: 15-Dec-2019 [QL] CMP W/EGFR Date: 15-Dec-2019 MA Digital Mammo DX Leonid G0204 Date: 05-Dec-2019 [place] [address] Date: 05-Dec-2019 MA Bone Density DXA Dual Energy 16437 Date: 05-Dec-2019 [N] Carotid Bilateral 69159 Date: 15-Dec-2019 History of Hysterectomy Completed History of Oophorectomy - Bilat (Removal Of Both Ovaries) La paroscopic Completed History of Cholecystectomy Completed History of Wrist Surgery Completed History of Knee Surgery Completed Immunization Name Dates Details Influenza on: 10-Jun-2011 Hepatitis A on: 19-Nov-2011 Fluzone INJ Lot #: [id number] on: 26-May-2013 Zoster (Zostavax) Lot #: [id number] on: 04-Dec-2014 Tdap Lot #: [id number] on: 07-Jan-2015 Fluzone Quadrivalent 0.5 ML Intramuscula r Suspension Lot #: [id number] on: 01-Jun-2017 Influenza on: 09-Jun-2019 Pneumococcal polysaccharide vaccine, 23 valent Lot #: [id number] on: 06-Oct-2019 Family History Name Dates Details [...] TO DIRECT LDL On: 15-Jan-20 20 Intent MA Digital Mammo DX Leonid G0204 On: 05-Dec-2019 [place] [address] On: 05-Dec-2019 Intent MA Bone Density DXA Dual Energy 13244 On: 05-Dec-2019 Intent Planned Goals not documented Planned Encounters Appointment; ELMIRA ORDONEZ M.D. On: 19-Jan-2020 9:00 Appointment; MARI KOVACS M.D. On: 22-Jan-2020 10:00 Appointment; GORGE, ECHO On: 18-Mar-2020 15:00 Appointment; SERAFIN PÉREZ M .D. On: 22-Mar-2020 13:00 Interventions Provided Medication Changes* Cholestyramine 4 GM Oral Packet - Start * Shingrix 50 MCG Intramuscular Suspension Reconstituted - Start Labs/Procedures/Imaging* [N] 2D Echo complete, with Doppler [id number]; Done: 25 Oct 2019 * Tobacco Use Screening; Done: [...] Patient referred to opthalmology for ongoing care as per her request * - Discussed optimal eyelid care. * Heart murmur RUSB: Echocardiogram ordered * Colon cancer screening: Patient encouraged to schedule with gastroenterology * Labs ordered for monitoring HTN, HLD, nephropathy screening, screening for thyroid disorders and hepatitis C: * - CMP w/eGFR, TSH w/reflex to FT4, Lipid panel, hepatitis C antibody, and random urine total protein creatinine ratio. * Immunizations: * - Pneumovax- 23 vaccine administered in office today. * - Shingrix vaccine prescription provided. Patient advised to have vaccine administered at a local pharmacy. * Class 3 obesity with BMI of 41.17: Diet and exercise counseling * Depression Screening performed: Negative with a PHQ-9 score of 0 * Fall risk assessment performed: Low with no falls in the past year * Mini-cognitive examination performed: Negative for cognitive impairment with a score of 5/5 on clock and word recall * Return to clinic in 1 month for follow up evaluation of HTN. * Call or return to clinic sooner if new symptoms or medication intolerance. Instructions Name Dates Details Instructions not documented [...]
--- OUTSIDE RECORDS SUMMARY | 2020-03-19 13:18 | XMS REPORT | Summary of Care ---
Author Author RACHAEL ORDONEZ M.D. Organization Unknown Address Unknown Phone Unavailable Care Team Providers Care Heating Repair Technician Name Role Phone JOSÉ LUIS Castellanos, ELMIRA Unavailable Unavailable BETO Castellanos, SERAFIN Unavailable Unavailab nadege ORDONEZ MD [place], ELMIRA VELASCO Unavailable Unavailable JASMYNE SHELTON, SANJUANA Unavailable Unavailable ALISSA SHELTON, LUIS ANTONIO Vu Unavailable Unavailable LEIGH SHELTON [place], FAITH Alvarado Unavailable Unavailable ASHA VIDEO GAME REPAIR TECHNICIAN-C, ANGLEO Maza Unavailable Unavailable Beto SHELTON, Serafin Unavailable Unavailable [...] (V76.51, Z12. 11) Status: Active Need for edhtwyygil-wpauhoi-wsdwpwuiq (T dap) vaccine (V06.1, Z23) Status: Active [...] unspec ified type (373.00, H01.005) Status: Active Need for 23-polyvalent pneumococcal poly saccharide vaccine (V03.82, Z23) Status: Active Nephropathy screen (V81.5, Z13.89) Status: Active Need for shingles vaccine (V04.89, Z23) Status: Active Encounter for mini-mental status examina tion Status: Active No impairment of memory (V49.89, Z78.9) Status: Active Depression screen (V79.0, Z13.31) Status: Active At low risk for fall (V49.89, Z91.81) Status: Active Sigmoid diverticulosis (562.10, K57.30) Status: Active Low serum HDL (272.9, R74.8) Status: Active On potassium wasting diuretic therapy (V 58.69, Z79.899) Status: Active Abnormal mammogram of left breast (793.8 0, R92.8) Status: Active Personal history of colonic polyps (V12. 72, Z86.010) Status: Active Breast cancer screening (V76.10, Z12.39) Status: Active Encounter for osteoporosis screening in [...] Resolved Heart murmur (785.2, R01.1) Status: Active Encounter for monitoring statin therapy (V58.83, Z51.81) Status: Active Mixed hyperlipidemia (272.2, E78.2) Status: Active Colon cancer screening (V76.51, Z12.11) Status: Active Chronic diarrhea (787.91, K52.9) Status: Active Chronic GERD (530.81, K21.9) Status: Active Medications Name Dates Details Losartan [...] ORDONEZ M.D. * Start : 06-Oct-2019 Active Vqdxw-5-hdof Ethyl Esters 1 GM Oral Capsule TAKE 2 CAPSULES BY MOUTH TWICE A DAY * Quantity: 120 Refills: 3 ELMIRA ORDONEZ M.D. * Start : 04-Dec-2019 Active Vascepa 1 GM Oral Capsule TAKE 1 CAPSULE TWICE DAILY * Quantity: 180 Refills: 0 SERAFIN PÉREZ M.D. * Start : 15-Dec-2019 Active Cholestyramine 4 GM Oral Packet MIX ONE PACKET AND TAKE BY MOUTH ONCE A DAY IN THE MORNING * Quantity: 30 Refills: 3 ELMIRA ORDONEZ M.D. * Start : 06-Oct-2019 Active Shingrix 50 MCG Intramuscular Suspension Reconstituted INJECT 0.5 ML IM, please administer vaccine series per protocol * Quantity: 1 Refills: 0 ELMIRA ORDONEZ M.D. * Start : 06-Oct-2019 Active Allergies and [...] G0204 Date: 05-Dec-2019 [place] [address] Date: 05-Dec-2019 MA Bone Density DXA Dual Energy 54845 Date: 05-Dec-2019 [N] Carotid Bilateral 66478 Date: 15-Dec-2019 History of Hysterectomy Completed History of Oophorectomy - Bilat (Removal Of Both Ovaries) La paroscopic Completed History of Cholecystectomy Completed History of Wrist Surgery Completed History of Knee Surgery Completed Immunization Name Dates Details Influenza on: 10-Jun-2011 Hepatitis A on: 19-Nov-2011 Fluzone INJ Lot #: [id number] on: 26-May-2013 Zoster (Zostavax) Lot #: [id number] on: 04-Dec-2014 Tdap Lot #: [id number] on: 07-Jan-2015 Fluzone Quadrivalent 0.5 ML Intramuscula r Suspension Lot #: [id number] on: 01-Jun-2017 Influenza on: 09-Jun-2019 Pneumococcal polysaccharide vaccine, 23 valent Lot #: [id number] on: 06-Oct-2019 Family History Name Dates Details Family history of Hypertension (V17.49) Status: Active Name Dates Details Family history of Cirrhosis Status: Active Family history of alcoholism (V17.0, Z81 .1) Status: Active Social History Name Dates Details - Status: Name Dates Details Never smoked tobacco (finding) Vital Signs Date Test Result Details 19-Ref-27318:17 Systolic blood pressure 126 mm[Hg] Status: Diastolic blood pressure 77 mm[Hg] Status: Body height 61 in Status: Weight 217 lb Status: Body mass index (BMI) [Ratio] 41 kg/m2 Status: Body surface area Derived from formula 1.96 m2 S tatus: Results Date Description Value Details Results not documented Plan of Care Name Dates Details Planned Observations Planned Goals not documented Planned Encounters Appointment; MARI KOVACS M.D. On: 22-Jan-2020 10:00 Appointment; MILLIE PENNINGTON On: 18-Mar-2020 15:00 Appointment; SERAFIN PÉREZ M .D. On: 22-Mar-2020 13:00 Interventions Provided Plan* Reviewed and discussed lab results dated 01/16/20. * Labs show significant improvement of hypertriglyceridemia compared to previous lipid panel dated 11/29/19. * Mixed hyperlipidemia, Hypertriglyceridemia: * - Continue Rosuvastatin 10 mg daily * - INCREASE to take as prescribed Lovaza 1 g 2 capsules BID. * - Follow-up lab in 2 months: Lipid panel * - Continue diet and exercise to achieve favorable BMI and improve triglycerides. * Continue current medications without changes: * Hypertension: * - Amlodipine 2.5 mg daily at bedtime * - Losartan Potassium- HCTZ 100- 25 mg daily * Return to clinic in 6 months for reevaluation. Patient to be scheduled. * Reminded patient to have seasonal influenza vaccine administered 04/2020 when available * Further recommendations pending results of above ordered lab (lipid panel) to be completed in 2 months. Lab requisition mailed to patient's home. Instructions Name Dates Details Instructions not documented Encounters Appointment; ELMIRA ORDONEZ M.D. Encounter Diagnosis: Problem [...] not documented On: 06-Oct-2019 14:15 Appointment; GORGE, ECHO Encounter Diagnosis: Problem not documented On: 25-Oct-2019 13:00 Appointment; ELMIRA ORDONEZ M.D. Encounter Diagnosis: Problem not documented On: 04-Dec-2019 15:45 Appointment; SERAFIN PÉREZ M .D. Encounter Diagnosis: Problem not documented On: 15-Dec-2019 9:00 Appointment; ELMIRA ORDONEZ M.D. Encounter Diagnosis: Problem not documented On: 19-Jan-2020 9:30
--- OUTSIDE RECORDS SUMMARY | 2020-03-19 13:18 | XMS REPORT | Summary of Care ---
Author Author RACHAEL ORDONEZ M.D. Organization Unknown Address Unknown Phone Unavailable Care Team Providers Care Meeting/Event Planner Name Role Phone JOSÉ LUIS Castellanos, ELMIRA Unavailable Unavailable BETO Castellanos, SERAFIN Unavailable Unavailab nadege ORDONEZ MD [place], ELMIRA VELASCO Unavailable Unavailable JASMYNE SHELTON, SANJUANA Unavailable Unavailable ALISSA SHELTON, LUIS ANTONIO Vu Unavailable Unavailable LEIGH SHELTON [place], FAITH Alvarado Unavailable Unavailable ASHA FITTING ROOM INSPECTOR-C, ANGELO Maza Unavailable Unavailable Beto SHELTON, Serafin Unavailable [...] (V76.51, Z12. 11) Status: Active Need for mwkpaoecsy-kzdsceh-rdxuzcmin (T dap) vaccine (V06.1, Z23) Status: Active [...] ORDONEZ M.D.NDA * Start : 06-Oct-2019 Active Rlspo-4-vfxa Ethyl Esters 1 GM Oral Capsule TAKE 2 CAPSULES BY MOUTH TWICE A DAY * Quantity: 120 Refills: 3 ESTER ORDONEZ M.D.NDA * Start : 04-Dec-2019 Active Vascepa 1 GM Oral Capsule TAKE 1 CAPSULE TWICE DAILY * Quantity: 180 Refills: 0 KARI PÉREZ M.D.STANTINOS * Start : 15-Dec-2019 Active Cholestyramine 4 GM Oral Packet MIX ONE PACKET AND TAKE BY MOUTH ONCE A DAY IN THE MORNING * Quantity: 30 Refills: 3 ESTER ORDONEZ M.D.NDA * Start : 06-Oct-2019 Active Shingrix 50 MCG Intramuscular Suspension Reconstituted INJECT 0.5 ML IM, please administer vaccine series per protocol * Quantity: 1 Refills: 0 JOSÉ LUIS Castellanos ELMIRA * Start : 06-Oct-2019 Active Allergies [...] G0204 Date: 05-Dec-2019 [place] [address] Date: 05-Dec-2019 MA Bone Density DXA Dual Energy 80058 Date: 05-Dec-2019 [N] Carotid Bilateral 31810 Date: 15-Dec-2019 History of Hysterectomy Completed History of Oophorectomy - Bilat (Removal Of Both Ovaries) La paroscopic Completed History of Cholecystectomy Completed History of Wrist Surgery Completed History of Knee Surgery Completed Immunization Name Dates Details Influenza on: 10-Jun-2011 Hepatitis A on: 19-Nov-2011 Fluzone INJ Lot #: [id number] on: 26-May-2013 Zoster (Zostavax) Lot #: [id number] on: 04-Dec-2014 Tdap Lot #: [id number] on: 07-Jan-2015 Fluzone Quadrivalent 0.5 ML Intramuscula r Suspension Lot #: [id number] on: 01-Jun-2017 Influenza on: 09-Jun-2019 Pneumococcal polysaccharide vaccine, 23 valent Lot #: [id number] on: 06-Oct-2019 Family History Name Dates Details Family history of Hypertension (V17.49) Status: Active Name Dates Details Family history of Cirrhosis Status: Active Family history of alcoholism (V17.0, Z81 .1) Status: Active Social History Name Dates Details - Status: Name Dates Details Never smoked tobacco (finding) Vital Signs Date Test Result Details [id number]-[id number] Systolic blood pressure 126 mm[Hg] Status: Diastolic [...] MARI KOVACS M.D. On: 22-Jan-2020 10:00 Appointment; STEPHON-, ECHO On: 18-Mar-2020 15:00 Appointment; SERAFIN PÉREZ [...] Problem not documented On: 06-Oct-2019 14:15 Appointment; STEPHON-, ECHO Encounter Diagnosis: Problem not documented On: 25-Oct-2019 13:00 Appointment; ELMIRA ORDONEZ M.D. Encounter Diagnosis: Problem not documented On: 04-Dec-2019 15:45 Appointment; SERAFIN ÉPREZ M .D. Encounter Diagnosis: Problem not documented On: 15-Dec-2019 9:00 Appointment; ELMIRA ORDONEZ M.D. Encounter Diagnosis: Problem not documented On: 19-Jan-2020 9:30
--- OUTSIDE RECORDS SUMMARY | 2020-03-19 13:18 | XMS REPORT | Summary of Care ---
Author Author RACHAEL PÉREZ M.D. Unknown Address Unknown Phone Unavailable Care Team Providers Care Pigs Feet Cleaner Name Role Phone JOSÉ LUIS Castellanos, ELMIRA [...] (V76.51, Z12. 11) Status: Active Need for mrsdtznfyt-dboppek-ifdaqlhwc (T dap) vaccine (V06.1, Z23) Status: Active [...] ORDONEZ M.D. * Start : 06-Oct-2019 Active Xwdrt-2-tojg Ethyl Esters 1 GM Oral Capsule TAKE [...] G0204 Date: 05-Dec-2019 [place] [address] Date: 05-Dec-2019 MA Bone Density DXA Dual Energy 96190 Date: 05-Dec-2019 History of Hysterectomy Completed History of Oophorectomy - Bilat (Removal Of Both Ovaries) La paroscopic Completed History of Cholecystectomy Completed History of Wrist Surgery Completed History of Knee Surgery Completed Immunization Name Dates Details Influenza on: 10-Jun-2011 Hepatitis A on: 19-Nov-2011 Fluzone INJ Lot #: [id number] on: 26-May-2013 Zoster (Zostavax) Lot #: [id number] on: 04-Dec-2014 Tdap Lot #: [id number] on: 07-Jan-2015 Fluzone Quadrivalent 0.5 ML Intramuscula r Suspension Lot #: [id number] on: 01-Jun-2017 Influenza on: 09-Jun-2019 Pneumococcal polysaccharide vaccine, 23 valent Lot #: [id number] on: 06-Oct-2019 Family History Name Dates Details [...] Tobacco Use Screening; Done: 15 Dec 2019 Instructions Name Dates [...]
--- OUTSIDE RECORDS SUMMARY | 2020-03-19 13:18 | XMS REPORT | Summary of Care ---
Author Author JOSÉ LUIS Castellanos, RACHAEL Balderas Organization Unknown Address Unknown Phone Unavailable Care Team Providers Care Nonprofit Fundraiser Name Role Phone JOSÉ LUIS Castellanos, ELMIRA Unavailable Unavailable JOSÉ LUIS SHELTON [place], ELMIRA VELASCO Unavailable Unavailable JASMYNE SHELTON, SANJUANA Unavailable Unavailable ALISSA SHELTON, LUIS ANTONIO Vu Unavailable Unavailable LEIGH SHELTON NE, FAITH Alvarado Unavailable Unavailable ASHA ALONSO-C, ANGELO Maza Unavailable Unavailable Pattie SHELTON, Serafin Unavailable Unavailable Unavailable Unavailable Functional [...] (V76.51, Z12. 11) Status: Active Need for bkdyqyiwbp-qbeatbo-pxxhiwvxv (T dap) vaccine (V06.1, Z23) Status: Active [...] Active Sigmoid diverticulosis (562.10, K57.30) Status: Active Abnormal mammogram of left breast (793.8 0, R92.8) Status: Active Personal history of colonic polyps (V12. 72, Z86.010) Status: Active Breast cancer screening (V76.10, Z12.39) Status: Active Encounter for osteoporosis screening in asymptomatic postmenopausal patient (V82.81, Z13.820) Status: Active History of Prediabetes (790.29, R73.03) [...] BMI 40.0-44.9, adult (V85.41, Z68.41) Status: Active H/O mixed hyperlipidemia (V12.29, Z86.39 ) Status: Resolved Heart murmur (785.2, R01.1) Status: Active Colon cancer screening (V76.51, Z12.11) Status: Active Chronic diarrhea (787.91, K52.9) Status: Active Chronic GERD (530.81, K21.9) Status: Active On potassium wasting diuretic therapy (V 58.69, Z79.899) Status: Active Mixed hyperlipidemia (272.2, E78.2) Status: Active Low serum HDL (272.9, R74.8) Status: Active Essential (primary) hypertension (401.9, I10) Status: Active Encounter for monitoring statin therapy (V58.83, Z51.81) Status: Active Class 3 severe obesity due [...] ORDONEZ M.D.NDA * Start : 06-Oct-2019 Active Hvldw-4-umki Ethyl Esters 1 GM Oral Capsule TAKE 2 CAPSULES BY MOUTH TWICE A DAY * Quantity: 120 Refills: 3 JOSÉ LUIS Castellanos, ELMIRA * Start : 04-Dec-2019 Active Cholestyramine 4 GM Oral Packet MIX [...] G0204 Date: 05-Dec-2019 [place] [address] Date: 05-Dec-2019 MA Bone Density DXA Dual Energy 97567 Date: 05-Dec-2019 [N] Carotid Bilateral 50909 Date: 15-Dec-2019 History of Hysterectomy Completed History of Oophorectomy - Bilat (Removal Of Both Ovaries) La paroscopic Completed History of Cholecystectomy Completed History of Wrist Surgery Completed History of Knee Surgery Completed Immunization Name Dates Details Influenza on: 10-Jun-2011 Hepatitis A on: 19-Nov-2011 Fluzone INJ Lot #: [id number] on: 26-May-2013 Zoster (Zostavax) Lot #: [id number] on: 04-Dec-2014 Tdap Lot #: [id number] on: 07-Jan-2015 Fluzone Quadrivalent 0.5 ML Intramuscula r Suspension Lot #: [id number] on: 01-Jun-2017 Influenza on: 09-Jun-2019 Pneumococcal polysaccharide vaccine, 23 valent Lot #: [id number] on: 06-Oct-2019 Family History Name Dates Details Family history of Hypertension (V17.49) Status: Active Name Dates Details Family history of Cirrhosis Status: Active Family history of alcoholism (V17.0, Z81 .1) Status: Active Social History Name Dates Details - Status: Name Dates Details Never smoked tobacco (finding) Vital Signs Date Test Result Details 11-[id number]:17 Systolic blood pressure 126 mm[Hg] Status: Diastolic [...] and discussed lab results dated 01/16/20. * Significant improvement of both triglycerides and cholesterol compared to 11/29/19. * Triglycerides not yet to goal but patient also not taking the Lovaza as 2 g twice daily as prescribed * Plan: * - Continue Rosuvastatin 10 mg daily * - INCREASE Lovaza by taking 2 capsules BID rather than 1 twice daily. * - Follow-up lab in 2 months: Lipid panel and CMP as ordered by . * - Continue diet and exercise to achieve favorable BMI and further improve lipids * Continue other current medications as follows * Hypertension: * - Amlodipine 2.5 mg daily at bedtime * - Losartan Potassium- HCTZ 100- 25 mg daily * Return to clinic in 6 months for reevaluation of chronic medical conditions. * Patient to be scheduled 07/2020. * Reminded patient to have seasonal influenza vaccine administered 04/2020 when available * Further recommendations pending results of above ordered lab (lipid panel and CMP) to be completed in 2 months. Lab [...]
[2020-03-19] MEDS ORDERED: POTASSIUM CHLORIDE 20 MEQ TAB CR PO STA (13:32)
[2020-03-19] MEDS ORDERED: AMLODIPINE BESYLATE 5 MG TAB PO ONE (13:45)
== END 2020-03-19 14:39 | disposition home or self-care (01) ==
LOC: ER 13:14
DX: I10 Essential (primary) hypertension (principal); E78.5 Hyperlipidemia, unspecified; E66.9 Obesity, unspecified
CPT/HCPCS: 36415; 80053; 81001; 85025; 93005; 99284

== ENCOUNTER 2020-04-01 13:59 | Emergency (ER) | payer MEDICARE, OTHER ==
[~2020-04-01] VITALS: Ht 154.9 cm; Wt 98.0 kg
--- OUTSIDE RECORDS SUMMARY | 2020-04-01 14:33 | XMS REPORT | Summary of Care ---
Author Author RACHAEL Villalobos LVN Organization Unknown Address Unknown Phone Unavailable Care Team Providers Care Dub Room Engineer Name Role Phone JOSÉ LUIS Castellanos, ELMIRA Unavailable Unavailable LUZ MARINA WARNER, LINDSAY Unavailable Unavailable JOSÉ LUIS [place], ELMIRA VELASCO Unavailable Unavailable LUZ MARINA APPLIED MATHEMATICIAN, LINDSAY Unavailable Unavailable JASMYNE SHELTON, SANJUANA Unavailable Unavailable ALISSA SHELTON, LUIS ANTONIO Vu Unavailable Unavailable LEIGH [place], FAITH Alvarado Unavailable Unavailable ASHA APPLIED MATHEMATICIAN-C, ANGELO Maza Unavailable Unavailable Pattie SHELTON, Serafin [...] (V76.51, Z12. 11) Status: Active Need for texneywqrx-dcejeei-gmnwxezpx (T dap) vaccine (V06.1, Z23) Status: Active [...] Elevated hemoglobin A1c (790.29, R73.09) Status: Active H/O mixed hyperlipidemia (V12.29, Z86.39 ) Status: Resolved Heart murmur (785.2, R01.1) Status: Active Colon cancer screening (V76.51, Z12.11) Status: Active Chronic diarrhea (787.91, K52.9) Status: Active Chronic GERD (530.81, K21.9) Status: Active On potassium wasting diuretic therapy (V 58.69, Z79.899) Status: Active Mixed hyperlipidemia (272.2, E78.2) Status: Active Low serum HDL (272.9, R74.8) Status: Active Encounter for monitoring statin therapy (V58.83, Z51.81) Status: Active Class 3 severe obesity due to excess mable ories without serious comorbidity with body mass index (BMI) of 40.0 to 44.9 in adult (278.01, E66.01) Status: Active Encounter for examination following jarred tment at [facility] (V67.9, Z09) Status: Active BMI 40.0-44.9, adult (V85.41, Z68.41) Status: Active Essential (primary) hypertension (401.9, I10) Status: Active Medications Name Dates Details Losartan Potassium-HCTZ 100-25 MG Oral T ablet TAKE 1 TABLET BY MOUTH DAILY Quantity: 90 ELMIRA ORDONEZ M.D. * Start : 09-Oct-2013 Active Rosuvastatin Calcium 10 MG Oral Tablet Take one tablet daily * Quantity: 90 Refills: 1 ELMIRA ORDONEZ M.D. * Start : 23-Feb-2019 Active amLODIPine Besylate 5 MG Oral Tablet TAKE 1 TABLET DAILY * Quantity: 90 Refills: 1 LINDSAY RAZA APRN * Start : 06-Oct-2019 Active Shingrix 50 MCG Intramuscular Suspension Reconstituted INJECT 0.5 ML IM, please administer vaccine series per protocol * Quantity: 1 Refills: 0 ELMIRA ORDONEZ M.D. * Start : 06-Oct-2019 Active Qqhav-1-tgoz Ethyl Esters 1 GM Oral Capsule TAKE [...] A on: 19-Nov-2011 Fluzone INJ Lot #: [id number] on: 26-May-2013 Zoster (Zostavax) Lot #: [id number] on: 04-Dec-2014 Tdap Lot #: [id number] on: 07-Jan-2015 Fluzone Quadrivalent 0.5 ML Intramuscula r Suspension Lot #: [id number] on: 01-Jun-2017 Influenza on: 09-Jun-2019 Pneumococcal polysaccharide vaccine, 23 valent Lot #: [id number] on: 06-Oct-2019 Family History Name Dates Details Family history of Hypertension (V17.49) Status: Active Name Dates Details Family history of Cirrhosis Status: Active Family history of alcoholism (V17.0, Z81 .1) Status: Active Social History Name Dates Details - Status: Name Dates Details Never smoked tobacco (finding) Vital Signs Date Test Result Details :09 Systolic blood pressure 111 mm[Hg] Status: Comments : Location: LUE; Position: Sitting Diastolic blood pressure 69 mm[Hg] Status: Comment s: Location: LUE; Position: Sitting Body height 61 in Status: Weight 216.3 lb Status: Body mass index (BMI) [Ratio] 40.87 kg/m2 Status: Body surface area Derived from formula 1.95 m2 S tatus: Body temperature 97.3 f Status: Comments: Me thod: Temporal Heart Rate 63 /min Status: Comments: Lo cation: L Radial; Respiratory rate 16 /min Status: Comments: Qu ality: Normal :05 Systolic blood pressure 155 mm[Hg] Status: Comments : Location: LUE; Position: Sitting Diastolic blood pressure 81 mm[Hg] Status: Comment s: Location: LUE; Position: Sitting Body height 61 in Status: Weight 216 lb Status: Body mass index (BMI) [Ratio] 40.81 kg/m2 Status: Body surface area Derived from formula 1.95 m2 S tatus: Body temperature 98.2 f Status: Comments: Me thod: Temporal Heart Rate 77 /min Status: Respiratory rate 16 /min Status: Physical Findings 0 Status: Comments: Pa in Scale Physical Findings 0 Status: Comments: Al cohol Screen - How many times in the past yr have you had 5 (for M) or 4 (for F) or 4 (for all > 65yrs) or more drinks in a day? Results Date Description Value Details Results not documented Plan of Care Name Dates Details Planned Observations Planned Goals not documented Planned Encounters Appointment; GORGE ECHO On: 29-Mar-2020 14:00 Appointment; SERAFIN PÉREZ M .D. On: 02-Apr-2020 12:00 Appointment; ELMIRA ORDONEZ M.D. On: 15-Jul-2020 9:30 Interventions Provided Labs/Procedures/Imaging* Tobacco Use Screening; Done: 27 Mar 2020 Plan* Cont. Losartan-HCTZ 100/25 mg and Amlodipine 5 mg * Low salt diet, increase exercise * Continue to monitor home BP - ensure cuff is the right size and use proper technique * F/u with PCP as planned Instructions Name Dates Details Instructions not documented [...] Diagnosis: Problem not documented On: 19-Jan-2020 9:30 Appointment; MILLIE PENNINGTON Encounter Diagnosis: Problem not documented On: 18-Mar-2020 15:00 Appointment; LINDSAY RAZA APRN Encounter Diagnosis: Problem not documented On: 20-Mar-2020 9:15 Appointment; LINDSAY RAZA APRN Encounter Diagnosis: Problem not documented On: 27-Mar-2020 8:00
--- OUTSIDE RECORDS SUMMARY | 2020-04-01 14:33 | XMS REPORT | Continuity of Care Document ---
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 Name Role Phone [facility] Unavailable Un available Problems Problem Status Onset Date Classification Date Reported Comments Source M25.562 - PAIN IN LEFT KNEE M17.9 - "OST Active 12/19/2015 [facility] 719.44 - JOINT PAIN-HAND Active 02/07/2015 [facility] UNK Active 0 01/02/2015 [facility] - PAIN NEC Active 01/02/2014 [facility] Vaccines Prophylactic Need Against Influenza Active 10/09/2013 [facility] Esophageal Reflux Active 10/09/2013 [facility] Tinea Cruris Active 10/09/2013 [facility] Hypertension Active 10/09/2013 [facility] Hyperlipidemia Active 10/09/2013 [facility] Taking Medication For A Long Time Active 10/09/2013 [facility] Medications Medication Details Route Status Patient Instructions Ordering Provider Order Date Source Losartan Potassium-HCTZ 100-25 MG Oral Tablet ; Start Date: 10/09/2013 (Active) Active 10/09/2013 [facility] AmLODIPine Besylate 5 MG Oral Tablet ; Start Date: 10/01/2013; End Date: (Active) Active 10/01/2013 [facility] Fenofibric Acid 135 MG Oral Capsule Delayed Release ; Start Date: 10/01/2013; End Date: (Active) Active 10/01/2013 [facility] NexIUM 40 MG Oral Capsule Delayed Release ; Start Date: 09/12/2013; End Date: (Active) Active 09/12/2013 [facility] Ranitidine HCl 300 MG Oral Tablet ; Start Date: 05/26/2013 (Active) Active 05/26/2013 [facility] Econazole Nitrate 1 % External Cream ; Start Date: 05/26/2013 (Active) Active 05/26/2013 [facility] AmLODIPine Besylate 5 MG Oral Tablet (Active) Active [facility] NexIUM 40 MG Oral Capsule [...] ultrasound, 11/28/2018 mammogram, and 10/24/2018 mammogram - [facility]. TECHNIQUE: Color flow and real-time ultrasound of [...] Diagnostic Imaging. Hung Lema M.D. cm/:01/29/2020 13:41:02 Veterinarian Poultry(s): Natalia Wiley [facility] letter sent: BI-RADS 3 Ultrasound BI-RADS: 3 Probably benign 01/29/2020 [facility] Breast Mammo Diag CHAD w spencer incl CAD MA BILATERAL DIGITAL DIAGNOSTIC MAMMOGRAM 3D/2D WITH CAD: 01/29/2020 CLINICAL: /R92.8. Current study was evaluated with a Computer Aided Detection (CAD) system. COMPARISON:Comparison is made to exams dated: 11/28/2018 mammogram and 10/24/2018 mammogram - [facility]. TECHNIQUE: Digital Breast Tomosynthesis was performed and [...] is recommended. This exam was interpreted at [id number] for [place], SL 15. Professional services are provided by the [facility] Division of Diagnostic Imaging. Hung Lema M.D., cm/penrad:01/29/2020 12:11:28 Veterinarian Poultry(s): RT Kelly(R)(M), [facility] Mammogram BI-RADS: 0 Indeterminate 01/29/2020 [facility] Bone Density DXA Dual Energy MA [...] for fracture. This exam was interpreted at [id number] for NICK Abdalla 15. Hung Lema M.D. cm/penrad:01/29/2020 11:27:19 Veterinarian Poultry(s): Livier LEGER(R)(M), [facility] 01/29/2020 [facility] [place] Breast Limited Uni US LIMITED ULTRASOUND OF LEFT BREAST: 11/28/2018 CLINICAL: /Callback. COMPARISON:Comparison is made to exams dated: 11/28/2018 mammogram and 10/24/2018 mammogram - [facility]. TECHNIQUE: Color flow and real-time ultrasound of [...] demonstrate stability.(05/30/2019) This exam was interpreted at [id number] for NICK Abdalla. Professional services are provided by the [facility] Division of Diagnostic Imaging. Hung Lema M.D. cm/penrad:11/28/2018 16:02:56 Veterinarian Poultry(s): Monalisa Lynn, [facility] letter sent: BI-RADS 3 Ultrasound BI-RADS: 3 [...] made to exam dated: 10/24/2018 mammogram - [facility]. TECHNIQUE: Mammographic views were obtained using digital [...] probably benign. This exam was interpreted at [id number] for NICK Abdalla. [facility]. Hung Lema M.D. cm/penrad:11/28/2018 16:01:54 Veterinarian Poultry(s): RT Rhonda(R)(M), [facility] Mammogram BI-RADS: 0 Indeterminate 11/28/2018 [facility] Breast Mammo Scrn CHAD incl CAD MA [...] are recommended. This exam was interpreted at [id number] for PILO Simeon. SUMMARY: The staff of [facility] will contact the referring physician for orders and then contact the patient to schedule the additional studies. A supplemental report will be issued following interpretation of the additional studies. Professional services are provided by the [facility] of Diagnostic Imaging. 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 03/10/2016 [facility] Knee 4+ views unilateral DX EX AM: [...] series be recommended for further characterization. 12/23/2015 [facility] Hand 3 views DX EXAM: X-RAY LE [...] fractures or dislocations are demo nstrated. 01/07/2015 [facility] Calcaneous series 2 view(s) of the right [...] ADM Date DC Date Status Source AUDIT [id number] 05/26/2013 05/26/2013 [facility] AUDIT [id number] 09/12/2013 09/12/2013 [facility] AUDIT [id number] 10/01/2013 10/02/2013 [facility] AUDIT [id number] 10/09/2013 10/09/2013 [facility] [id number] 00 Malena Hylton 01/09/2014 01/10/2014 [facility] [place] [facility] [id number] Malena Hylton 01/07/2015 [facility]/08/[facility] [place] [facility] [id number] 02 Ian Rosanne 02/20/2015 2015 JAX Rosas [facility] [place] [facility] [id number] 03 Malena Hylton 12/23/2015 12/24/2015 [facility] [place] [facility] [id number] 04 Malena Warner 03/10/2016 03/11/2016 [facility] - [place] [facility] [id number] 05 Malena Warner 10/24/2018 10/25/2018 [facility] [place] [facility] [id number] 06 Malena Hylton 11/28/2018 11/29/2018 KRIS[facility]aunna Alva[facility] [place] [facility] [id number] 07 Malena Hylton 01/29/2020 01/30/2020 [facility] Procedures No Data Provided for This Section Assessment and Plan No Data Provided for This Section Plan of Care Plan of Care Date Source [QLH] CMP W/EGFR 05/26/2013 Routine[Q] L IPID PANEL WITH REFLEX TO DIRECT LDL 05/26/2013 Routine[QLH] VITAMIN D, 1,25 DIHYDROXY LC/MS/MS 05/26/2013 Routine[QLH] TSH, 3RD GENERATION W/REFLEX TO FT4 05/26/2013 Routine[Q] METHYLMALONIC ACID, GC/MS/MS 05/26/2013 Routine 05/26/2013 [facility] Social History Social History Date Source No data available for this section 01/30/2020 [facility] No data available for this section 03/11/2016 [facility] No data available for this section 2015 [facility] Marital History - Currently (Active) Never A Smoker (Active) Never Used Drugs (Active) Being A Social Drinker (Active) 10/09/2013 [facility] Family History Value Date S ource Maternal history of Hypertension (V17.49 ); (Active) Paternal history of Cirrhosis (Active) Paternal history of Alcoholism (Active) 10/09/2013 [facility] Maternal history of Hypertension (V17.49 ); (Active) Paternal history of Cirrhosis (Active) Paternal history of Alcoholism (Active) 10/02/2013 [facility] Maternal history of Hypertension (V17.49 ); (Active) Paternal history of Cirrhosis (Active) Paternal history of Alcoholism (Active) 09/12/2013 [facility] Maternal history of Hypertension (V17.49 ); (Active) Paternal history of Cirrhosis (Active) Paternal history of Alcoholism (Active) 05/26/2013 [facility] Advance Directives Order Name Results Value Date Source Advance Directives Advance Dir ectives No Advance Directives available. 10/09/2013 [facility] Advance Directives Advance Dir ectives No Advance Directives available. 10/02/2013 [facility] Advance Directives Advance Dir ectives No Advance Directives available. 09/12/2013 [facility] Advance Directives Advance Dir ectives No Advance Directives available. 05/26/2013 [facility] Functional Status No Data Provided for This Section
--- OUTSIDE RECORDS SUMMARY | 2020-04-01 14:33 | XMS REPORT | Continuity of Care Document ---
Author Author [facility] t Organization [facility] Address [address] [place] [address] [address]. 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 Attphys Unavailable BESSIE PÉREZ M.D. Attphys UnavailESTEPHANIE Hudson M.D. Attphys Unavailable DAVIDE ANSARI APRN Attphys Unavailable ANGELO BARRY APRN Attphys Unavailable Lanny MCLEAN Attphys Unavailable LIGIA MCGARRY P.A. Attphys Unavailable ANKUR FRANKLIN Attphys Unavailable SANJUAAN MEDLEY M.D. Attphys Unavailable Clinton Lay Attphys Payers Payer Name Policy Type Policy Number Effective Date Expiration Date Horace ramos [facility] Medicare Complete [id number] 2019 00:00:00 [facility] MEDICARE ADVANTAGE GENERIC [id number] 2019 00:00:[address] [facility] [id number] 2017 00:00:00 C [facility] Problems Condition Name Condition Details Condition Category Status Onset Date Resolution Date Last Treatment Date Treating Clinician Comments Source M25.562 - PAIN IN LEFT KNEE M17.9 - "OST M25.562 - PAIN IN LEFT KNEE M17.9 - "OST Active 12/19/2015 [facility] Diagnosis Active 2015-12-19 00:01:00 2015-12-23 07:51:00 M elizabethjaime Ralph 719.44 - JOINT PAIN-HAND 719. 44 - JOINT PAIN-HAND Active 02/07/2015 [facility] Diagnosis Active 2015-02-07 00:01:00 2015 13:50:00 Charito Rosas UNK UNK Active 01/02/2015 [facility] Active 2015-01-02 00:00:00 2015-04-16 15:36:00 M elizabethjaime Bartonann 338 - PAIN NEC 338 - PAIN NEC Active 01/02/2014 [facility] [place] Diagnosis Active 2014-01-02 00:01:00 2014-01-09 16:33:00 Charito Rosas Encounter for mini-mental status examination Encounter for mini-mental status examination Problem Active [facility] History of hyperlipidemia History of hyperlipidemia Problem Resolved [facility] History of Prediabetes History of Prediabetes Problem Resolved [facility] History of esophageal reflux History of esophageal reflux Problem Re solved [facility] History of essential hypertension History of essential hypertens ion Problem Resolved [facility] History of Polyp of sigmoid colon History of Polyp of sigmoid co cj Problem Resolved [facility] Tinea cruris Tinea cruris Problem Active [facility] Influenza vaccine needed Influenza vaccine needed Problem Active [facility] Skin irritation Skin irritation Problem Active [facility] Cutaneous candidiasis Cutaneous candidiasis Problem Active [facility] Left hand paresthesia Left hand paresthesia Problem Active [facility] Deficit of flexor tendon Deficit of flexor tendon Problem Active [facility] Injury of flexor tendon of hand Injury of flexor tendon of hand Pro blem Active [facility] Chronic GERD Chronic GERD Problem Active [facility] On potassium wasting diuretic therapy On potassium wasting d iuretic therapy Problem Active [facility] Plantar fasciitis Plantar fasciitis Problem Active [facility] Colon cancer screening Colon cancer screening Problem Active [facility] Injury of left thumb Injury of left thumb Problem Active [facility] Chronic allergic rhinitis Chronic allergic rhinitis Problem Active [facility] RAD (reactive airway disease) RAD (reactive airway disease) Problem Active [facility] History of frequent nasal spray use History of frequent nasal sp ray use Problem Active [facility] Acute tracheobronchitis Acute tracheobronchitis Problem Active [facility] Left knee pain Left knee pain Problem Active [facility] Acute UTI Acute UTI Problem [facility] [place] [facility] Influenza vaccination declined by patient Influenza va ccination declined by patient Problem Active [facility] Suspected sleep apnea Suspected sleep apnea Problem Active [facility] Meralgia paresthetica, bilateral lower limbs Meralgia paresthetica, bilateral lower limbs Problem Active [facility] DJD (degenerative joint disease) of knee DJD (degenera tive joint disease) of knee Problem Active [facility] Pruritic erythematous rash Pruritic erythematous rash Problem Active [facility] Abnormal bone xray Abnormal bone xray Problem Active [facility] Screening for diabetes mellitus Screening for diabetes mellitus Pro blem Active [facility] Screening for hypothyroidism Screening for hypothyroidism Problem Active [facility] Ulcer of right cornea Ulcer of right cornea Problem Active [facility] Blurred vision Blurred vision Problem Active [facility] Elevated hemoglobin A1c Elevated hemoglobin A1c Problem Active [facility] Acute recurrent maxillary sinusitis Acute recurrent maxillary si nusitis Problem Active [facility] Otitis media Otitis media Problem Active [facility] Allergic rhinitis, seasonal Allergic rhinitis, seasonal Problem Active [facility] BOM (bilateral otitis media) BOM (bilateral otitis media) Problem Active [facility] BMI 40.0-44.9, adult BMI 40.0-44.9, adult Problem Active [facility] Hyperlipidemia Hyperlipidemia Problem Active [facility] Encounter for examination following treatment at [facility] Encounter for examination following treatment at hospital Problem Active [facility] Hypertriglyceridemia Hypertriglyceridemia Problem Active [facility] Need for hepatitis C screening test Need for hepatitis C screeni ng test Problem Active [facility] Postcholecystectomy diarrhea Postcholecystectomy diarrhea Problem Active [facility] Blepharitis of left lower eyelid, unspecified type Ble pharitis of left lower eyelid, unspecified type Problem Active [facility] Encounter for monitoring statin therapy Encounter for monito ring statin therapy Problem Active [facility] Nephropathy screen Nephropathy screen Problem Active [facility] No impairment of memory No impairment of memory Problem Active [facility] Heart murmur Heart murmur Problem Active [facility] Depression screen Depression screen Problem Active [facility] At low risk for fall At low risk for fall Problem Active [facility] Essential (primary) hypertension Essential (primary) hypertensio n Problem Active [facility] Mixed hyperlipidemia Mixed hyperlipidemia Problem Active [facility] Sigmoid diverticulosis Sigmoid diverticulosis Problem Active [facility] Low serum HDL Low serum HDL Problem Active [facility] Abnormal mammogram of left breast Abnormal mammogram of left elise ast Problem Active [facility] Personal history of colonic polyps Personal history of colonic p olyps Problem Active [facility] Breast cancer screening Breast cancer screening Problem Active [facility] Screening for osteoporosis Screening for osteoporosis Problem Active [facility] Class 3 severe obesity due to excess mable ories without serious comorbidity with body mass index (BMI) of 40.0 to 44.9 in adult Class 3 severe obesity due to excess calories without serious comorbidity with body mass index (BMI) of 40.0 to 44.9 in adult Problem Active [facility] At risk for coronary artery disease At risk for coronary artery disease Problem Active [facility] Dense breast tissue on mammogram Dense breast tissue on mammogra m Problem Active [facility] Left breast mass Left breast mass Problem Active [facility] Postmenopausal Postmenopausal Problem Active [facility] Chronic diarrhea Chronic diarrhea Problem Active [facility] Hypertension Problem Active [facility] Vaccines Prophylactic Need Against Influenza Vaccines Prophylactic Need Against Influenza Active 10/09/2013 [place] [facility] Problem Active 2013-10-09 12:45:51 Memilir Rosas Esophageal Reflux Esop hageal Reflux Active 10/09/2013 [facility] Problem Active 2013-10-09 12:45:51 M yoan Rosas Tinea Cruris Charo a Cruris Active 10/09/2013 [facility] Problem Active 2013-10-09 12:45:51 Erasmodaily Rosas Hypertension Hype rtension Active 10/09/2013 [facility] Problem Active 2013-10-09 12:45:51 Erasmodaily Rosas Hyperlipidemia Hype rlipidemia Active 10/09/2013 [facility] Problem Active 2013-10-09 12:45:51 M yoan Rosas Taking Medication For A Long Time Taking Medication For A Long Time Active 10/09/2013 [facility] Problem Active 2013-10-09 12:45:51 Charito Rosas Allergies, Adverse Reactions, Alerts Allergy Name Allergy Type Status Severity Reaction(s) Onset Date Inacti ve Date Treating Clinician Comments Source No Known Drug Allergies No Known Drug Allergies Active Charito Rosas Family History Family Member Diagnosis Comments Start Date Stop Date Source Mother Family history of Hypertension [facility] Father Family history of Cirrhosis [facility] Father Family history of alcoholism [facility] Unknown Family Member Family History 2013-05-26 14:37:22 2 14:37:22 Charito Rosas Social History Social Habit Start Date Stop Date Quantity Comments Source Sex Assigned At MD Zuniga Social History 2013-10-09 12:45:51 2013-10-09 12:45:51 Charito Rosas Smoking Status Start Date Stop Date Source Never smoked tobacco (finding) [facility] Medications Ordered Medication Name Filled Medication Name Start Date Stop Da te Current Medication? Ordering Clinician Indication Dosage Frequency Signature (SIG) Comments Components Source [id number] Ethyl Esters 1 GM Oral Capsule Rutledge-3-ac id Ethyl Esters 1 GM Oral Capsule 2019-12-04 00:00:00 Yes ELMIRA HYLTON M.D. TAKE 2 CAPSULES BY MOUTH TWICE A DAY [facility] Shingrix 50 MCG Intramuscular Suspension Reconstituted Shingrix 50 MCG Intramuscular Suspension Reconstituted 2019-10-06 00:00:00 Yes ELMIRA HYLTON M.D. 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 Take one tablet daily [facility] Trilipix 135 MG Oral Capsule Delayed Release 2013-10-09 12:45:51 Yes (Active) Charito Rosas Pravastatin Sodium 10 MG Oral Tablet 2013-10-09 12:45:51 Gary wallace (Active) Charito oRsas Multi Vitamin/Minerals Oral Tablet 2013-10-09 12:45:51 Yes (Active) Charito Rosas Calcium TABS 2013-10-09 12:45:51 Yes (Activ e) Charito Rosas Losartan Potassium-HCTZ 100-25 MG Oral Tablet 2013-10-09 06:00:0 0 Yes ; Start Date: 10/09/2013 (Active) Charito Rosas Losartan Potassium-HCTZ 100-25 MG Oral Tablet Losartan Potassium-HCTZ 100-25 MG Oral Tablet 2013-10-09 00:00:00 Yes ELMIRA HYLTON M.D. TAKE 1 TABLET BY MOUTH DAILY [facility] Losartan Potassium-HCTZ 100-25 MG Oral Tablet 2013-10-02 00:15:0 9 Yes (Active) Charito Bartonann AmLODIPine Besylate 5 MG Oral Tablet 2013-10-01 06:00:00 Ye s ; Start Date: 10/01/2013; End Date: (Active) Charito Bartonann Fenofibric Acid 135 MG Oral Capsule Delayed Release 10-01 06:00:00 Yes ; Start Date: 10/01/2013; End Date: 08/1899 (Active) Charito Ralph AmLODIPine Besylate 5 MG Oral Tablet 2013-09-12 22:49:44 Ye s (Active) Charito Rosas NexIUM 40 MG Oral Capsule Delayed Release 2013-09-12 06:00:00 Yes ; Start Date: 09/12/2013; End Date: (Active) Charito [place] NexIUM 40 MG Oral Capsule Delayed Release 2013-05-26 14:37:22 Yes (Active) Charito Rosas Ranitidine HCl 300 MG Oral Tablet 2013-05-26 05:00:00 Yes ; Start Date: 05/26/2013 (Active) Charito bauer Econazole Nitrate 1 % External Cream 2013-05-26 05:00:00 Ye s ; Start Date: 05/26/2013 (Active) Charito bauer Losartan Potassium Losartan Potassium Yes 25 Da bridget [facility] Esomeprazole Magnesium (Nexium) 40 Mg CAPSULE. Esabhay prazole Magnesium (Nexium) 40 Mg CAPSULE. 2018-07-26 00:00:00 No 40 Daily [facility] Fenofibric Acid (Choline) (Trilipix) 135 Mg CAPSULE. Fenofibric Acid (Choline) (Trilipix) 135 Mg CAPSULE. 2018-07-26 00:00:00 No 135 Daily [facility] Hydrocodone Bit/Acetaminophen* (Vicodin 5-500 Tablet*) 1 Each TABLET Hydrocodone Bit/Acetaminophen* (Vicodin 5-500 Tablet*) 1 Each TABLET 201 03-20-18 00:00:00 No 1 Q4-[address] [facility] Ondansetron (Zofran Odt) 4 Mg TAB.RAPDIS Ondansetron ( Zofran Odt) 4 Mg TAB.RAPDIS 2018-07-26 00:00:00 No 14 Every 4-6 Moon rs as needed [facility] Pravastatin Sodium (Pravachol) 40 Mg TABLET Pravastati n Sodium (Pravachol) 40 Mg TABLET 2018-07-26 00:00:00 No 40 Daily [facility] Immunizations Ordered Immunization Name Filled Immunization Name Date Status Comments Source Pneumococcal polysaccharide vaccine, 23 valent 2019-09 14:40:00 Completed [facility] Influenza 2019-06-09 00:00:00 Completed [facility] Fluzone Quadrivalent 0.5 ML Intramuscular Suspension 2017-06-01 10:29:00 Completed [facility] Tdap 2015-01-07 11:11:00 Completed [facility] Zoster (Zostavax) 2014-12-04 10:45:00 Completed [facility] Fluzone INJ 2013-05-26 09:22:00 Completed [facility] Hepatitis A 2011-11-19 00:00:00 Completed [facility] Influenza 2011-06-10 00:00:00 Completed [facility] Vital Signs Vital Name Observation Time Observation Value Comments Source Systolic blood pressure 2020-03-27 08:09:00 111 mm[Hg] Loca tion: LUE; Position: Sitting [facility] Diastolic blood pressure 2020-03-27 08:09:00 69 mm[Hg] Loc ation: LUE; Position: Sitting [facility] Body height 2020-03-27 08:09:00 61 [[facility]] [facility] Weight 2020-03-27 08:09:00 216.3 [lb_av] [facility] Body mass index (BMI) [Ratio] 2020-03-27 08:09:00 40.87 kg/m2 [facility] Body temperature 2020-03-27 08:09:00 97.3 [degF] Method: Temporal [facility] Heart Rate 2020-03-27 08:09:00 63 /min Location: L Radial; [facility] Respiratory rate 2020-03-27 08:09:00 16 /min Quality: Normal [facility] Systolic blood pressure 2020-03-20 09:05:00 155 mm[Hg] Loca tion: LUE; Position: Sitting [facility] Diastolic blood pressure 2020-03-20 09:05:00 81 mm[Hg] Loc ation: LUE; Position: Sitting [facility] Body height 2020-03-20 09:05:00 61 [in_us] [facility] Weight 2020-03-20 09:05:00 216 [lb_av] [facility] Body mass index (BMI) [Ratio] 2020-03-20 09:05:00 40.81 kg/m2 [facility] Body temperature 2020-03-20 09:05:00 98.2 [degF] Method: Temporal [facility] Heart Rate 2020-03-20 09:05:00 77 /min [facility] Respiratory rate 2020-03-20 09:05:00 16 /min [facility] Weight 2020-03-19 12:01:00 214 [lb_av] [facility] BMI (Body Mass Index) 2020-03-19 12:01:00 40.4 kg/m2 [facility] Systolic blood pressure 2020-01-19 09:17:00 126 mm[Hg] [facility] Diastolic blood pressure 2020-01-19 09:17:00 77 mm[Hg] [facility] Body height 2020-01-19 09:17:00 61 [in_us] [facility] Weight 2020-01-19 09:17:00 217 [lb_av] [facility] Body mass index (BMI) [Ratio] 2020-01-19 09:17:00 41 kg/m2 [facility] Systolic blood pressure 2019-12-15 09:17:00 133 mm[Hg] Loca tion: LUE; Position: Sitting [facility] Diastolic blood pressure 2019-12-15 09:17:00 81 mm[Hg] Loc ation: LUE; Position: Sitting [facility] Body height 2019-12-15 09:17:00 61 [in_us] [facility] Weight 2019-12-15 09:17:00 217 [lb_av] [facility] Body mass index (BMI) [Ratio] 2019-12-15 09:17:00 41 kg/m2 [facility] Body temperature 2019-12-15 09:17:00 97.3 [degF] [facility] Heart Rate 2019-12-15 09:17:00 66 /min Location: L Brachial Artery; [facility] Systolic blood pressure 2019-10-06 13:47:00 132 mm[Hg] Loca tion: LUE; Position: Sitting [facility] Diastolic blood pressure 2019-10-06 13:47:00 84 mm[Hg] Loc ation: LUE; Position: Sitting [facility] Systolic blood pressure 2019-10-06 13:39:00 145 mm[Hg] Loca tion: LUE; Position: Sitting [facility] Diastolic blood pressure 2019-10-06 13:39:00 79 mm[Hg] Loc ation: LUE; Position: Sitting [facility] Body height 2019-10-06 13:39:00 61 [in_us] [facility] Weight 2019-10-06 13:39:00 217.9 [lb_av] [facility] Body mass index (BMI) [Ratio] 2019-10-06 13:39:00 41.17 kg/m2 [facility] Body temperature 2019-10-06 13:39:00 97.1 [degF] Method: Temporal [facility] Heart Rate 2019-10-06 13:39:00 74 /min Location: L Radial; [facility] Respiratory rate 2019-10-06 13:39:00 16 /min Quality: Normal [facility] BP Systolic 2019-05-19 10:17:00 127 mm[Hg] Location: [place]; [place] on: Sitting [facility] BP Diastolic 2019-05-19 10:17:00 66 mm[Hg] Location: [place]; [place] on: Sitting [facility] Height 2019-05-19 10:17:00 61 [in_us] [facility] Weight 2019-05-19 10:17:00 215 [lb_av] [facility] Body Mass Index Calculated 2019-05-19 10:17:00 40.62 kg/m2 [facility] Temperature 2019-05-19 10:17:00 98.2 [degF] Method: Temporal [facility] Heart Rate 2019-05-19 10:17:00 79 /min [facility] Respiration Rate 2019-05-19 10:17:00 16 /min [facility] BP Systolic 2019-05-12 13:12:00 122 mm[Hg] Location: [place]; [place] on: Sitting [facility] BP Diastolic 2019-05-12 13:12:00 63 mm[Hg] Location: LUE; [place] on: Sitting [facility] Height 2019-05-12 13:12:00 61 [in_us] [facility] Weight 2019-05-12 13:12:00 218 [lb_av] [facility] Body Mass Index Calculated 2019-05-12 13:12:00 41.19 kg/m2 [facility] Temperature 2019-05-12 13:12:00 97.7 [degF] Method: Temporal [facility] Heart Rate 2019-05-12 13:12:00 71 /min [facility] Respiration Rate 2019-05-12 13:12:00 16 /min [facility] Procedures Procedure Date / Time Performed Performing Clinician Sour e [Q] LIPID PANEL WITH REFLEX TO DIRECT LDL 2019-12-15 00:00:00 [facility] [QL] CMP W/EGFR 2019-12-15 00:00:00 [facility] [N] Carotid Bilateral [id number] 2019-12-15 00:00:00 [facility] [Q] LIPID PANEL WITH REFLEX TO DIRECT LDL 2019-12-05 00:00:00 [facility] MA Digital Mammo DX Leonid [id number] 2019-12-05 00:00:00 [facility] [place] [id number] 2019-12-05 00:00:00 [facility] MA Bone Density DXA [employer] [id number] 2019-12-05 00:00:00 [facility] [QLH] CMP W/EGFR 2019-10-06 00:00:00 [facility] [QL] TSH, 3RD GENERATION W/REFLEX TO FT4 2019-10-06 00:00:00 [facility] [Q] PROTEIN, TOTAL W/CREAT, RANDOM URINE 2019-10-06 00:00:00 [facility] [[facility]] HEPATITIS C ANTIBODY 2019-10-06 00:00:00 [facility] LIPID PANEL WITH REFLEX TO DIRECT LDL 2019-10-06 00:00:00 [facility] [N] 2D Echo complete, with Doppler [id number] 2019-10-06 00:00:00 [facility] [[facility]] CBC (INCLUDES DIFF/PLT) 2019-05-30 00:00:00 [facility] [[facility]] CMP W/EGFR 2019-05-30 00:00:00 [facility] [[facility]] LIPID PANEL 2019-05-30 00:00:00 [facility] History of Hysterectomy [facility] History of Oophorectomy - Bilat (Removal Of Both Ovaries) Laparo scopic [facility] History of Cholecystectomy [facility] History of Wrist Surgery [facility] History of Knee Surgery [facility] Plan of Care Planned Activity Planned Date Details Comments Source Future Scheduled Test 2020-03-16 00:00:00 [N] Carotid Bilate ral [id number] [code = [N] Carotid Bilateral [id number]] [facility]x [facility] Future Scheduled Test 2020-01-15 00:00:00 [Q] LIPID PANEL WI TH REFLEX TO DIRECT LDL [code = [Q] LIPID PANEL WITH REFLEX TO DIRECT LDL] [facility] Future Scheduled Test 2020-01-15 00:00:00 [Q] LIPID PANEL WI TH REFLEX TO DIRECT LDL [code = [Q] LIPID PANEL WITH REFLEX TO DIRECT LDL] [facility] Diagnostic Test Pending 2019-12-05 00:00:00 MA Digital Mammo DX Leonid G0204 [code = G0204] [facility] Diagnostic Test Pending 2019-12-05 00:00:00 [place] [address] [code = 86774] [facility] Diagnostic Test Pending 2019-12-05 00:00:00 MA Bone Density DXA Dual Energy 48291 [code = 07213] [facility] Diagnostic Test Pending 2019-10-06 00:00:00 [N] 2D Echo comp lete, with Doppler 23686 [code = [N] 2D Echo complete, with Doppler 37950] [facility] Future Scheduled Test 2013-05-26 14:37:22 Plan of Care [code = 1877 6-5] [facility] Future Scheduled Test [QLH] CBC (INCLUDE S DIFF/PLT) [code = [QLH] CBC (INCLUDES DIFF/PLT)] After 20Aug2019 [facility] Future Scheduled Test [QLH] CMP W/EGFR [code = [ QLH] CMP W/EGFR] After 20Aug2019 [facility] Future Scheduled Test [QLH] LIPID PANEL [code = [QLH] LIPID PANEL] After 20Aug2019 [facility] Future Appointment 2020-07-15 09:30:00 Emanuel KU, [facility] Future Appointment 2020-04-02 12:00:00 Emanuel [place], [facility] Instructions Hypertension [facility] Encounters Start Date/Time End Date/Time Encounter Type Admission Type Attendi [facility] Care Department Encounter ID Source 2020-03-27 08:00:00 2020-03-27 08:00:00 Appointment; LINDSAY RAZA A PRN SAXE, KAILA, APRN UTP [facility], [address] [id number] [facility] 2020-03-20 09:15:00 2020-03-20 09:15:00 Appointment; LINDSAY RAZA A PRN SAXE, KAILA, APRN UTP UTP [id number] [facility] 2020-03-19 13:14:00 2020-03-19 14:39:00 Departed Emergency Room [facility] [id number] [facility] 2020-03-18 15:00:00 2020-03-18 15:00:00 Appointment; Santi PENNINGTON-, ECHO UTP UTP [id number] [facility] 2020-01-29 10:22:00 2020-01-29 23:59:00 Outpatient Elmira Hylton [facility] [id number] 2020-01-29 00:00:00 2020-01-29 23:59:00 Outpatient MDA MDA [id number] MD Zuniga 2020-01-19 09:30:00 2020-01-19 09:30:00 Appointment; KRISTINA HYLTON M.D. GOODINE, GLENDA, M.D. [facility] [id number] [facility] 2019-12-15 09:00:00 2019-12-15 09:00:00 Appointment; BESSIE HUSSEIN M.D. CHARITAKIS, KONSTANTINOS, M.D. [facility]2 [id number] [facility] 2019-12-04 15:45:00 2019-12-04 15:45:00 Appointment; KRISTINA HYLTON M.D. GOODINE, GLENDA, M.D. [facility] [id number] [facility] 2019-10-25 13:00:00 2019-10-25 13:00:00 Appointment; [facility] ECHO [facility] [id number] [facility] 2019-10-06 14:15:00 2019-10-06 14:15:00 Appointment; KRISTINA HYLTON M.D. GOODINE, GLENDA, M.D. [facility] [id number] [facility] 2019-06-29 09:00:00 2019-06-29 09:00:00 Appointment; ESTEPHANIE WAGNER M.D. BYRD, MICHAEL, M.D. [facility] [id number] [facility] 2019-06-15 09:00:00 2019-06-15 09:00:00 Appointment; ESETPHANIE WAGNER M.D. BYRD, MICHAEL, M.D. [facility] 1 [id number] [facility] 2019-05-29 08:45:00 2019-05-29 08:45:00 Appointment; DAVIDE ANSARI APRN DUGAS, NANCY, APRN [facility] 1 [id number] [facility] 2019-05-19 10:30:00 2019-05-19 10:30:00 Appointment; ZACKARY BARRY APRN HOANG, CHRISTINA, APRN UTP [facility] [id number] [facility] 2019-05-14 12:04:00 2019-05-14 16:18:00 Departed Emergency Room 1 DINORA MCLEAN [facility] [id number] [facility] 2019-05-12 13:30:00 2019-05-12 13:30:00 Appointment; ZACKARY BARRY APRN HOANG, CHRISTINA, APRN UTP UTP [id number] [facility] 2019-02-10 14:30:00 2019-02-10 14:30:00 Appointment; DAVIDE ANSARI APRN DUGAS, NANCY, APRN UTP UTP [id number] [facility] 2018-11-28 14:07:00 2018-11-28 23:59:00 Outpatient Elmira Hylton [facility] [id number] 2018-11-02 10:30:00 2018-11-02 10:30:00 Appointment; RACHEL MCGARRY P.A. SPOONER, JOSEPH, P.A. [facility] UTP [id number] [facility] 2018-10-24 14:54:00 2018-10-24 23:59:00 [facility] [id number] 2018-09-15 13:24:00 2018-10-06 23:59:00 Discharged Recurring [facility] [id number] [facility] 2018-08-08 09:30:00 2018-08-08 09:30:00 Appointment; KRISTINA HYLTON M.D. GOODINE, GLENDA, M.D. [facility] UTP [id number] [facility] 2018-07-27 11:08:00 2018-07-27 11:08:00 Registered Surgical Day Car e ANKUR GONZALEZ [facility] [id number] [facility] 2018-01-11 13:15:00 2018-01-11 13:15:00 Appointment; SANJUANA MEDLEY M.D. SATTAR, BEENA, M.D. [facility] UTP [id number] [facility] 2017-06-01 09:30:00 2017-06-01 09:30:00 Appointment; KRISTINA HYLTON M.D. GOODINE, GLENDA, M.D. UTP UTP [id number] [facility] 2016-03-10 07:46:00 2016-03-10 23:59:00 Outpatient Elmira Hylton MHOIB MHOIB [id number] 2015-12-23 07:38:00 2015-12-23 23:59:00 Outpatient Elmira Hylton MHO[facility] MHOIB [id number] 2015-02-20 13:28:00 2015-02-20 23:59:00 [facility] [id number] 2015-01-07 10:06:00 2015-01-07 23:59:00 Outpatient Elmira Hylton [facility] [id number] 2014-01-09 16:24:00 2014-01-09 23:59:00 Outpatient Elmira Hylton MHIE MHIE [id number] 2013-10-09 06:45:51 2013-10-09 06:45:51 Outpatient MHIE MHIE [id number] 2013-10-01 18:15:10 2013-10-01 18:15:09 Outpatient MHIE MHIE [id number] 2013-09-12 16:49:44 2013-09-12 16:49:44 Outpatient MHIE [facility]IE [id number] 2013-05-26 09:37:23 2013-05-26 09:37:22 Outpatient MHIE MHIE [id number] Results Test Description Test Time Test Comments Results Result Comments Source Blood leukocytes automated count (number/volume) 2020-03-19 12:20:00 Test Item White Blood Count (test code = 6690-2) 9.09 4.8-10.8 [facility] erythrocytes automated count (number/volume)2020-03-19 12:20:00* Test Item Value Reference Range Interpretation Comments Red Blood Count (test code = 789-8) 5.41 3.6-5.1 [facility] Hospital[facility] hemoglobin measurement (moles/volume)2020-03-19 12:20:00* Test Item Value Reference Range Interpretation Comments Hemoglobin (test code = 92178-0) 14.9 12.0-16.0 [facility] HospitalAutomated blood hematocrit (volume fraction)2020-03-19 12:20:00* Test Item Value Reference Range Interpretation Comments Hematocrit (test code = 4544-3) 46.5 34.2-44.1 [facility] HospitalAutomated erythrocyte mean corpuscular wwoqbw4070-22-31 12:20:00* Test Item Value Reference Range Interpretation Comments Mean Corpuscular Volume (test code = 787-2) 86.0 81-99 [facility] HospitalAutomated erythrocyte mean corpuscular hemoglobin (mass per erythrocyte)2020-03-19 12:20:00* Test Item Value Reference Range Interpretation Comments Mean Corpuscular Hemoglobin (test code = 785-6) 27.5 28-32 [facility] HospitalAutomated erythrocyte mean corpuscular hemoglobin concentration measurement (mass/volume)2020-03-19 12:20:00* Test Item Value Reference Range Interpretation Comments Mean Corpuscular Hemoglobin Concent (test code = 786-4) 32.0 31-35 [facility] HospitalRDW ZxpIz-Opq0931-52-11 12:20:00* Test Item Value Reference Range Interpretation Comments Red Cell Distribution Width (test code = 89021-5) 13.5 11.7 -14.4 [facility] HospitalAutomated blood platelet count (count/volume)2020-03-19 12:20:00* Test Item Value Reference Range Interpretation Comments Platelet Count (test code = 777-3) 177 140-360 [facility] neutrophil count as percentage of total iygdeabebh7457-95-81 12:20:00* Test Item Value Reference Range Interpretation Comments Neutrophils (%) (Auto) (test code = 75909-0) 66.8 38.7-80.0 [facility] HospitalAutomated blood lymphocyte count as percentage ot total maontyzvms6110-31-13 12:20:00* Test Item Value Reference Range Interpretation Comments Lymphocytes (%) (Auto) (test code = 736-9) 23.4 18.0-39.1 [facility] HospitalAutomated blood monocyte count as percentage of total xhkffwhela9652-10-76 12:20:00* Test Item Value Reference Range Interpretation Comments Monocytes (%) (Auto) (test code = 5905-5) 8.0 4.4-11.3 [facility] HospitalAutomated blood eosinophil count as percentage of total nesptlqrzu4940-95-39 12:20:00* Test Item Value Reference Range Interpretation Comments Eosinophils (%) (Auto) (test code = 713-8) 1.1 0.0-6.0 [facility] HospitalAutomated blood basophil count as percentage of total zqyrhzufky2643-23-65 12:20:00* Test Item Value Reference Range Interpretation Comments Basophils (%) (Auto) (test code = 706-2) 0.4 0.0-1.0 [facility] HospitalFluoroscopic procedure less than one hour qvshhqkl7140-97-82 12:20:00* Test Item Value Reference Range Interpretation Comments IM GRANULOCYTES % (test code = IM GRANULOCYTES %) 0.3 0.0- 1.0 [facility] HospitalAutomated blood neutrophil count 2020-03-19 12:20:00* Test Item Value Reference Range Interpretation Comments Neutrophils # (Auto) (test code = 751-8) 6.1 2.1-6.9 [facility] HospitalBlood lymphocytes count (number/volume) 2020-03-19 12:20:00* Test Item Value Reference Range Interpretation Comments Lymphocytes # (Auto) (test code = 56584-8) 2.1 1.0-3.2 [facility] HospitalBlood monocytes automated count (number/volume)2020-03-19 12:20:00* Test Item Value Reference Range Interpretation Comments Monocytes # (Auto) (test code = 742-7) 0.7 0.2-0.8 [facility] HospitalAutomated blood eosinophil count 2020-03-19 12:20:00* Test Item Value Reference Range Interpretation Comments Eosinophils # (Auto) (test code = 711-2) 0.1 0.0-0.4 [facility] HospitalAutomated blood basophil count (count/volume)2020-03-19 12:20:00* Test Item Value Reference Range Interpretation Comments Basophils # (Auto) (test code = 704-7) 0.0 0.0-0.1 [facility] HospitalFluoroscopic procedure less than one hour yyhqtbwg1452-98-64 12:20:00* Test Item Value Reference Range Interpretation Comments Absolute Immature Granulocyte (auto (alirio t code = Absolute Immature Granulocyte (auto) 0.03 0-0.1 [facility] HospitalUrine color signgvycuwhco8713-56-34 12:20:00* Test Item Value Reference Range Interpretation Comments Urine Color (test code = 5778-6) YELLOW YELLOW [facility] HospitalUrine fedcasz6075-51-92 12:20:00* Test Item Value Reference Range Interpretation Comments Urine Clarity (test code = 31005-0) CLEAR CLEAR [facility] Urine by Test strip 2020-03-19 12:20:00* Test Item Value Reference Range Interpretation Comments Urine Specific [place] (test code = 5811-5) 1.020 1.010-1.02 5 [facility] HospitalUrine pH measurement by automated test rzwha5443-53-51 12:20:00* Test Item Value Reference Range Interpretation Comments Urine pH (test code = 51131-1) 7.5 5-7 [facility] HospitalUrine leukocyte esterase detection by bwmvrmkl7581-87-32 12:20:00* Test Item Value Reference Range Interpretation Comments Urine Leukocyte Esterase (test code = 5799-2) NEGATIVE NEGATIVE [facility] HospitalUrine nitrite fxqjqkfqt9176-98-62 12:20:00* Test Item Value Reference Range Interpretation Comments Urine Nitrite (test code = 23652-6) NEGATIVE NEGATIVE [facility] HospitalUrine protein measurement by test strip (mass/volume)2020-03-19 12:20:00* Test Item Value Reference Range Interpretation Comments Urine Protein (test code = 5804-0) NEGATIVE NEGATIVE [facility] HospitalUrine glucose lqssslewr6814-40-87 12:20:00* Test Item Value Reference Range Interpretation Comments Urine Glucose (UA) (test code = 2349-9) NEGATIVE NEGATIVE [facility] HospitalUrine ketones detection by automated test ylmzf7264-14-76 12:20:00* Test Item Value Reference Range Interpretation Comments Urine Ketones (test code = 39282-1) NEGATIVE NEGATIVE [facility] HospitalUrine urobilinogen measurement by test strip (mass/volume)2020-03-19 12:20:00* Test Item Value Reference Range Interpretation Comments Urine Urobilinogen (test code = 50532-6) 0.2 0.2-1 [facility] HospitalUrine total bilirubin measurement (mass/volume)2020-03-19 12:20:00* Test Item Value Reference Range Interpretation Comments Urine Bilirubin (test code = 1978-6) NEGATIVE NEGATIVE [facility] HospitalUrine erythrocytes wsyhxmmia6546-23-81 12:20:00* Test Item Value Reference Range Interpretation Comments Urine Blood (test code = 70905-4) TRACE NEGATIVE [facility] HospitalAutomated urine sediment leukocyte count by microscopy (number/high power field)2020-03-19 12:20:00* Test Item Value Reference Range Interpretation Comments Urine WBC (test code = 5821-4) 0-5 0-5 [facility] HospitalErythrocytes detection in urine sediment by light srszhyigva8654-80-99 12:20:00* Test Item Value Reference Range Interpretation Comments Urine RBC (test code = 50990-2) 0-5 0-5 [facility] HospitalBacteria detection in urine sediment by light hcqyqhqvph4662-51-03 12:20:00* Test Item Value Reference Range Interpretation Comments Urine Bacteria (test code = 61977-5) FEW NONE [facility] HospitalEpithelial cells detection in urine sediment by light krhvbvykpb8561-09-37 12:20:00* Test Item Value Reference Range Interpretation Comments Urine Epithelial Cells (test code = 51732-4) FEW NONE [facility] Centererum or plasma sodium measurement (moles/volume)2020-03-19 12:20:00* Test Item Value Reference Range Interpretation Comments Sodium Level (test code = 2951-2) 141 136-145 [facility] Centererum or plasma potassium measurement (moles/volume)2020-03-19 12:20:00* Test Item Value Reference Range Interpretation Comments Potassium Level (test code = 2823-3) 3.0 3.5-5.1 [facility] Centererum or plasma chloride measurement (moles/volume)2020-03-19 12:20:00* Test Item Value Reference Range Interpretation Comments Chloride Level (test code = 2075-0) 103 98-107 [facility] Centererum or plasma carbon dioxide, total measurement (moles/volume)2020-03-19 12:20:00* Test Item Value Reference Range Interpretation Comments Carbon Dioxide Level (test code = 2028-9) 28 22-29 [facility] Centererum or plasma anion mle3826-31-51 12:20:00* Test Item Value Reference Range Interpretation Comments Anion Gap (test code = 89326-0) 13.0 8-16 [facility] or plasma urea nitrogen measurement (mass/volume)2020-03-19 12:20:00* Test Item Value Reference Range Interpretation Comments Blood Urea Nitrogen (test code = 3094-0) 10 7-26 [facility] Centererum or plasma creatinine measurement (mass/volume)2020-03-19 12:20:00* Test Item Value Reference Range Interpretation Comments Creatinine (test code = 2160-0) 0.81 0.57-1.11 [facility] Centererum or plasma urea nitrogen/creatinine mass gqcbe8452-86-33 12:20:00* Test Item Value Reference Range Interpretation Comments BUN/Creatinine Ratio (test code = 3097-3) 12 6-25 [facility] HospitalEstimated glomerular filtration rate (GFR) ddjeefqhmzlec9249-06-92 12:20:00* Test Item Value Reference Range Interpretation Comments Estimat Glomerular Filtration Rate (test code = 710986301) > 60 >60 Ranges were taken from the National Kidney Disease Education Program and the [facility] [employer] literature.Reference ranges:60 or greater: Ruvino62-19 ( for 3 consecutive months): Chronic kidney disease 15 or less: Kidney failureAudie L. Murphy Memorial VA HospitalGlucose veuvgutanpx7156-26-40 12:20:00* Test Item Value Reference Range Interpretation Comments Glucose Level (test code = FGK2464) 98 74-118 [facility]ererum or plasma calcium measurement (mass/volume)2020-03-19 12:20:00* Test Item Value Reference Range Interpretation Comments Calcium Level (test code = 76667-8) 9.8 8.4-10.2 [facility]ererum or plasma total bilirubin measurement (mass/volume)2020-03-19 12:20:00* Test Item Value Reference Range Interpretation Comments Total Bilirubin (test code = 1975-2) 0.4 0.2-1.2 [facility] HospitalFluoroscopic procedure less than one hour wicpnghc2333-21-17 12:20:00* Test Item Value Reference Range Interpretation Comments Aspartate Amino Transf (AST/SGOT) (test code = Aspartate Amino Transf (AST/SGOT)) 26 5-34 [facility] Centererum or plasma alanine aminotransferase measurement (enzymatic activity/volume)2020-03-19 12:20:00* Test Item Value Reference Range Interpretation Comments Alanine Aminotransferase (ALT/SGPT) (test code = 1742-6) 46 0-55 [facility] Centererum or plasma protein measurement (mass/volume)2020-03-19 12:20:00* Test Item Value Reference Range Interpretation Comments Total Protein (test code = 2885-2) 7.7 6.5-8.1 [facility] Centererum or plasma albumin measurement (mass/volume)2020-03-19 12:20:00* Test Item Value Reference Range Interpretation Comments Albumin (test code = 1751-7) 4.2 3.5-5.0 [facility] HospitalPlasma globulin measurement (mass/volume) 2020-03-19 12:20:00* Test Item Value Reference Range Interpretation Comments Globulin (test code = 14719-3) 3.5 2.3-3.5 [facility]ererum or plasma albumin/globulin mass nvkuj1057-19-71 12:20:00* Test Item Value Reference Range Interpretation Comments Albumin/Globulin Ratio (test code = 1759-0) 1.2 0.8-2.0 [facility] Centererum or plasma alkaline phosphatase measurement (enzymatic activity/volume)2020-03-19 12:20:00* Test Item Value Reference Range Interpretation Comments Alkaline Phosphatase (test code = 6768-6) 93 40-150 [facility]] LIPID KEMHI3603-35-54 09:07:00* Test Item Value Reference Range Interpretation Comments CHOLESTEROL, TOTAL; Normal (test code = 2093-3) 155 mg/dl <200 N HDL CHOLESTEROL; Below Low Threshold (test code = 2085-9) 38 mg/dl >50 TRIGLYCERIDES; Above High Threshold (test code = 2571-8) 321 mg/dl <150 If a non-fasting specimen was collected, considerrepeat triglyceride testing on a fasting specimenif clinically indicated. Elton et al. J. of Clin. Lipidol. 2015;9:129-169. LDL-CHOLESTEROL; Normal (test code = 18118-0) 78 {MG/DL MABLE} N Reference range: <100 Desirable range <100 mg/dL for primary prevention; <70 mg/dL for patients with CHD or diabetic patients with > or = 2 CHD risk factors. LDL-C is now calculated using the Levi-Lennon calculation, which is a validated novel method providing better accuracy than the Friedewald equation in the estimation of LDL-C. Levi SS et al. CHRISSIE. 2013;310(19): 8362-4845 (http ://education.[employer]/faq/DFI599) CHOL/HDLC RATIO (test code = CHOL/HDLC RATIO) 4.1 {CALC} <5.0 N NON HDL CHOLESTEROL (test code = NON HDL CHOLESTEROL) 117 {MG/DL C AL} <130 N For patients with diabetes plus 1 major ASCVD risk factor, treating to a non-HDL-C goal of <100 mg/dL (LDL-C of <70 mg/dL) is considered a therapeutic option. [facility]icians[facility] [id number] 14:10:00* Test Item Value Reference Range Interpretation Comments Urine WBC (test code = 5821-4) 6-10 0-5 H [facility] HospitalUrine [id number] 14:10:00* Test Item Value Reference Range Interpretation Comments Urine RBC (test code = 95697-7) 6-10 0-5 H [facility] HospitalUrine Gekrxjot2787-92-02 14:10:00* Test Item Value Reference Range Interpretation Comments Urine Bacteria (test code = 61840-4) RARE NONE [facility] HospitalUrine Epithelial Nffar1601-22-09 14:10:00 * Test Item Value Reference Range Interpretation Comments Urine Epithelial Cells (test code = 00677-7) FEW NONE [facility] HospitalProthrombin Qohu6377-35-05 14:07:00* Test Item Value Reference Range Interpretation Comments Prothrombin Time (test code = 5902-2) 14.1 11.9-14.5 [facility] HospitalProthromb Time International Ratio 2019-05-14 14:07:00* Test Item Value Reference Range Interpretation Comments Prothromb Time International Ratio (test code = 6301-6) 1.04 Oral Anticoagulant Therapy INR Values:1. Low Intensity Therapy 1.5 - 2.02 . Moderate Intensity Therapy 2.0 - 3.03. High Intensity Therapy(1) 2.5 - 3. 54. High Intensity Therapy(2) 3.0 - 4.05. Panic Value INR > 5.0 [facility] HospitalActivated Partial Thromboplast Time 2019-05-14 14:07:00* Test Item Value Reference Range Interpretation Comments Activated Partial Thromboplast Time (test code = 82386-4) 31.0 23.8-35.5 [facility] HospitalCHEST 2 LWYDI4119-28-60 14:07:00 [place] [address] Patient Name: RACHAEL ASCENCIO MR #: [id number] : 1955 Age/Sex: 64/F Req #: [id number] Adm Physician: Ordered by: DINORA CMLEAN MD Report #: [id number] Location: ER Room/Bed: Procedure: [id number] DX /CHEST 2 VIEWS Exam Date: 05/14/19 [...] No significant interval change. Ashley d by: Rehana MaciasOReynaldo, M.M.M. on 05/14/2019 2:10 PM Dictated By: MARY GONZALEZ DO 141 Transcri bed By: KRISTYN on 05/14/19 1410 COPY TO: DINORA MCLEAN MD CT BRAIN LG7261-79-14 14:06:00 [place] [address] Patient Name: RACHAEL ASCENCIO MR #: [id number] : 1955 Age/Sex: 64/F Req #: [id number] Adm Physician: Ordered by: DINORA MCLEAN MD Report #: [id number] Location: ER Room/Bed: Procedure: [id number] CT /CT BRAIN WO Exam Date: 05/14/19 [...] 3:44 PM Dictated By: GARETT TABOR MD 1345 Transcribed By: KRISTYN on 05/14/19 9475 COPY TO: DINORA MCLEAN MD Sodium Tbdmm1514-25-77 14:05:00* Test Item Value Reference Range Interpretation Comments Sodium Level (test code = 2951-2) 142 136-145 [facility] Skala0591-92-85 14:05:00* Test Item Value Reference Range Interpretation Comments Potassium Level (test code = 2823-3) 3.2 3.5-5.1 L [facility] HospitalChloride Mbxvs3928-75-16 14:05:00* Test Item Value Reference Range Interpretation Comments Chloride Level (test code = 2075-0) 103 98-107 [facility] HospitalCarbon Dioxide Wrlzd6261-15-90 14:05:00* Test Item Value Reference Range Interpretation Comments Carbon Dioxide Level (test code = 2028-9) 27 22-29 [facility] HospitalAnion Yoj8953-26-60 14:05:00* Test Item Value Reference Range Interpretation Comments Anion Gap (test code = 93002-5) 15.2 8-16 [facility] HospitalBlood Urea Cfyyxolf2668-55-72 14:05:00* Test Item Value Reference Range Interpretation Comments Blood Urea Nitrogen (test code = 3094-0) 14 7-26 [facility] HospitalCreatinine2019-10-06 14:05:00* Test Item Value Reference Range Interpretation Comments Creatinine (test code = 2160-0) 0.73 0.57-1.11 [facility] HospitalBUN/Creatinine Wjovo9677-07-67 14:05:00* Test Item Value Reference Range Interpretation Comments BUN/Creatinine Ratio (test code = 3097-3) 19 6-25 [facility] HospitalEstimat Glomerular Filtration Rate 2019-05-14 14:05:00* Test Item Value Reference Range Interpretation Comments Estimat Glomerular Filtration Rate (test code = 004312588) > 60 >60 Ranges were taken from the National Kidney Disease Education Program and the [facility] literature.Reference ranges:60 or greater: Rzxzwg60-69 ( for 3 consecutive months): Chronic kidney disease 15 or less: Kidney failureAudie L. Murphy Memorial [facility] HospitalGlucose Cfvdl3644-78-33 14:05:00* Test Item Value Reference Range Interpretation Comments Glucose Level (test code = GKN5358) 104 74-118 [facility] HospitalCalcium Xtnol7097-63-39 14:05:00* Test Item Value Reference Range Interpretation Comments Calcium Level (test code = 61991-3) 9.7 8.4-10.2 [facility] HospitalTotal Oaoobswfi5481-42-21 14:05:00* Test Item Value Reference Range Interpretation Comments Total Bilirubin (test code = 1975-2) 0.3 0.2-1.2 [facility] HospitalAspartate Amino Transf (AST/SGOT) 2019-05-14 14:05:00* Test Item Value Reference Range Interpretation Comments Aspartate Amino Transf (AST/SGOT) (test code = Aspartate Amino Transf (AST/SGOT)) 17 5-34 [facility] HospitalAlanine Aminotransferase (ALT/SGPT) 2019-05-14 14:05:00* Test Item Value Reference Range Interpretation Comments Alanine Aminotransferase (ALT/SGPT) (test code = 1742-6) 27 0-55 [facility] HospitalTotal Cwfhdqa9329-79-93 14:05:00* Test Item Value Reference Range Interpretation Comments Total Protein (test code = 2885-2) 7.3 6.5-8.1 [facility] HospitalAlbumin2019-10-06 14:05:00* Test Item Value Reference Range Interpretation Comments Albumin (test code = 1751-7) 3.3 3.5-5.0 L [facility] HospitalGlobulin2019-10-06 14:05:00* Test Item Value Reference Range Interpretation Comments Globulin (test code = 39251-8) 4.0 2.3-3.5 H [facility] HospitalAlbumin/Globulin [id number] 14:05:00 * Test Item Value Reference Range Interpretation Comments Albumin/Globulin Ratio (test code = 1759-0) 0.8 0.8-2.0 [facility] HospitalAlkaline Rvbeeuvjsve8469-28-15 14:05:00* Test Item Value Reference Range Interpretation Comments Alkaline Phosphatase (test code = 6768-6) 104 40-150 [facility] HospitalCreatine Fjmaax4602-77-24 14:05:00* Test Item Value Reference Range Interpretation Comments Creatine Kinase (test code = 2157-6) 119 29-168 [facility] HospitalCreatine Kinase [id number] 14:05:00* Test Item Value Reference Range Interpretation Comments Creatine Kinase MB (test code = 90570-6) 2.00 0-5.0 [facility] HospitalTroponin [id number] 14:05:00* Test Item Value Reference Range Interpretation Comments Troponin I (test code = PZG9965) < 0.001 0-0.300 [facility] HospitalWhite Blood Wfkpl1906-21-60 14:02:00* Test Item Value Reference Range Interpretation Comments White Blood Count (test code = 6690-2) 15.88 4.8-10.8 H [facility] HospitalRed Blood Hhroh6676-52-94 14:02:00* Test Item Value Reference Range Interpretation Comments Red Blood Count (test code = 789-8) 4.88 3.6-5.1 [facility] HospitalHemoglobin2019-10-06 14:02:00* Test Item Value Reference Range Interpretation Comments Hemoglobin (test code = 99115-2) 13.7 12.0-16.0 [facility] HospitalHematocrit2019-10-06 14:02:00* Test Item Value Reference Range Interpretation Comments Hematocrit (test code = 4544-3) 42.0 34.2-44.1 [facility] HospitalMean Corpuscular Pzdocp8361-41-16 14:02:00* Test Item Value Reference Range Interpretation Comments Mean Corpuscular Volume (test code = 787-2) 86.1 81-99 [facility] HospitalMean Corpuscular Nrpkgivfvu6696-71-21 14:02:00* Test Item Value Reference Range Interpretation Comments Mean Corpuscular Hemoglobin (test code = 785-6) 28.1 28-32 [facility] Corpuscular Hemoglobin Concent 2019-05-14 14:02:00* Test Item Value Reference Range Interpretation Comments Mean Corpuscular Hemoglobin Concent (test code = 786-4) 32.6 31-35 [facility] HospitalRed Cell Distribution Kfhgf5881-73-14 14:02:00* Test Item Value Reference Range Interpretation Comments Red Cell Distribution Width (test code = 23745-9) 13.1 11.7 -14.4 [facility] HospitalPlatelet Nbxvq9137-48-40 14:02:00* Test Item Value Reference Range Interpretation Comments Platelet Count (test code = 777-3) 282 140-360 [facility] HospitalNeutrophils (%) (Auto)2019-05-14 14:02:00 * Test Item Value Reference Range Interpretation Comments Neutrophils (%) (Auto) (test code = 96926-0) 73.4 38.7-80.0 [facility] HospitalLymphocytes (%) (Auto)2019-05-14 14:02:00 * Test Item Value Reference Range Interpretation Comments Lymphocytes (%) (Auto) (test code = 736-9) 18.4 18.0-39.1 [facility] HospitalMonocytes (%) (Auto)2019-05-14 14:02:00* Test Item Value Reference Range Interpretation Comments Monocytes (%) (Auto) (test code = 5905-5) 7.1 4.4-11.3 [facility] HospitalEosinophils (%) (Auto)2019-05-14 14:02:00 * Test Item Value Reference Range Interpretation Comments Eosinophils (%) (Auto) (test code = 713-8) 0.1 0.0-6.0 [facility] HospitalBasophils (%) (Auto)2019-05-14 14:02:00* Test Item Value Reference Range Interpretation Comments Basophils (%) (Auto) (test code = 706-2) 0.2 0.0-1.0 [facility] HospitalIM GRANULOCYTES %2019-05-14 14:02:00* Test Item Value Reference Range Interpretation Comments IM GRANULOCYTES % (test code = IM GRANULOCYTES %) 0.8 0.0- 1.0 [facility] HospitalNeutrophils # (Auto)2019-05-14 14:02:00* Test Item Value Reference Range Interpretation Comments Neutrophils # (Auto) (test code = 751-8) 11.7 2.1-6.9 H [facility] HospitalLymphocytes # (Auto)2019-05-14 14:02:00* Test Item Value Reference Range Interpretation Comments Lymphocytes # (Auto) (test code = 37843-7) 2.9 1.0-3.2 [facility] HospitalMonocytes # (Auto)2019-05-14 14:02:00* Test Item Value Reference Range Interpretation Comments Monocytes # (Auto) (test code = 742-7) 1.1 0.2-0.8 H [facility] HospitalEosinophils # (Auto)2019-05-14 14:02:00* Test Item Value Reference Range Interpretation Comments Eosinophils # (Auto) (test code = 711-2) 0.0 0.0-0.4 [facility] HospitalBasophils # (Auto)2019-05-14 14:02:00* Test Item Value Reference Range Interpretation Comments Basophils # (Auto) (test code = 704-7) 0.0 0.0-0.1 [facility] HospitalAbsolute Immature Granulocyte (auto 2019-05-14 14:02:00* Test Item Value Reference Range Interpretation Comments Absolute Immature Granulocyte (auto (alirio t code = Absolute Immature Granulocyte (auto) 0.13 0-0.1 H [facility] HospitalUrine Aguxl3257-08-46 14:01:00* Test Item Value Reference Range Interpretation Comments Urine Color (test code = 5778-6) YELLOW YELLOW [facility] HospitalUrine Exzozlu0418-89-59 14:01:00* Test Item Value Reference Range Interpretation Comments Urine Clarity (test code = 96868-1) CLEAR CLEAR [facility] HospitalUrine Specific Msxivbe1821-96-85 14:01:00 * Test Item Value Reference Range Interpretation Comments Urine Specific [place] (test code = 5811-5) 1.015 1.010-1.02 5 [facility] HospitalUrine uY1750-20-79 14:01:00* Test Item Value Reference Range Interpretation Comments Urine pH (test code = 53915-9) 7.5 5-7 [facility] HospitalUrine Leukocyte Lqlthtae3201-97-69 14:01:00* Test Item Value Reference Range Interpretation Comments Urine Leukocyte Esterase (test code = 86785-0) TRACE NEGATIV E H [facility] HospitalUrine Oarbpdy8997-55-30 14:01:00* Test Item Value Reference Range Interpretation Comments Urine Nitrite (test code = 93513-1) NEGATIVE NEGATIVE [facility] HospitalUrine Hsgkasu4350-22-05 14:01:00* Test Item Value Reference Range Interpretation Comments Urine Protein (test code = 91378-6) TRACE NEGATIVE H [facility] HospitalUrine Glucose (UA)2019-05-14 14:01:00* Test Item Value Reference Range Interpretation Comments Urine Glucose (UA) (test code = 24012-2) NEGATIVE NEGATIVE [facility] HospitalUrine Wsivloe0251-24-61 14:01:00* Test Item Value Reference Range Interpretation Comments Urine Ketones (test code = 99666-2) NEGATIVE NEGATIVE [facility] Ipafuwxbnfcz4631-58-86 14:01:00* Test Item Value Reference Range Interpretation Comments Urine Urobilinogen (test code = 55383-6) 0.2 0.2-1 [facility] HospitalUrine Gpnitfqnu8772-42-44 14:01:00* Test Item Value Reference Range Interpretation Comments Urine Bilirubin (test code = 1977-8) NEGATIVE NEGATIVE [facility] HospitalUrine Xqavd8553-52-72 14:01:00* Test Item Value Reference Range Interpretation Comments Urine Blood (test code = 25930-6) TRACE NEGATIVE [facility] HospitalWhite Blood Tfnyh5652-27-53 09:06:00* Test Item Value Reference Range Interpretation Comments White Blood Count (test code = 6690-2) 8.07 4.8-10.8 [facility] HospitalRed Blood Hlyib3820-38-03 09:06:00* Test Item Value Reference Range Interpretation Comments Red Blood Count (test code = 789-8) 5.03 3.6-5.1 [facility] HospitalHemoglobin2018-12-18 09:06:00* Test Item Value Reference Range Interpretation Comments Hemoglobin (test code = 78133-2) 14.2 12.0-16.0 [facility] HospitalHematocrit2018-12-18 09:06:00* Test Item Value Reference Range Interpretation Comments Hematocrit (test code = 4544-3) 44.4 34.2-44.1 H [facility] HospitalMean Corpuscular Iywtao0047-29-77 09:06:00* Test Item Value Reference Range Interpretation Comments Mean Corpuscular Volume (test code = 787-2) 88.3 81-99 [facility] HospitalMean Corpuscular Rnsqkcfriv4365-79-75 09:06:00* Test Item Value Reference Range Interpretation Comments Mean Corpuscular Hemoglobin (test code = 785-6) 28.2 28-32 [facility] Hemoglobin Concent 2018-07-26 09:06:00* Test Item Value Reference Range Interpretation Comments Mean Corpuscular Hemoglobin Concent (test code = 786-4) 32.0 31-35 [facility] HospitalRed Cell Distribution Wqtxa1978-11-23 09:06:00* Test Item Value Reference Range Interpretation Comments Red Cell Distribution Width (test code = 64761-3) 13.7 11.7 -14.4 [facility] HospitalPlatelet Ygcyi8301-82-64 09:06:00* Test Item Value Reference Range Interpretation Comments Platelet Count (test code = 777-3) 207 140-360 [facility] HospitalNeutrophils (%) (Auto)2018-07-26 09:06:00 * Test Item Value Reference Range Interpretation Comments Neutrophils (%) (Auto) (test code = 24416-5) 55.0 38.7-80.0 [facility] HospitalLymphocytes (%) (Auto)2018-07-26 09:06:00 * Test Item Value Reference Range Interpretation Comments Lymphocytes (%) (Auto) (test code = 736-9) 33.6 18.0-39.1 [facility] HospitalMonocytes (%) (Auto)2018-07-26 09:06:00* Test Item Value Reference Range Interpretation Comments Monocytes (%) (Auto) (test code = 5905-5) 7.7 4.4-11.3 [facility] HospitalEosinophils (%) (Auto)2018-07-26 09:06:00 * Test Item Value Reference Range Interpretation Comments Eosinophils (%) (Auto) (test code = 713-8) 3.0 0.0-6.0 [facility] HospitalBasophils (%) (Auto)2018-07-26 09:06:00* Test Item Value Reference Range Interpretation Comments Basophils (%) (Auto) (test code = 706-2) 0.5 0.0-1.0 [facility] HospitalIM GRANULOCYTES %2018-07-26 09:06:00* Test Item Value Reference Range Interpretation Comments IM GRANULOCYTES % (test code = IM GRANULOCYTES %) 0.2 0.0- 1.0 [facility] HospitalNeutrophils # (Auto)2018-07-26 09:06:00* Test Item Value Reference Range Interpretation Comments Neutrophils # (Auto) (test code = 751-8) 4.4 2.1-6.9 [facility] HospitalLymphocytes # (Auto)2018-07-26 09:06:00* Test Item Value Reference Range Interpretation Comments Lymphocytes # (Auto) (test code = 86348-2) 2.7 1.0-3.2 [facility] HospitalMonocytes # (Auto)2018-07-26 09:06:00* Test Item Value Reference Range Interpretation Comments Monocytes # (Auto) (test code = 742-7) 0.6 0.2-0.8 [facility] HospitalEosinophils # (Auto)2018-07-26 09:06:00* Test Item Value Reference Range Interpretation Comments Eosinophils # (Auto) (test code = 711-2) 0.2 0.0-0.4 [facility] HospitalBasophils # (Auto)2018-07-26 09:06:00* Test Item Value Reference Range Interpretation Comments Basophils # (Auto) (test code = 704-7) 0.0 0.0-0.1 [facility] HospitalAbsolute Immature Granulocyte (auto 2018-07-26 09:06:00* Test Item Value Reference Range Interpretation Comments Absolute Immature Granulocyte (auto (alirio t code = Absolute Immature Granulocyte (auto) 0.02 0-0.1 [facility] TSUXM9755-49-27 09:05:00 [facility] [address] [address] Patient Name: RACHAEL ASCENCIO MR #: [id number] : 1955 Age/Sex: 63/F Req #: [id number] Adm Physician: Ordered by: ANKUR FRANKLIN MD Report #: [id number] Location: OR Room/Bed: Procedure: [id number] DX/CHEST 2 VIEWS Exam Date: 07/26/18 Exam [...]
[2020-04-01] MEDS ORDERED: DIAZEPAM 2 MG TAB PO ONE (14:45)
--- NOTE | 2020-04-01 14:47 | NUR ---
PATIENT TO ROOM HOOKED ON CLIENT CARE MANAGER
--- NOTE | 2020-04-01 15:07 | Emergency Department Note ---
History of Present Illnes History of Present Illness Chief Complaint: General Medicine Complaints History of Present Illness This is a 65 year old female was checking her blood pressure noted to be in the 160s and checked it again, and instructed again, up to 200. Patient less than 1 week For medication change. Denies any symptoms. No chest pain or shortness of breath, no visual field changes, no headache. . Historian: Patient Arrival Mode: Car Onset (how long ago): day(s) (1) Radiation: Reports non-radiation Severity: moderate Onset quality: gradual Duration (how long): day(s) (1) Progression: waxing and waning Chronicity: recurrent Context: Denies recent illness, Denies recent surgery Relieving factors: none Exacerbating factors: other (anxiety) Past Medical/Family History Physician Review I have reviewed the patient's past medical and family history. Any updates have been documented here. Past Medical History Recent Fever: No Clinical Suspicion of Infectio: No New/Unexplained Change in Ment: No Past Medical History: Hypertension, Hyperlipedemia Other Medical History: OBESITY NON SMOKER Past Surgical History: Cholecysctectomy, Hysterectomy Other Surgery: RIGHT WRIST Social History Smoking Cessation: Unknown if ever smoked Counseling Performed: No Alcohol Use: None Any Illegal Drug Use: No Other Last Tetanus: UTD Any Pre-Existing Lines (PICC,: No Review of Systems Review of Systems Constitutional: Reports no symptoms EENTM: Reports no symptoms Cardiovascular: Reports no symptoms Respiratory: Reports no symptoms Gastrointestinal: Reports no symptoms Genitourinary: Reports no symptoms Musculoskeletal: Reports no symptoms Integumentary: Reports no symptoms Neurological: Reports no symptoms Psychological: Reports no symptoms Endocrine: Reports no symptoms Hematological/Lymphatic: Reports no symptoms Physical Exam Related Data Allergies: Coded Allergies: No Known Allergies (Unverified , 05/05/13) Triage Vital Signs Vital Signs Date Time Temp Pulse Resp B/P (MAP) Pulse Ox O2 Delivery O2 Flow Rate FiO2 04/01/20 14:24 70 18 174/82 100 Room Air 04/01/20 14:50 98.5 Physical Exam CONSTITUTIONAL Constitutional: Present well-developed, Present well-nourished HENT HENT: Present normocephalic, Present atraumatic, Present oropharynx clear/moist, Present nose normal HENT L/R: Present left ext ear normal, Present right ext ear normal EYES Eyes: Reports PERRL, Reports conjunctivae normal NECK Neck: Present ROM normal PULMONARY Pulmonary: Present effort normal, Present breath sounds normal CARDIOVASCULAR Cardiovascular: Present regular rhythm, Present heart sounds normal, Present capillary refill normal, Present normal rate GASTROINTESTINAL Abdominal: Present soft, Present nontender, Present bowel sounds normal GENITOURINARY Genitourinary: Present exam deferred SKIN Skin: Present warm, Present dry MUSCULOSKELETAL Musculoskeletal: Present ROM normal NEUROLOGICAL Neurological: Present alert, Present oriented x 3, Present no gross motor or sensory deficits PSYCHOLOGICAL Psychological: Present mood/affect normal, Present judgement normal Assessment & Plan Medical Decision Making [facility] EKG interpreted by me shows normal sinus rhythm, normal axis, left axis deviation, no acute ST changes. Patient here with a significant medical hypertension, patient after medicine for anxiety with blood pressure in the 120s, we will advise her to keep a blood pressure log and take this information to her primary care doctor. Assessment & Plan Final Impression: (1) Hypertension (2) Anxiety Depart Disposition: HOME, SELF-CARE Last Vital Signs Date Time Temp Pulse Resp B/P (MAP) Pulse Ox O2 Delivery O2 Flow Rate FiO2 04/01/20 14:58 63 17 129/68 98 Room Air 04/01/20 14:50 98.5 Home Meds Reported Medications Losartan Potassium (LOSARTAN POTASSIUM) 25 Mg Tablet, 25 MG PO DAILY 05/04/13 Medications in the ED Diazepam 2 mg ONCE ONCE PO Last administered on 04/01/20at 14:45; Admin Dose 2 MG; Start 04/01/20 at 14:45; Stop 04/01/20 at 14:46; Status DC COLLEEN SHAH MD Apr 01, 2020 15:07
== END 2020-04-01 15:18 | disposition home or self-care (01) ==
LOC: ER 14:30
DX: I10 Essential (primary) hypertension (principal); F41.9 Anxiety disorder, unspecified; E78.5 Hyperlipidemia, unspecified; E66.9 Obesity, unspecified
CPT/HCPCS: 93005; 99283